=== PATIENT | female | born 1960 | race Caucasian/White ===

== ENCOUNTER 2017-09-30 14:25 | Emergency (ER) | payer OTHER ==
--- OUTSIDE RECORDS SUMMARY | 2017-09-30 14:28 | XMS REPORT | Clinical Summary ---
:1960 Author Organization [facility] Address [address] [place] [address] Care Team Providers Name Role Phone Kevon Wiggins MD Primary Care Provider Allergies Active Allergy Reactions Severity Noted Date Comments Meperidine GI Intolerance 01/30/2017 VOMITTING Iodine Rash Low 01/30/2017 Penicillin G Shortness Of Breath, Rash High 01/30/2017 Current Medications Prescription Sig. Disp. Refills Start Date End Date Status PARoxetine (PAXIL) Take 40 mg by 0 12/10/2016 Active 40 MG tablet mouth daily. valsartan (DIOVAN) Take 160 mg by 0 01/10/2017 Active 160 MG tablet mouth daily. metoprolol tartrate Take 1 tablet 0 12/10/2016 Active (LOPRESSOR) 100 mg by mouth tablet daily. rOPINIRole (REQUIP) Take 1 tablet 0 12/10/2016 Active 0.5 MG tablet by mouth daily. HYDROcodone-acetami Take 1 tablet 0 01/12/2017 Active nophen (NORCO) by mouth every 7.5-325 mg per 4 (four) hours tablet as needed. atorvastatin Take 1 tablet 0 12/10/2016 Active (LIPITOR) 10 MG by mouth tablet daily. zolpidem (AMBIEN) Take 1 tablet 0 01/12/2017 Active 10 mg tablet by mouth as needed. dicyclomine Take 10 mg by Active (BENTYL) 10 MG mouth 4 (four) capsule times a day before meals and nightly. esomeprazole Take 20 mg by Active (NexIUM) 20 MG mouth daily capsule before breakfast. methocarbamol Take 1 tablet 40 tablet 3 02/02/2017 Active (ROBAXIN-750) 750 every 6 hours MG tablet as needed for spasms methocarbamol Take 1 tablet 0 01/12/2017 Discontinued (ROBAXIN) 500 MG by mouth 3 7 tablet (three) times a day. traMADol (ULTRAM) Take 1 tablet 0 01/12/2017 Discontinued 50 mg tablet by mouth 7 daily. docusate sodium Take 1 capsule 60 capsule 0 02/02/2017 (COLACE) 100 MG (100 mg total) 7 capsule by mouth 2 (two) times a day for 30 days. levoFLOXacin Take 1 tablet 2 tablet 0 02/05/2017 (LEVAQUIN) 500 MG (500 mg total) 7 tablet by mouth daily for 2 days. traMADol (ULTRAM) Take 1 tablet 60 tablet 0 02/05/2017 50 mg tablet (50 mg total) 7 by mouth every 6 (six) hours as needed for moderate pain for up to 15 days. Active Problems Problem Noted Date Lumbar degenerative disc disease 02/02/2017 Encounters Date Type Specialty Care Team Description 07/28/2017 Hospital Encounter Radiology Raulito Hopkins, Degeneration of lumbar intervertebral disc 07/24/2017 Transcribe Orders Access Raulito Hopkins, Degeneration of lumbar intervertebral disc (Primary Dx) 02/19/2017 Hospital Encounter Radiology Raulito Hopkins, DDD (degenerative disc disease), cervical; Lumbar stenosis 02/19/2017 Transcribe Orders Access Raulito Hopkins, DDD (degenerative disc disease), cervical (Primary Dx); Lumbar stenosis 02/02/2017 - Hospital Encounter General Internal Raulito Hopkins, Lumbar degenerative disc disease; 02/05/2017 Medicine Lumbar stenosis Yannick Moore MD Li, Wang, MD 02/02/2017 Procedure Pass General Surgery 02/02/2017 Surgery General Surgery Raulito Hopkins, LUMBAR FOUR - FIVE, LUMBAR FIVE - SACRAL ONE ANTERIOR LUMBAR INTERBODY FUSION 01/30/2017 Pre-Admit Testing Pre-Admission Raulito Hopkins, Preop testing Appointment Testing (Primary Dx) 01/28/2017 Anesthesia Event General Surgery Mony Albarran FNP 01/28/2017 Telephone Pre-Admission Maura De Dios Testing after 09/29/2016 Family History Medical History Relation Name Comments No Known Problems Father Diabetes Mother Relation Name Status Comments Father Mother Alive Social History Tobacco Use Types Packs/Day Years Used Date Former Smoker Quit: 2005 Smokeless Tobacco: Never Used Alcohol Use Drinks/Week oz/Week Comments No Sex Assigned at Date Recorded Not on file Last Filed Vital Signs Vital Sign Reading Time Taken Blood Pressure 170/89 02/05/2017 7:53 PM CDT Pulse 95 02/05/2017 7:53 PM CDT Temperature 37.6 C (99.6 F) 02/05/2017 7:53 PM CDT Respiratory Rate 18 02/05/2017 7:53 PM CDT Oxygen Saturation 100% 02/05/2017 7:53 PM CDT Inhaled Oxygen Concentration - - Weight 94.8 kg (209 lb 1.6 oz) 02/05/2017 5:49 AM CDT Height 162.6 cm (5' 4") 02/02/2017 8:52 PM CDT Body Mass Index 35.89 02/05/2017 5:49 AM CDT Plan of Treatment Health Maintenance Due Date Last Done Comments PAP SMEAR 1982 COLONOSCOPY 2011 MAMMOGRAM 2011 INFLUENZA VACCINE 01/27/2018 Implants Implanted Type Area Charge Histotechnologist Device Expiration Model / Serial Identifier Date / Lot Kit Bone Albina Lmbr Tprd 8ml Xxl Infuse - [id number] Human Tissue N/A: MEDTRONIC SPINAL 07/30/2018 [id number] / Implanted: Qty: 1 on 02/02/2017 by Raulito Hopkins MD Implants N/A AND BIOLOGICS / Chip Can Allograft Leader [facility] 15cc 0.1-4mm - [id number] Human Tissue Anterio MUSCULOSKELETAL 08/02/2019 [id number] / Implanted: Qty: 1 on 02/02/2017 by Raulito Hopkins MD Implants r: TRANSPLANT / Spine, FOUNDATION [id number] Multi-L evel Spacer [id number] Prmtr Xlg 8deg 14mm - [id number] [id number] IMPLANT Anterio MEDTRONIC 08/01/2022 [id number] / Implanted: Qty: 1 on 02/02/2017 by Raulito Hopkins MD DEVICES r: SOFAMOR DANEK / Spine, [id number] Multi-L evel Spacer [id number] Prmtr Lg 12deg 12mm - [id number] [id number] IMPLANT Anterio MEDTRONIC 02/19/2024 [id number] / Implanted: Qty: 1 on 02/02/2017 by Raulito Hopkins MD DEVICES r: SOFAMOR DANEK / Spine, 47CR Multi-L evel Sovereign Fa Screw [id number] 5.5 X 25mm - [id number] [id number] IMPLANT Anterio MEDTRONIC [id number] / Implanted: Qty: 2 on 02/02/2017 by Raulito Hopkins MD DEVICES r: SOFAMOR DANEK / Spine, VENDOR LOT NA Multi-L evel Set Screw [id number] 5.5 Ti Ns Brk Off - [id number] IPM IMPLANT Posteri MEDTRONIC [id number] / Implanted: Qty: 6 on 02/02/2017 by Raulito Hopkins MD DEVICES or: SOFAMOR DANEK / Spine, VENDOR LOT NA Multi-L evel Screw [id number] 5.5 Mas 6.5x50 Cc - [id number] IPM IMPLANT Posteri MEDTRONIC [id number] / Implanted: Qty: 4 on 02/02/2017 by Raulito Hopkins MD DEVICES or: SOFAMOR DANEK / Spine, VENDOR LOT NA Multi-L evel Screw [id number] 5.5 Mas 6.5x40 Cc - [id number] IPM IMPLANT Posteri MEDTRONIC [id number] / Implanted: Qty: 2 on 02/02/2017 by Raulito Hopkins MD DEVICES or: SOFAMOR DANEK / Spine, VENDOR LOT NA Sacral Blake [id number] 5.5 Ccm Ns Curv 50mm - [id number] IPM IMPLANT Posteri MEDTRONIC [id number] / Implanted: Qty: 2 on 02/02/2017 by Raulito Hopkins MD DEVICES or: SOFAMOR DANEK / Spine, VENDOR LOT NA Multi-L evel Washer Bone Grft Ti 17mm - [id number] Orthopedic Anterio MEDTRONIC SPINAL [id number] / Implanted: Qty: 2 on 02/02/2017 by Raulito Hopkins MD Trauma r: AND BIOLOGICS / Implants Spine, VENDOR LOT NA Multi-L evel Kit Selnt Fibrin Humn Hmsts Surgy 5ml Evicel - [id number] Surgical Posteri ETHICON - 04/28/2018 [id number] / Implanted: Qty: 1 on 02/02/2017 by Raulito Hopkins MD Implants; or: / Expanders; Spine, [id number] Extenders; Multi-L Surgical evel Wires Kit Selnt Fibrin Humn Hmsts Surgy 5ml Evicel - [id number] Surgical Posteri ETHICON - 04/28/2018 [id number] / Implanted: Qty: 1 on 02/02/2017 by Raulito Hopkins MD Implants; or: / Expanders; Spine, [id number] Extenders; Multi-L Surgical evel Wires Procedures Procedure Name Priority Date/Time Associated Diagnosis Comments IN AN ELECTIVE Routine 02/02/2017 8:40 AM ENDOTRACHEAL AIRWAY CDT Procedure Note - Hector Keita Jr., WARP SPINNER - 02/02/2017 8:39 AM CDT Airway Date/Time: 02/02/2017 8:27 AM Performed by: HECTOR KEITA JR Authorized by: KETAN RODRÍGUEZ Location: OR Urgency: Elective Difficult Airway: No Anesthesiologist: KETAN RODRÍGUEZ Resident/WARP SPINNER: HECTOR KEITA JR Performed by: resident/WARP SPINNER Preoxygenated with 100% O2: Yes C-spine Precautions Maintained Throughout: Yes Mask Ventilation: Easy mask Final Airway Type: Endotracheal airway Final Endotracheal Airway: ETT Cuffed: Yes Technique Used: Direct laryngoscopy Devices/Methods Used in Placement: Intubating stylet Insertion Site: Oral Blade Type: Qureshi Laryngoscope Blade/Videolaryngoscope Blade Size: 2 ETT Size (mm): 7.0 Cuff at minimum occlusion pressure: Yes Measured from: Lips ETT to Lips (cm): 21 Placement Verified by: CO2 detection, direct visualization and equal breath sounds Laryngoscopic view: Grade I - full view of glottis Rapid Sequence Induction (RSI): No Modified RSI: No Number of Attempts at Approach: 1 Smooth IV induction; DL x1; ETT 7.0 @21cm; Atraumatic; Suctioned; +ETCO2 after 09/29/[address] Lumbar Spine Wo Contrast (07/28/2017 1:24 PM)Only the most recent of2 resultswithin the time period is included. Specimen Performing [facility] [address] [place] [address] Narrative EXAMINATION:CT LUMBAR SPINE WO CONTRAST CLINICAL HISTORY:M51.36 Other intervertebral disc degenerationlumbar region, M51.36 COMPARISON:February 03, 2017 TECHNIQUE: CT imaging was performed with iterative reconstruction technique and /or automated exposure control to reduce radiation dose. IMPRESSION: 5 nonrib-bearing lumbar type vertebrae. Stable L4-S1 fusion hardware and laminectomy changes. Interval partial bony bridging of the disc level. Interval resolution of foci of air. There is some residual fat stranding and edematous changes in the posterior paraspinal soft tissues at the level of the laminectomies. No definite fluid collections. Lumbar spine alignment is within normal limits. No fractures or aggressive bony lesions. No significant canal narrowing. Mild degenerative changes of bilateral sacroiliac joints. [facility]-[id number] Procedure Note Interface, Radiology Results Incoming - 07/28/2017 2:38 PM TOPPER PRESS OPERATOR AUTOMATIC EXAMINATION: CT LUMBAR SPINE WO CONTRAST CLINICAL HISTORY: M51.36 Other intervertebral disc degeneration lumbar region , M51.36 COMPARISON: February 03, 2017 TECHNIQUE: CT imaging was performed with iterative reconstruction technique and /or automated exposure control to reduce radiation dose. IMPRESSION: 5 nonrib-bearing lumbar type vertebrae. Stable L4-S1 fusion hardware and laminectomy changes. Interval partial bony bridging of the disc level. Interval resolution of foci of air. There is some residual fat stranding and edematous changes in the posterior paraspinal soft tissues at the level of the laminectomies. No definite fluid collections. Lumbar spine alignment is within normal limits. No fractures or aggressive bony lesions. No significant canal narrowing. Mild degenerative changes of bilateral sacroiliac joints. [facility]-[id number] XR Lumbar Spine Ap Lateral Flexion And Extension (02/19/2017 9:41 AM) Specimen Performing Laboratory [facility] [address] [place] [address] Narrative EXAMINATION:XR LUMBAR SPINE AP LATERALFLEXION AND EXTENSION CLINICAL HISTORY:M50.30 Other cervical disc degenerationunspecified cervical region, M48.06 Spinal stenosislumbar region, lumbar ddd lumbar stenosis COMPARISON:CT lumbar spine February 03, 2017. FINDINGS: 1.There are 5 nonrib-bearing lumbar vertebrae. There is mild curvature of the lumbar spine convex towards the right. 2.Postop changes are again noted with bilateral laminectomy defects at L5 and laminotomy changes at the inferior aspect of L4 and superior aspect of S1. There are bilateral pedicle screw and vertical blake internal fixation devices from L4 to S1 with screws present bilaterally at each level. There are grafts in the disc spaces at L4-5 and L5-S1 with anchoring washer and screws through the anterior superior aspect of the centrum of L5 and another through the anterior superior aspect of the centrum of S1. There is very slight retrolisthesis at L4-5.Otherwise the alignment is normal and there is no abnormal movement on the dynamic views. The interbody fusions are not mature in appearance at this time. 3.There is no other significant finding in the spine. There are surgical clips in the right upper quadrant. IMPRESSION: Postoperative anterior and posterior fusion changes L4-5 and L5-S1. These changes were in anacute phase on the prior study. Otherwise no significant interval change. [facility]-[id number] Procedure Note Hm Interface, Radiology Results Incoming - 02/19/2017 11:45 AM CDT EXAMINATION: XR LUMBAR SPINE AP LATERAL FLEXION AND EXTENSION CLINICAL HISTORY: M50.30 Other cervical disc degeneration unspecified cervical region, M48.06 Spinal stenosis lumbar region, lumbar ddd lumbar stenosis COMPARISON: CT lumbar spine February 03, 2017. FINDINGS: 1. There are 5 nonrib-bearing lumbar vertebrae. There is mild curvature of the lumbar spine convex towards the right. 2. Postop changes are again noted with bilateral laminectomy defects at L5 and laminotomy changes at the inferior aspect of L4 and superior aspect of S1. There are bilateral pedicle screw and vertical blake internal fixation devices from L4 to S1 with screws present bilaterally at each level. There are grafts in the disc spaces at L4-5 and L5-S1 with anchoring washer and screws through the anterior superior aspect of the centrum of L5 and another through the anterior superior aspect of the centrum of S1. There is very slight retrolisthesis at L4-5. Otherwise the alignment is normal and there is no abnormal movement on the dynamic views. The interbody fusions are not mature in appearance at this time. 3. There is no other significant finding in the spine. There are surgical clips in the right upper quadrant. IMPRESSION: Postoperative anterior and posterior fusion changes L4-5 and L5-S1. These changes were in an acute phase on the prior study. Otherwise no significant interval change. [facility]-[id number] Estimated GFR (02/05/2017 5:00 AM)Only the most recent of3 resultswithin the time period is included. Component Value Ref Range GFR Non Af Amer >90 mL/min/1.73 m2 GFR Af Amer >90 mL/min/1.73 m2 Comment: Chronic kidney disease: <60 mL/min/1.73m2 Kidney failure: <15 mL/min/1.73m2 The estimated GFR is calculated from the IDMS-traceable Modification of Diet in Renal Disease Equation. The accuracy of the calculation is poor when the creatinine is normal. Calculated values >90 mL/min/1.73m2 are not reported. This equation has not been validated in children (<18 years), women, the elderly (>70 years), or ethnic groups other than Caucasians and Americans. Specimen Performing Laboratory Plasma specimen [facility] DEPARTMENT OF PATHOLOGY AND GENOMIC MEDICINE [address] [place] [id number] CBC with platelet and differential (02/05/2017 5:00 AM)Only the most recent of3 resultswithin the time period is included. Component Value Ref Range WBC 7.2 4.5 - 11.0 k/uL RBC 3.02 (L) 4.20 - 5.50 m/uL HGB 9.0 (L) 12.0 - 16.0 g/dL HCT 28.4 (L) 37.0 - 47.0 % MCV 94.0 82.0 - 100.0 fL MCH 29.8 27.0 - 34.0 pg MCHC 31.7 31.0 - 37.0 g/dL RDW - SD 43.3 37.0 - 55.0 fL MPV 10.4 6.9 - 11.0 fL Platelet count 237 150 - 400 K/uL Nucleated RBC 0.00 /100 WBC Neutrophils 59.6 39.0 - 69.0 % Lymphocytes 29.6 25.0 - 45.0 % Monocytes 9.4 0.0 - 10.0 % Eosinophils 0.7 0.0 - 5.0 % Basophils 0.3 0.0 - 1.0 % Immature granulocytes 0.4 0.0 - 1.0 % Specimen Performing Laboratory Blood [facility] DEPARTMENT OF PATHOLOGY AND [facility] MEDICINE [address] [place] [address] Basic metabolic panel (02/05/2017 5:00 AM)Only the most recent of3 resultswithin the time period is included. Component Value Ref Range Sodium 141 135 - 148 mEq/L Potassium 3.9 3.5 - 5.0 mEq/L Chloride 104 98 - 112 mEq/L CO2 26 24 - 31 mEq/L Anion gap 11 7 - 15 mEq/L Comment: Starting from September , anion gap calculation no longer incorporates potassium. Please note the change. BUN 19 6 - 20 mg/dL Creatinine 0.6 0.5 - 0.9 mg/dL Glucose 100 (H) 65 - 99 mg/dL Calcium 8.7 8.3 - 10.2 mg/dL Specimen Performing Laboratory Plasma specimen [facility] DEPARTMENT OF PATHOLOGY AND GENOMIC MEDICINE [address] [place] [address] XR Chest 1 Vw Portable (02/02/2017 4:22 PM) Specimen Performing Laboratory [facility] [address] [place] [address] Narrative Examination:XR CHEST 1 VW PORTABLE Clinical history:"UVC Line Placement, post central line placement" Comparison:01/27/2017 Impression: There are no apparent infiltrates, pleural effusions, or pneumothoraces. Faint left basilar atelectasis is noted.A right jugular nontunneled central venous catheter is in place, the tip of which is located within the cavoatrial junction.The cardiomediastinal silhouette is not enlarged and the imaged bones are without apparent acute abnormalities. [facility]-[id number] Procedure Note Interface, Radiology Results Incoming - 02/02/2017 4:26 PM CDT Examination: XR CHEST 1 VW PORTABLE Clinical history: "UVC Line Placement, post central line placement" Comparison: 01/27/2017 Impression: There are no apparent infiltrates, pleural effusions, or pneumothoraces. Faint left basilar atelectasis is noted. A right jugular nontunneled central venous catheter is in place, the tip of which is located within the cavoatrial junction. The cardiomediastinal silhouette is not enlarged and the imaged bones are without apparent acute abnormalities. [id number] [place] > I Hour (02/02/2017 3:00 PM) Specimen Performing Laboratory [facility] [address] [place] [address] Narrative OR [place] 1 HOUR CLINICAL HISTORY: IMPRESSION: Fluoroscopy was provided. No radiologist present.Please see procedure report for discussion of procedure, findings and fluoroscopic time. [id number] Procedure Note Interface, Radiology Results Incoming - 02/02/2017 4:51 PM CDT OR [place] 1 HOUR CLINICAL HISTORY: IMPRESSION: Fluoroscopy was provided. No radiologist present. Please see procedure report for discussion of procedure, findings and fluoroscopic time. [id number] Urinalysis screen and microscopy, with reflex to culture (02/02/2017 8:33 AM) Component Value Ref Range Specimen site Catheterized Color, UA Yellow Appearance, UA Clear Specific gravity, UA 1.019 1.001 - 1.030 pH, UA 5.0 5.0 - 9.0 Protein, UA Negative Negative Glucose, UA Negative Negative Ketones, UA Negative Negative Bilirubin, UA Negative Negative Blood, UA Small (A) Negative Nitrite, UA Negative Negative Urobilinogen, UA <2.0 <2.0 E.U./dL Leukocyte esterase, UA Small (A) Negative Epithelial cells, UA 1 /HPF Round epithelial cells, UA 1 0 - 5 /HPF WBC, UA 48 (H) 0 - 4 /HPF RBC, UA 4 (H) 0 - 2 /HPF Bacteria, UA None seen None seen WBC clumps, UA Few (A) Yeast, UA Few (A) Yeast with pseudohyphae, UA None seen Amorphous crystals Few Specimen Performing Laboratory Urine - Urine, catheter [facility] DEPARTMENT OF PATHOLOGY AND GENOMIC MEDICINE [id number] [place] [address] Gram stain (02/02/2017 8:33 AM) Component Value Ref Range Gram stain result Rare WBC's No organisms seen Comment: Specimen Information Specimen Source: Urine Specimen Site: See UA Specimen Performing Laboratory Urine [facility] DEPARTMENT OF PATHOLOGY AND GENOMIC MEDICINE [address] [place] [phone] Urine culture (02/02/2017 8:33 AM) Component Value Ref Range Urine culture isolate Escherichia coli 10-5 cfu/ml (A) Comment: Specimen Information Specimen Source: Urine Specimen Site: See UA Specimen Performing Laboratory Urine [facility] DEPARTMENT OF PATHOLOGY AND GENOMIC MEDICINE [address] [place] [address] Organism Antibiotic Method Susceptibility Escherichia coli Ampicillin COURTNEY <=2 mcg/mL: Susceptible Escherichia coli Amoxicillin/Clavulanate COURTNEY 4/2 mcg/mL: Susceptible Escherichia coli Amikacin COURTNEY <=4 mcg/mL: Susceptible Escherichia coli Aztreonam COURTNEY <=1 mcg/mL: Susceptible Escherichia coli Ceftazidime COURT[place] <=0.5 mcg/mL: Susceptible Escherichia coli Ciprofloxacin COURTNEY <=0.5 mcg/mL: Susceptible Escherichia coli Ceftriaxone COURTNEY <=0.5 mcg/mL: Susceptible Escherichia coli Cefuroxime Sodium COURTNEY <=4 mcg/mL: Susceptible Escherichia coli Cefazolin COURTNEY 2 mcg/mL: Susceptible Escherichia coli Cefipime COURTNEY <=0.5 mcg/mL: Susceptible Escherichia coli Nitrofurantoin COURTNEY <=16 mcg/mL: Susceptible Escherichia coli Cefoxitin COURTNEY <=4 mcg/mL: Susceptible Escherichia coli Gentamicin COURTNEY <=1 mcg/mL: Susceptible Escherichia coli Imipenem [place] <=0.25 mcg/mL: Susceptible Escherichia coli Levofloxacin COURTNEY <=1 mcg/mL: Susceptible Escherichia coli Tobramycin COURTNEY 1 mcg/mL: Susceptible Escherichia coli Ampicillin/Sulbactam COURTNEY 4/2 mcg/mL: Susceptible Escherichia coli Trimethoprim/Sulfamethoxazole COURTNEY <=0.5/9.5 mcg/mL: Susceptible Escherichia coli Tetracycline COURTNEY <=1 mcg/mL: Susceptible Escherichia coli Piperacillin/Tazobactam COURTNEY <=2/4 mcg/mL: Susceptible Escherichia coli Ertapenem COURTNEY <=0.125 mcg/mL: Susceptible POC glucose (02/02/2017 6:37 AM) Component Value Ref Range POC glucose 102 (H) 65 - 99 mg/dL Comment: No Action Needed Meter ID: [id number] Vice President Sales And Marketing: Bill Harper Specimen Performing Laboratory [facility] DEPARTMENT OF PATHOLOGY AND GENOMIC MEDICINE [address] [place] [phone] Type and screen (01/30/2017 3:06 PM) Component Value Ref Range ABO grouping A Rh type POS Antibody screen (gel) NEG Specimen Performing Laboratory Blood [facility] DEPARTMENT OF PATHOLOGY AND GENOMIC MEDICINE [address] [place] [address] after 09/29/2016 Insurance Payer Benefit Plan / Group Subscriber ID Type Phone Address MEDICARE MEDICARE PART A AND B xxxxxxxxxx Medicare [place], [place] [phone] [address]
[2017-09-30 15:24] LABS: Potassium 3.6 mEq/L (3.6-5.0)
[2017-09-30 15:30] LABS: Absolute Lymphocytes (CBC) 1.5 K/uL (0.7-4.9); Absolute Monocytes 0.3 K/uL (0.1-1.3); Absolute Neutrophil 3.2 K/uL (1.8-8.0); Albumin 4.6 g/dL (3.2-5.5); Basophils % 0.8 % (0-1.3); Bilirubin Direct 0.1 mg/dL (0-0.2); Bilirubin Total 0.9 mg/dL (0.3-1.2); Eosinophils % 2.6 % (0-4.4); Hematocrit 38.7 % (36.0-45.0); Lymphocytes % 29.9 % (15.3-44.8); MCH 29.2 pg (27.0-35.0); MCV 85.3 fL (80-100); Protein, Total 7.1 g/dL (6.0-8.3); RBC Red Blood Cell Count 4.54 M/uL (3.86-4.86)
[2017-09-30] MEDS ORDERED: ONDANSETRON 4 MG/2 ML VIAL ONE (15:40)
[2017-09-30] MEDS ORDERED: MORPHINE 4 MG/ML SYR ONE (15:40)
[2017-09-30] MEDS ORDERED: NA CHLORIDE 0.9% 1,000 ML ONE (15:40)
[2017-09-30 15:54] LABS: Urine Blood TRACE (NEG); Urine Glucose NEGATIVE (NEG); Urine Protein NEGATIVE (NEG); Urine pH 6.5 (5.0-7.0)
[2017-09-30 16:07] LABS: Urine Bacteria NONE SEEN /HPF (<20); Urine Culture Reflex Order NOT NEEDED; Urine RBC <5 /HPF (NONE SEEN)
--- NOTE | 2017-09-30 17:17 | RAD REPORT ---
EXAM DESCRIPTION: CTAbdomen Pelvis W Contrast - 09/30/2017 5:10 pm CLINICAL HISTORY: Abdominal pain. COMPARISON: 07/09/2016, 11/23/2015, 12/06/2012 TECHNIQUE: Biphasic CT imaging of the abdomen and pelvis was performed with 100 ml non-ionic IV cont rast. All CT scans are performed using dose optimization technique as appropriate and may include automated exposure control or mA/KV adjustment according to patient size. FINDINGS: The lung bases are clear.A small hiatal hernia is noted. Diffuse fatty liver is present. Cholecystectomy clips are noted. The spleen, pancreas, adrenal glands and kidneys are within normal limits. No bowel obstruction, free air, free fluid or abscess. The appendix is surgically absent. Lipoma is noted along the left oblique musculature in the left flank inferiorly. Moderate stool is present in t he sigmoid colon. Scattered colonic diverticulosis is seen without diverticulitis. No evidence of sig nificant lymphadenopathy. Postsurgical changes involve lumbar spine with hardware in place. IMPRESSION: No acute intra-abdominal or pelvic finding. Fatty liver. Moderate colonic stool.
--- NOTE | 2017-09-30 17:22 | ER ---
Nurse's Notes [facility] Name: Oneida Lea Age: 57 yrs Sex: Female : 1960 Arrival Date: 09/30/2017 Time: 14:28 Bed 25 Private MD: Diagnosis: Noninfective gastroenteritis and colitis, unspecified Presentation: 09/30 14:37 Presenting complaint: Patient states: "I have diverticulitis". Transition of care: lk1 patient was not received from another setting of care. Onset of symptoms was September 24, 2017. Care prior to arrival: None. 14:37 Method Of Arrival: Ambulatory lk1 14:37 Acuity: CINTHYA 3 lk1 Triage Assessment: 14:39 General: Appears in no apparent distress. Behavior is calm, cooperative, appropriate lk1 for age. Pain: Complains of pain in right lower quadrant and left lower quadrant Pain radiates to low back area Pain currently is 7 out of 10 on a pain scale. GI: Reports cramping, diarrhea, nausea. Historical: - Allergies: 14:39 Demerol; lk1 14:39 PENICILLINS; lk1 14:39 topical iodine; lk1 - Home Meds: 17:05 losartan 100 mg oral tab once daily [Active]; zolpidem 10 mg Oral tab 1 tab once daily tl3 [Active]; hydrocodone-acetaminophen 5-325 mg oral tab 1 tab every 6 hours for Pain [Active]; methocarbamol 750 mg Oral tab 1 tab twice a day [Active]; metronidazole 500 mg Oral tab 1 tab 3 times per day [Active]; Zofran (as hydrochloride) 4 mg oral tab every 8 hours [Active]; Cipro 500 mg oral tab 1 tab 2 times per day [Active]; - PMHx: 14:39 Anxiety; Chronic pain; Depression; Diverticulitis; High Cholesterol; Hypertension; lk1 - PSHx: 14:39 Hysterectomy; Cholecystectomy; Appendectomy; back surgery; spinal fusion; lk1 14:39 Tonsillectomy; lk1 - Immunization history:: Adult Immunizations up to date. - Social history:: Smoking status: Patient/guardian denies using tobacco. Screenin:05 Abuse screen: Denies threats or abuse. Nutritional screening: No deficits noted. tl3 Tuberculosis screening: No symptoms or risk factors identified. Fall Risk None identified. Assessment: 14:51 General: Appears uncomfortable, well groomed, well developed, well nourished, Behavior tl3 is calm, cooperative, appropriate for age. 15:05 Pain: Complains of pain in left upper quadrant and right upper quadrant and back and tl3 low back area and abdomen and left lower quadrant and right lower quadrant Pain currently is 8 out of 10 on a pain scale. 15:05 Neuro: Level of Consciousness is awake, alert, obeys commands, Oriented to person, tl3 place, time, situation, Appropriate for age. Cardiovascular: Heart tones S1 S2 present Capillary refill < 3 seconds in bilateral fingers. Respiratory: Airway is patent Trachea midline Respiratory effort is even, unlabored, Respiratory pattern is regular, symmetrical, Breath sounds are clear bilaterally. GI: Abdomen is round Bowel sounds present X 4 quads. : No signs and/or symptoms were reported regarding the genitourinary system. EENT: No signs and/or symptoms were reported regarding the EENT system. Derm: No signs and/or symptoms reported regarding the dermatologic system. Musculoskeletal: No signs and/or symptoms reported regarding the musculoskeletal system. 16:28 Reassessment: Patient and/or family updated on plan of care and expected duration. Pain tl3 level reassessed. Patient is alert, oriented x 3, equal unlabored respirations, skin warm/dry/pink. pt ambulated to RR, states that Morphine eased pain. 16:32 Reassessment: pt vomiting in restroom. tl3 17:14 Reassessment: Patient and/or family updated on plan of care and expected duration. Pain tl3 level reassessed. Patient is alert, oriented x 3, equal unlabored respirations, skin warm/dry/pink. Patient states symptoms have improved. Vital Signs: 14:40 BP 148 / 98; Pulse 82; Resp 16; Temp 98.1(O); Pulse Ox 97% on R/A; Weight 86.18 kg (R); lk1 Height 5 ft. 4 in. (162.56 cm) (R); Pain 7/10; 16:28 Pain 5/10; tl3 16:28 BP 140 / 95; Pulse 80; Resp 18; Pulse Ox 98% ; tl3 17:37 BP 162 / 89; Pulse 70; Resp 17; Pulse Ox 100% on R/A; dh3 14:40 Body Mass Index 32.61 (86.18 kg, 162.56 cm) lk1 ED Course: 14:28 Patient arrived in ED. rg4 14:38 Triage completed. lk1 14:43 Latasha Cruz FNP-C is [facility]. kb 14:43 Preston Brito MD is Attending Physician. kb 14:43 Arm band placed on right wrist. lk1 14:50 Giovana Ruffin, RN is Primary Nurse. tl3 15:05 Resting quietly. tl3 15:05 Patient has correct armband on for positive identification. Placed in gown. Bed in low tl3 position. Call light in reach. Side rails up X 1. Warm blanket given. 15:05 No provider procedures requiring assistance completed. tl3 15:07 Initial lab(s) drawn, by me, sent to lab. Inserted saline lock: 22 gauge in right dh3 forearm, using aseptic technique. Blood collected. 15:44 Urine Dipstick--Ancillary (enter results) Sent. tl3 16:26 Missed attempt(s): 22 gauge in left antecubital area. IV discontinued, area became red tl3 and infusion stopped flowing. 16:26 Missed attempt(s): 22 gauge in left forearm. tl3 16:26 Missed attempt(s): 24 gauge in right wrist. tl3 16:48 Inserted saline lock: 24 gauge in right antecubital area, using aseptic technique. dh3 16:[address] via wheelchair. tl3 17:10 CT Abd/Pelvis - W/Contrast In Process Unspecified. EDMS 17:13 Patient moved back from CT. tl3 17:59 IV discontinued, intact, bleeding controlled, No redness/swelling at site. Pressure tl3 dressing applied. Administered Medications: 15:35 Drug: NS 0.9% 1000 ml Route: IV; Rate: 1000 ml; Site: left antecubital; Delivery: tl3 Primary tubing; 16:00 Follow up: IV Pause: 09/30/2017 16:00; IV Pause Reason: Limited IV access/Medication tl3 interaction; IV infiltrated 16:35 Follow up: IV Status: Completed infusion; IV Intake: 1000ml tl3 15:35 Drug: Zofran 4 mg Route: IVP; Infused Over: 3 mins; Site: left antecubital; tl3 16:30 Follow up: Response: No adverse reaction; Nausea is decreased tl3 15:35 Drug: morphine 4 mg Route: IVP; Infused Over: 3 mins; Site: left antecubital; tl3 16:30 Follow up: Response: No adverse reaction; Pain is decreased tl3 Intake: 16:35 IV: 1000ml; Total: 1000ml. tl3 Outcome: 17:21 Discharge ordered by MD. villa 17:59 Discharged to home ambulatory. tl3 17:59 Condition: stable 17:59 Discharge instructions given to patient, Instructed on discharge instructions, follow up and referral plans. medication usage, Demonstrated understanding of instructions, follow-up care, medications, Prescriptions given X 2. 18:00 Patient left the ED. tl3 Signatures: Dispatcher [employer] EDMS Latasha Cruz, SU[employer]OR [employer]-C [employer]PER[employer]-Rani Ramirez, RN RN gerard1 Swathi Slade4 Hermelinda Villatoro 3 Giovana Ruffin, RN RN tl3
--- NOTE | 2017-09-30 17:22 | EDPHYS ---
Physician Documentation [facility] Name: Oneida Lea Age: 57 yrs Sex: Female : 1960 Arrival Date: 09/30/2017 Time: 14:28 Bed 25 Private MD: ED Physician Preston Brito HPI: 09/30 14:56 This 57 yrs old Female presents to ER via Ambulatory with complaints of kb Nausea, Diarrhea, Abdominal Pain. 14:56 The patient presents with abdominal pain in the lower abdomen. Onset: The kb symptoms/episode began/occurred 1 week(s) ago. The symptoms do not radiate. Associated signs and symptoms: Pertinent positives: nausea, vomiting, and diarrhea, Pertinent negatives: anorexia, blood in stools, chest pain, constipation, dysuria, fever, headache, hematuria, palpitations, shortness of breath, vaginal discharge, vomiting blood. The symptoms are described as achy. Modifying factors: The symptoms are alleviated by nothing, the symptoms are aggravated by pressure. Severity of pain: At its worst the pain was moderate in the emergency department the pain is unchanged. The patient has not experienced similar symptoms in the past. The patient has not recently seen a physician. Pt states she has been having n/v/d and abd pain for a week. Went to dr funes on Thursday and diagnosed with diverticulitis. Was told to call him if she wasn't starting to get better by today. Reports she called him today, symptoms still the same so she came in. Started cipro and flagyl on Thursday. Historical: - Allergies: 14:39 Demerol; lk1 14:39 PENICILLINS; lk1 14:39 topical iodine; lk1 - Home Meds: 17:05 losartan 100 mg oral tab once daily [Active]; zolpidem 10 mg Oral tab 1 tab once daily tl3 [Active]; hydrocodone-acetaminophen 5-325 mg oral tab 1 tab every 6 hours for Pain [Active]; methocarbamol 750 mg Oral tab 1 tab twice a day [Active]; metronidazole 500 mg Oral tab 1 tab 3 times per day [Active]; Zofran (as hydrochloride) 4 mg oral tab every 8 hours [Active]; Cipro 500 mg oral tab 1 tab 2 times per day [Active]; - PMHx: 14:39 Anxiety; Chronic pain; Depression; Diverticulitis; High Cholesterol; Hypertension; lk1 - PSHx: 14:39 Hysterectomy; Cholecystectomy; Appendectomy; back surgery; spinal fusion; lk1 14:39 Tonsillectomy; lk1 - Immunization history:: Adult Immunizations up to date. - Social history:: Smoking status: Patient/guardian denies using tobacco. ROS: 14:55 Constitutional: Negative for fever, chills, and weight loss, Cardiovascular: Negative kb for chest pain, palpitations, and edema, Respiratory: Negative for shortness of breath, cough, wheezing, and pleuritic chest pain, Back: Negative for injury and pain, : Negative for injury, bleeding, discharge, and swelling, MS/Extremity: Negative for injury and deformity, Skin: Negative for injury, rash, and discoloration, Neuro: Negative for headache, weakness, numbness, tingling, and seizure. 14:55 Abdomen/GI: Positive for abdominal pain, nausea, vomiting, and diarrhea, Negative for constipation, abdominal cramps, abdominal distension, anorexia. Exam: 14:55 Constitutional: This is a well developed, well nourished patient who is awake, alert, kb and in no acute distress. Head/Face: Normocephalic, atraumatic. ENT: Nares patent. No nasal discharge, no septal abnormalities noted. Tympanic membranes are normal and external auditory canals are clear. Oropharynx with no redness, swelling, or masses, exudates, or evidence of obstruction, uvula midline. Mucous membranes moist. Neck: Trachea midline, no thyromegaly or masses palpated, and no cervical lymphadenopathy. Supple, full range of motion without nuchal rigidity, or vertebral point tenderness. No Meningismus. Chest/axilla: Normal chest wall appearance and motion. Nontender with no deformity. No lesions are appreciated. Cardiovascular: Regular rate and rhythm with a normal S1 and S2. No gallops, murmurs, or rubs. Normal PMI, no JVD. No pulse deficits. Respiratory: Lungs have equal breath sounds bilaterally, clear to auscultation and percussion. No rales, rhonchi or wheezes noted. No increased work of breathing, no retractions or nasal flaring. Skin: Warm, dry with normal turgor. Normal color with no rashes, no lesions, and no evidence of cellulitis. MS/ Extremity: Pulses equal, no cyanosis. Neurovascular intact. Full, normal range of motion. Neuro: Awake and alert, GCS 15, oriented to person, place, time, and situation. Cranial nerves II-XII grossly intact. Motor strength 5/5 in all extremities. Sensory grossly intact. Cerebellar exam normal. Normal gait. 14:55 Abdomen/GI: Inspection: abdomen appears normal, Bowel sounds: normal, in all quadrants, Palpation: soft, in all quadrants, mild abdominal tenderness, in the left upper quadrant and right lower quadrant, moderate abdominal tenderness, in the right upper quadrant and left lower quadrant. Vital Signs: 14:40 BP 148 / 98; Pulse 82; Resp 16; Temp 98.1(O); Pulse Ox 97% on R/A; Weight 86.18 kg (R); lk1 Height 5 ft. 4 in. (162.56 cm) (R); Pain 7/10; 16:28 Pain 5/10; tl3 16:28 BP 140 / 95; Pulse 80; Resp 18; Pulse Ox 98% ; tl3 17:37 BP 162 / 89; Pulse 70; Resp 17; Pulse Ox 100% on R/A; dh3 14:40 Body Mass Index 32.61 (86.18 kg, 162.56 cm) lk1 MDM: 14:44 Patient medically screened. kb 14:55 Data reviewed: vital signs, nurses notes. Data interpreted: Pulse oximetry: on room air kb is 97 %. Interpretation: normal. 17:21 Counseling: I had a detailed discussion with the patient and/or guardian regarding: the kb historical points, exam findings, and any diagnostic results supporting the discharge/admit diagnosis, lab results, radiology results, the need for outpatient follow up, a family practitioner, to return to the emergency department if symptoms worsen or persist or if there are any questions or concerns that arise at home. 09/30 14:52 Order name: Amylase, Serum; Complete Time: 15:31 kb 09/30 14:52 Order name: Basic Metabolic Panel; Complete Time: 15:31 kb 09/30 14:52 Order name: CBC with Diff; Complete Time: 15:50 kb 09/30 14:52 Order name: Hepatic Function; Complete Time: 15:31 kb 09/30 14:52 Order name: Lipase; Complete Time: 15:31 kb 09/30 14:52 Order name: Urine Microscopic Only; Complete Time: 16:10 kb 09/30 14:52 Order name: IV Saline Lock; Complete Time: 15:07 kb 09/30 14:52 Order name: Labs collected and sent; Complete Time: 15:08 kb 09/30 14:52 Order name: Urine Dipstick-Ancillary (obtain specimen); Complete Time: 15:45 kb 09/30 14:52 Order name: CT Abd/Pelvis - W/Contrast; Complete Time: 17:18 kb 09/30 15:32 Order name: Urine Dipstick--Ancillary (enter results); Complete Time: 15:56 bd Administered Medications: 15:35 Drug: NS 0.9% 1000 ml Route: IV; Rate: 1000 ml; Site: left antecubital; Delivery: tl3 Primary tubing; 16:00 Follow up: IV Pause: 09/30/2017 16:00; IV Pause Reason: Limited IV access/Medication tl3 interaction; IV infiltrated 16:35 Follow up: IV Status: Completed infusion; IV Intake: 1000ml tl3 15:35 Drug: Zofran 4 mg Route: IVP; Infused Over: 3 mins; Site: left antecubital; tl3 16:30 Follow up: Response: No adverse reaction; Nausea is decreased tl3 15:35 Drug: morphine 4 mg Route: IVP; Infused Over: 3 mins; Site: left antecubital; tl3 16:30 Follow up: Response: No adverse reaction; Pain is decreased tl3 Disposition: 10/01 07:35 Co-signature as Attending Physician, Preston Brito MD I agree with the assessment and zay plan of care. Disposition: 09/30/17 17:21 Discharged to Home. Impression: Noninfective gastroenteritis and colitis, unspecified. - Condition is Stable. - Discharge Instructions: Food Choices to Help Relieve Diarrhea, Adult, Viral Gastroenteritis. - Prescriptions for Bentyl 20 mg Oral Tablet - take 1 tablet by ORAL route every 6 hours As needed; 20 tablet. Zofran 4 mg Oral Tablet - take 1 tablet by ORAL route every 6 hours As needed; 20 tablet. - Medication Reconciliation Form, Thank You Letter, Antibiotic Education, Prescription Opioid Use form. - Follow up: Emergency Department; When: As needed; Reason: Worsening of condition. Follow up: Private Physician; When: 2 - 3 days; Reason: Recheck today's complaints, Continuance of care, Re-evaluation by your physician. Signatures: Dispatcher [employer] Latasha Dasilva, HARVEYC [place]-Preston Aaron MD MD cha Kluge, Leah, RN RN lk1 Giovana Ruffin RN RN tl3
[2017-09-30 18:16] VITALS: TEMP 98.1
[2017-09-30 18:24] VITALS: BP 162/89; O2SAT 100
== END 2017-09-30 18:00 | disposition home or self-care (01) ==
LOC: ER 14:25
DX: K52.9 Noninfective gastroenteritis and colitis, unspecified (principal); I10 Essential (primary) hypertension; E78.00 Pure hypercholesterolemia, unspecified; F32.9 Major depressive disorder, single episode, unspecified; F41.9 Anxiety disorder, unspecified; Z88.0 Allergy status to penicillin; Z88.5 Allergy status to narcotic agent; Z91.048 Other nonmedicinal substance allergy status
CPT/HCPCS: 36415; 74177; 80048; 80076; 82150; 83690; 85025; J2405; J7030; Q9967; 81003; 81015; 96374; 96375; 99284

== ENCOUNTER 2017-10-07 14:51 | Inpatient (IN) | payer OTHER ==
--- OUTSIDE RECORDS SUMMARY | 2017-10-07 14:54 | XMS REPORT | Clinical Summary ---
:1960 Author Organization [facility] Address [address] [place] [address] Care Team Providers Name Role Phone Kevon [...] Telephone Pre-Admission Maura De Dios Testing after 10/06/2016 Family History Medical History Relation Name Comments [...] INFLUENZA VACCINE 01/27/2018 Implants Implanted Type Area Numerical Tool Programmer Device Expiration Model / Serial Identifier Date / Lot Kit Bone Albina Lmbr Tprd 8ml Xxl Infuse - [id number] Human Tissue N/A: MEDTRONIC SPINAL 07/30/2018 [id number] / Implanted: Qty: 1 on 02/02/2017 by Raulito Hopkins MD Implants N/A AND BIOLOGICS / Chip Can Allograft Leader [facility] 15cc 0.1-4mm - [id number] Human Tissue Anterio MUSCULOSKELETAL 08/02/2019 [id number] / Implanted: Qty: 1 on 02/02/2017 by Raulito Hopkins MD Implants r: TRANSPLANT / Spine, FOUNDATION [id number] Multi-L evel Spacer [id number] Prmtr Xlg 8deg 14mm - [id number] IPM IMPLANT Anterio MEDTRONIC 08/01/2022 [id number] / Implanted: Qty: 1 on 02/02/2017 by Raulito Hopkins MD DEVICES r: SOFAMOR DANEK / Spine, [id number] Multi-L evel Spacer [id number] Prmtr Lg 12deg 12mm - [id number] IPM IMPLANT Anterio MEDTRONIC 02/19/2024 [id number] / Implanted: Qty: 1 on 02/02/2017 by Raulito Hopkins MD DEVICES r: SOFAMOR DANEK / Spine, 47CR Multi-L evel Sovereign Fa Screw [id number] 5.5 X 25mm - [id number] IPM IMPLANT Anterio [employer]IC [id number] / Implanted: Qty: 2 on 02/02/2017 by Raulito Hopkins MD DEVICES r: SOFAMOR DANEK / Spine, VENDOR LOT NA Multi-L evel Set Screw [id number] 5.5 Ti Ns Brk Off - [id number] IPM IMPLANT Posteri MEDTRONIC [id number] / Implanted: Qty: 6 on 02/02/2017 by Raulito Hopkins MD DEVICES or: SOFAMOR DANEK / Spine, VENDOR LOT NA Multi-L evel Screw [id number] 5.5 Mas 6.5x50 Cc - [id number] IPM IMPLANT Posteri [employer]IC [id number] / Implanted: Qty: 4 on 02/02/2017 by Raulito Hopkins MD DEVICES or: SOFAMOR DANEK / Spine, VENDOR LOT NA Multi-L evel Screw [id number] 5.5 Mas 6.5x40 Cc - [id number] IPM IMPLANT Posteri [employer] [id number] / Implanted: Qty: 2 on 02/02/2017 by Raulito Hopkins MD DEVICES or: SOFAMOR DANEK / Spine, VENDOR LOT NA Sacral Blake [id number] 5.5 Ccm Ns Curv 50mm - [id number] IPM IMPLANT Posteri [employer] [id number] / Implanted: Qty: 2 on 02/02/2017 by Raulito Hopkins MD DEVICES or: SOFAMOR DANEK / Spine, VENDOR LOT NA Multi-L evel Washer Bone Grft Ti 17mm - [id number] Orthopedic Anterio [employer] SPINAL [id number] / Implanted: Qty: 2 on 02/02/2017 by Raulito Hopkins MD Trauma r: AND BIOLOGICS / Implants Spine, VENDOR LOT NA Multi-L evel Kit Selnt Fibrin Humn Hmsts Surgy 5ml Evicel - [id number] Surgical Posteri ETHICON - 04/28/2018 [id number] / Implanted: Qty: 1 on 02/02/2017 by Raulito Hopkins MD Implants; or: / Expanders; Spine, [id number] Extenders; Multi-L Surgical evel Wires Kit Selnt Fibrin Humn Hmsts Surgy 5ml Evicel - [id number] Surgical Posteri [facility]- 04/28/2018 [id number] / Implanted: Qty: 1 on 02/02/2017 by Raulito Hopkins MD Implants; or: / Expanders; Spine, [id number] Extenders; Multi-L Surgical evel Wires Procedures Procedure Name Priority Date/Time Associated Diagnosis Comments MI AN ELECTIVE Routine 02/02/2017 8:40 AM ENDOTRACHEAL AIRWAY CDT Procedure Note - Hector Keita Jr., CUSTOMER SUPPLY COORDINATOR - 02/02/2017 8:39 AM CDT Airway Date/Time: 02/02/2017 8:27 AM Performed by: HECTOR KEITA JR Authorized by: KETAN RODRÍGUEZ Location: OR Urgency: Elective Difficult Airway: No Anesthesiologist: KETAN RODRÍGUEZ Resident/CUSTOMER SUPPLY COORDINATOR: HECTOR KEITA JR Performed by: resident/CUSTOMER SUPPLY COORDINATOR Preoxygenated with 100% O2: Yes C-spine Precautions [...] ETT 7.0 @21cm; Atraumatic; Suctioned; +ETCO2 after 10/06/[address] Lumbar Spine Wo Contrast (07/28/2017 1:24 PM)Only the most recent of2 resultswithin the time period is included. Specimen Performing Laboratory [facility] [address] [place] [address] Narrative EXAMINATION:CT LUMBAR SPINE WO CONTRAST CLINICAL [...] Mild degenerative changes of bilateral sacroiliac joints. [facility]-[id number] Procedure Note Interface, Radiology Results Incoming - 07/28/2017 2:38 PM DOCTOR OSTEOPATHIC EXAMINATION: CT LUMBAR SPINE WO CONTRAST CLINICAL [...] Mild degenerative changes of bilateral sacroiliac joints. [facility]-[id number] XR Lumbar Spine Ap Lateral Flexion And Extension (02/19/2017 9:41 AM) Specimen Performing Laboratory [facility] [address] [place] [address] Narrative EXAMINATION:XR LUMBAR SPINE AP LATERALFLEXION AND [...] prior study. Otherwise no significant interval change. [facility]-[id number] Procedure Note Hm Interface, Radiology Results Incoming [...] prior study. Otherwise no significant interval change. [facility]-[id number] Estimated GFR (02/05/2017 5:00 AM)Only the most [...] and Americans. Specimen Performing Laboratory Plasma specimen [facility] DEPARTMENT OF PATHOLOGY AND GENOMIC MEDICINE [address] [place] [address] CBC with platelet and differential (02/05/2017 5:00 [...] - 1.0 % Specimen Performing Laboratory Blood [facility] DEPARTMENT OF PATHOLOGY AND [facility] MEDICINE [address] [place] [id number] Basic metabolic panel (02/05/2017 5:00 AM)Only the [...] 10.2 mg/dL Specimen Performing Laboratory Plasma specimen [facility] DEPARTMENT OF PATHOLOGY AND GENOMIC MEDICINE [address] [place] [address] XR Chest 1 Vw Portable (02/02/2017 4:22 PM) Specimen Performing Laboratory [facility] [address] [place] [address] Narrative Examination:XR CHEST 1 VW PORTABLE Clinical [...] imaged bones are without apparent acute abnormalities. [facility]-[id number] Procedure Note Interface, Radiology Results Incoming - [...] imaged bones are without apparent acute abnormalities. [facility][id number] [place] > I Hour (02/02/2017 3:00 PM) Specimen Performing Laboratory [facility] [address] [place] [address] Narrative OR [place] 1 HOUR CLINICAL HISTORY: IMPRESSION: Fluoroscopy was provided. No radiologist present.Please see procedure report for discussion of procedure, findings and fluoroscopic time. [facility]-[id number] Procedure Note Interface, Radiology Results Incoming - 02/02/2017 4:51 PM CDT OR [place] 1 HOUR CLINICAL HISTORY: IMPRESSION: Fluoroscopy was provided. No radiologist present. Please see procedure report for discussion of procedure, findings and fluoroscopic time. [facility]-[id number] Urinalysis screen and microscopy, with reflex to [...] Specimen Performing Laboratory Urine - Urine, catheter [facility] DEPARTMENT OF PATHOLOGY AND GENOMIC MEDICINE [address] [place] [address] Gram stain (02/02/2017 8:33 AM) Component Value Ref Range Gram stain result Rare WBC's No organisms seen Comment: Specimen Information Specimen Source: Urine Specimen Site: See UA Specimen Performing Laboratory Urine [facility] DEPARTMENT OF PATHOLOGY AND GENOMIC MEDICINE [address] [place] [address] Urine culture (02/02/2017 8:33 AM) Component Value Ref Range Urine culture isolate Escherichia coli 10-5 cfu/ml (A) Comment: Specimen Information Specimen Source: Urine Specimen Site: See UA Specimen Performing Laboratory Urine [facility] DEPARTMENT OF PATHOLOGY AND GENOMIC MEDICINE [address] [place] [address] Organism Antibiotic Method Susceptibility Escherichia coli Ampicillin [...] mg/dL Comment: No Action Needed Meter ID: [id number] Distribution Operations Manager: Bill Harper Specimen Performing Laboratory [facility] DEPARTMENT OF PATHOLOGY AND GENOMIC MEDICINE [address] [place] [address] Type and screen (01/30/2017 3:06 PM) Component Value Ref Range ABO grouping A Rh type POS Antibody screen (gel) NEG Specimen Performing Laboratory Blood [facility] DEPARTMENT OF PATHOLOGY AND GENOMIC MEDICINE [address] [place] [address] after 10/06/2016 Insurance Payer Benefit Plan / Group Subscriber ID Type Phone Address MEDICARE MEDICARE PART A AND B xxxxxxxxxx Medicare [place], [place] [phone] [address]
[2017-10-07] MEDS ORDERED: NA CHLORIDE 0.9% 1,000 ML ONE (15:27)
[2017-10-07 16:06] LABS: Absolute Lymphocytes (CBC) 1.5 K/uL (0.7-4.9); Absolute Monocytes 0.2 K/uL (0.1-1.3); Absolute Neutrophil 2.4 K/uL (1.8-8.0); Basophils % 0.7 % (0-1.3); Eosinophils % 2.2 % (0-4.4); Hematocrit 40.2 % (36.0-45.0); Lymphocytes % 35.8 % (15.3-44.8); MCH 29.1 pg (27.0-35.0); MCV 85.7 fL (80-100); MPV 7.5 fL (7.6-11.3); Monocytes % 4.9 % (3.3-12.3); RBC Red Blood Cell Count 4.69 M/uL (3.86-4.86)
[2017-10-07 16:17] LABS: Potassium 3.3 mEq/L (3.6-5.0)
[2017-10-07 16:19] LABS: Albumin 4.9 g/dL (3.2-5.5); Bilirubin Total 0.9 mg/dL (0.3-1.2)
[2017-10-07 16:31] LABS: Urine Blood TRACE (NEG); Urine Glucose NEGATIVE (NEG); Urine Protein NEGATIVE (NEG); Urine Specific Gravity 1.015 (1.005-1.030); Urine pH 5.5 (5.0-7.0)
[2017-10-07 16:36] LABS: Bilirubin Direct 0.1 mg/dL (0-0.2); Protein, Total 7.9 g/dL (6.0-8.3)
[2017-10-07 16:38] LABS: Urine Bacteria NONE SEEN /HPF (<20); Urine Culture Reflex Order NOT NEEDED; Urine RBC <5 /HPF (NONE SEEN)
[2017-10-07] MEDS ORDERED: PROMETHAZINE 25 MG/ML VIAL ONE (16:55)
[2017-10-07] MEDS ORDERED: MORPHINE 4 MG/ML SYR ONE (16:56)
[2017-10-07] MEDS ORDERED: CIPROFLOXACIN 400mg IV 400 MG/200 ML BAG IV ONE (16:56)
--- NOTE | 2017-10-07 17:51 | ER ---
Nurse's Notes [facility] Name: Oneida Lea Age: 57 yrs Sex: Female : 1960 Arrival Date: 10/07/2017 Time: 14:52 Bed 26 Private MD: Kevon Gonsalez R Diagnosis: Essential (primary) hypertension;Lower abdominal pain, unspecified;Vomiting, unspecified Presentation: 10/07 15:01 Presenting complaint: Patient states: " I have a hx of diverticulosis. I have been ph having a flare up for about 3 weeks,. I came here on the 4th and they said that I only had gastroentiritis but I'm still not felling better," Pt reports L sided abdominal pain, N/V/D x 3 weeks, denies fever. Transition of care: patient was not received from another setting of care. Onset of symptoms was October 07, 2017. Care prior to arrival: None. 15:01 Method Of Arrival: Ambulatory ph 15:01 Acuity: CINTHYA 3 ph Historical: - Allergies: 15:05 Demerol; ph 15:05 PENICILLINS; ph 15:05 topical iodine; ph - Home Meds: 15:05 Cipro 500 mg Oral tab 1 tab 2 times per day [Active]; hydrocodone-acetaminophen 5-325 ph mg Oral tab 1 tab every 6 hours for Pain [Active]; losartan 100 mg Oral tab once daily [Active]; methocarbamol 750 mg Oral tab 1 tab twice a day [Active]; metronidazole 500 mg Oral tab 1 tab 3 times per day [Active]; Zofran (as hydrochloride) 4 mg Oral tab every 8 hours [Active]; zolpidem 10 mg Oral tab 1 tab once daily [Active]; - PMHx: 15:05 Anxiety; Chronic pain; Depression; Diverticulitis; High Cholesterol; Hypertension; ph - PSHx: 15:05 Hysterectomy; Cholecystectomy; Appendectomy; back surgery; spinal fusion; Tonsillectomy;ph - Immunization history:: Adult Immunizations up to date. - Social history:: Smoking status: Patient/guardian denies using tobacco. Screenin:07 Abuse screen: Denies threats or abuse. Denies injuries from another. Nutritional lk1 screening: No deficits noted. Tuberculosis screening: No symptoms or risk factors identified. Fall Risk None identified. Assessment: 15:45 General: Appears uncomfortable, Behavior is calm, cooperative, appropriate for age. lk1 Pain: Complains of pain in left lower quadrant Pain currently is 4 out of 10 on a pain scale. Neuro: Level of Consciousness is awake, alert, obeys commands, Oriented to person, place, time, situation. Cardiovascular: Heart tones S1 S2 present Capillary refill is brisk Patient's skin is warm and dry. Respiratory: Airway is patent Respiratory effort is even, unlabored, Respiratory pattern is regular, symmetrical, Breath sounds are clear bilaterally. GI: Abdomen is non-distended, obese, Bowel sounds present X 4 quads. Abdomen is tender to palpation in suprapubic area and left lower quadrant. GI: Reports diarrhea, intolerance of food, nausea, vomiting. : No signs and/or symptoms were reported regarding the genitourinary system. EENT: No signs and/or symptoms were reported regarding the EENT system. Derm: No signs and/or symptoms reported regarding the dermatologic system. Musculoskeletal: No signs and/or symptoms reported regarding the musculoskeletal system. Vital Signs: 15:04 BP 179 / 108; Pulse 116; Resp 24; Temp 98.3; Pulse Ox 97% on R/A; Weight 86.18 kg; ph Height 5 ft. 4 in. (162.56 cm); Pain 4/10; 16:15 BP 167 / 109; Pulse 95; Resp 22; Pulse Ox 99% on R/A; mh5 17:00 BP 163 / 109; Pulse 94; Resp 18; Temp 99(O); lk1 18:00 BP 157 / 107; Pulse 91; Resp 18; Pulse Ox 99% on R/A; lk1 15:04 Body Mass Index 32.61 (86.18 kg, 162.56 cm) ph ED Course: 14:52 Patient arrived in ED. as 14:52 Kevon Gonsalez MD is Private Physician. as 15:03 Triage completed. ph 15:05 Arm band placed on. ph 15:06 [facility] N[facility]C [facility]. snw 15:06 Tico Pereyra MD is Attending Physician. snw 15:25 Rani Soler, MAGGI is Primary Nurse. lk1 15:57 Amylase, Serum Sent. 5 15:57 Basic Metabolic Panel Sent. 5 15:57 CBC with Diff Sent. mh5 15:57 Creatinine for Radiology Sent. [facility] 15:57 Hepatic Function Sent. [facility] 15:57 Lipase Sent. [facility] 16:06 Urine collected: clean catch specimen, clear. [facility] 16:06 Urine Microscopic Only Sent. [facility] 16:07 Patient has correct armband on for positive identification. Bed in low position. Call lk1 light in reach. 16:14 Warm blanket given. Pulse ox on. NIBP on. [facility] 17:50 Kevon Gonsalez MD is Hospitalizing Provider. snw 18:40 No provider procedures requiring assistance completed. Patient admitted, IV remains in lk1 place. Administered Medications: 15:50 Drug: NS 0.9% 1000 ml Route: IV; Rate: 125 ml/hr; Site: right antecubital; lk1 18:30 Follow up: Response: No adverse reaction; IV Status: IV converted to saline lock; IV lk1 Intake: 300ml 16:50 Drug: morphine 4 mg Route: IVP; Site: right antecubital; lk1 17:20 Follow up: Response: No adverse reaction; Pain is decreased [facility] 16:50 Drug: Phenergan 6.25 mg Route: IVP; Site: right antecubital; lk1 17:20 Follow up: Response: No adverse reaction; Nausea is decreased [facility] 16:53 Drug: Ciprofloxacin 400 mg Volume: 200 ml; Route: IVPB; Infused Over: 60 mins; Site: lk1 right antecubital; Intake: 18:30 IV: 300ml; Total: 300ml. [facility] Outcome: 17:51 Decision to Hospitalize by Provider. snw 18:36 Patient left the ED. [facility] 18:40 Admitted to Med/surg accompanied by tech, via wheelchair, room 206, with chart, Report lk called to Karoline 18:40 Condition: good 18:40 Discharge instructions given to patient, family, Instructed on the need for admit, Demonstrated understanding of instructions. Signatures: Soila Neri, RETORT FIREMAN-C RETORT FIREMAN-CsnDiana Stanley Patricia, RN RN Rani Soler RN RN lk1 Yamile Bruce [facility]
--- NOTE | 2017-10-07 17:51 | EDPHYS ---
Physician Documentation [facility] Name: Oneida Lea Age: 57 yrs Sex: Female : 1960 Arrival Date: 10/07/2017 Time: 14:52 Bed 26 Private MD: Kevon Gonsalez R ED Physician Tico Pereyra HPI: 10/07 16:04 This 57 yrs old Female presents to ER via Ambulatory with complaints of snw Abdominal Pain, Nausea/Vomiting/Diarrhea. 16:04 The patient presents with abdominal pain in the left lower quadrant. Onset: The snw symptoms/episode began/occurred gradually, 1 week(s) ago. The symptoms do not radiate. Associated signs and symptoms: Pertinent positives: nausea, vomiting, and diarrhea, anorexia. The symptoms are described as constant, crampy. Severity of pain: At its worst the pain was severe. The patient has experienced a previous episode. The patient has been recently seen by a physician: The patient has been recently seen at the [facility] Emergency Department, for similar complaints was given a prescription for antibiotics, was given a prescription for pain medications, Ct of abd + for diverticulosis - for diverticulitis . Historical: - Allergies: 15:05 Demerol; ph 15:05 PENICILLINS; ph 15:05 topical iodine; ph - Home Meds: 15:05 Cipro 500 mg Oral tab 1 tab 2 times per day [Active]; hydrocodone-acetaminophen 5-325 ph mg Oral tab 1 tab every 6 hours for Pain [Active]; losartan 100 mg Oral tab once daily [Active]; methocarbamol 750 mg Oral tab 1 tab twice a day [Active]; metronidazole 500 mg Oral tab 1 tab 3 times per day [Active]; Zofran (as hydrochloride) 4 mg Oral tab every 8 hours [Active]; zolpidem 10 mg Oral tab 1 tab once daily [Active]; - PMHx: 15:05 Anxiety; Chronic pain; Depression; Diverticulitis; High Cholesterol; Hypertension; ph - PSHx: 15:05 Hysterectomy; Cholecystectomy; Appendectomy; back surgery; spinal fusion; Tonsillectomy;ph - Immunization history:: Adult Immunizations up to date. - Social history:: Smoking status: Patient/guardian denies using tobacco. ROS: 16:04 Constitutional: Negative for fever, chills, and weight loss, Eyes: Negative for injury, snw pain, redness, and discharge, ENT: Negative for injury, pain, and discharge, Neck: Negative for injury, pain, and swelling, Cardiovascular: Negative for chest pain, palpitations, and edema, Respiratory: Negative for shortness of breath, cough, wheezing, and pleuritic chest pain, Back: Negative for injury and pain, : Negative for injury, bleeding, discharge, and swelling, MS/Extremity: Negative for injury and deformity, Skin: Negative for injury, rash, and discoloration, Neuro: Negative for headache, weakness, numbness, tingling, and seizure. 16:04 Abdomen/GI: Positive for abdominal pain, nausea, vomiting, and diarrhea, abdominal cramps. Exam: 16:02 Head/Face: Normocephalic, atraumatic. Eyes: Pupils equal round and reactive to light, snw extra-ocular motions intact. Lids and lashes normal. Conjunctiva and sclera are non-icteric and not injected. Cornea within normal limits. Periorbital areas with no swelling, redness, or edema. ENT: Nares patent. No nasal discharge, no septal abnormalities noted. Tympanic membranes are normal and external auditory canals are clear. Oropharynx with no redness, swelling, or masses, exudates, or evidence of obstruction, uvula midline. Mucous membranes moist. Neck: Trachea midline, no thyromegaly or masses palpated, and no cervical lymphadenopathy. Supple, full range of motion without nuchal rigidity, or vertebral point tenderness. No Meningismus. Chest/axilla: Normal chest wall appearance and motion. Nontender with no deformity. No lesions are appreciated. 16:02 Respiratory: Lungs have equal breath sounds bilaterally, clear to auscultation and percussion. No rales, rhonchi or wheezes noted. No increased work of breathing, no retractions or nasal flaring. Abdomen/GI: Soft, tender, with normal bowel sounds. No distension or tympany. No guarding or rebound. + evidence of tenderness throughout left lower quad Back: No spinal tenderness. No costovertebral tenderness. Full range of motion. 16:02 MS/ Extremity: Pulses equal, no cyanosis. Neurovascular intact. Full, normal range of motion. Neuro: Awake and alert, GCS 15, oriented to person, place, time, and situation. Cranial nerves II-XII grossly intact. Motor strength 5/5 in all extremities. Sensory grossly intact. Cerebellar exam normal. Normal gait. Psych: Awake, alert, with orientation to person, place and time. Behavior, mood, and affect are within normal limits. 16:02 Constitutional: The patient appears alert, awake, pale, uncomfortable. 16:02 Cardiovascular: Rate: tachycardic, Rhythm: regular, Pulses: no pulse deficits are appreciated, Heart sounds: normal, Edema: is not appreciated. 16:02 Skin: Appearance: Color: pale, Temperature: normal temperature, Moisture: dry. Vital Signs: 15:04 BP 179 / 108; Pulse 116; Resp 24; Temp 98.3; Pulse Ox 97% on R/A; Weight 86.18 kg; ph Height 5 ft. 4 in. (162.56 cm); Pain 4/10; 16:15 BP 167 / 109; Pulse 95; Resp 22; Pulse Ox 99% on R/A; mh5 17:00 BP 163 / 109; Pulse 94; Resp 18; Temp 99(O); lk1 18:00 BP 157 / 107; Pulse 91; Resp 18; Pulse Ox 99% on R/A; lk1 15:04 Body Mass Index 32.61 (86.18 kg, 162.56 cm) ph MDM: 15:06 Patient medically screened. snw 16:11 Data reviewed: vital signs, nurses notes. Data interpreted: Pulse oximetry: on room air snw is 97 %. Interpretation: normal. Counseling: I had a detailed discussion with the patient and/or guardian regarding: the historical points, exam findings, and any diagnostic results supporting the discharge/admit diagnosis, the presence of at least one elevated blood pressure reading (>120/80) during this emergency department visit, lab results, radiology results, the need for further work-up and treatment in the hospital. 17:51 Physician consultation: Kevon Gonsalez MD was called at 17:51, was contacted at 17:51, snw regarding admission, to the medical/surgical unit. Obs, would like medications started, Hydralazine 10mg IV q4h prn SBP > 150. 10/07 15:08 Order name: Amylase, Serum; Complete Time: 16:41 snw 10/07 15:08 Order name: Basic Metabolic Panel; Complete Time: 16:41 snw 10/07 15:08 Order name: CBC with Diff; Complete Time: 16:15 10/07 15:08 Order name: Creatinine for Radiology; Complete Time: 16:22 10/07 15:08 Order name: Hepatic Function; Complete Time: 16:41 w 10/07 15:08 Order name: Lipase; Complete Time: 16:41 10/07 15:08 Order name: Urine Microscopic Only; Complete Time: 16:41 [facility] 10/07 15:08 Order name: Blood Culture Adult (2) w 10/07 16:10 Order name: Urine Dipstick--Ancillary (enter results); Complete Time: 16:32 ag 10/07 16:10 Order name: Urine --Ancillary (enter results); Complete Time: 16:32 ag 10/07 17:56 Order name: Basic Metabolic Panel EDMS 10/07 17:56 Order name: Basic Metabolic Panel EDMS 10/07 17:56 Order name: CBC with Automated Diff EDMS 10/07 17:56 Order name: CBC with Automated Diff EDMS 10/07 15:08 Order name: IV Saline Lock; Complete Time: 15:56 w 10/07 15:08 Order name: Labs collected and sent; Complete Time: 15:56 10/07 15:08 Order name: Urine Dipstick-Ancillary (obtain specimen); Complete Time: 16:01 10/07 15:08 Order name: NPO; Complete Time: 15:41 [facility] 10/07 17:56 Order name: NPO EDMS Administered Medications: 15:50 Drug: NS 0.9% 1000 ml Route: IV; Rate: 125 ml/hr; Site: right antecubital; lk1 18:30 Follow up: Response: No adverse reaction; IV Status: IV converted to saline lock; IV lk1 Intake: 300ml 16:50 Drug: morphine 4 mg Route: IVP; Site: right antecubital; lk1 17:20 Follow up: Response: No adverse reaction; Pain is decreased lk1 16:50 Drug: Phenergan 6.25 mg Route: IVP; Site: right antecubital; lk1 17:20 Follow up: Response: No adverse reaction; Nausea is decreased lk1 16:53 Drug: Ciprofloxacin 400 mg Volume: 200 ml; Route: IVPB; Infused Over: 60 mins; Site: lk right antecubital; Disposition: 10/07/17 17:51 Hospitalization ordered by Kevon Gonsalez for Observation. Preliminary diagnosis are Essential (primary) hypertension, Lower abdominal pain, unspecified, Vomiting, unspecified. - Bed requested for Telemetry/MedSurg (observation). - Status is Observation. lk1 - Condition is Stable. - Problem is an acute exacerbation. - Symptoms have worsened. UTI on Admission? No Addendum: 10/09/2017 07:37 Co-signature as Attending Physician, Tico Pereyra MD I agree with the assessment and w a plan of care. Signatures: Dispatcher [employer] Karo Eckert RN RN Soila Nava, INTAKE COORDINATOR-C INTAKE COORDINATOR-Csnw Marilin Carter, RN MAGGI Rani Soler RN RN [facility] Tico Pereyra MD MD or
[2017-10-07] MEDS: CIPROFLOXACIN 400mg IV 400 MG/200 ML BAG IV SCH (19:44)
[2017-10-07] MEDS: NA CHLORIDE 0.9% 1,000 ML IV SCH (20:27)
[2017-10-07] MEDS: ZOLPIDEM TARTRATE 10 MG TABLET PO SCH (21:55)
[2017-10-07] MEDS: ONDANSETRON 4 MG/2 ML VIAL IV PRN (22:43)
[2017-10-07] MEDS: MORPHINE 4 MG/ML SYR IV PRN (22:43)
[2017-10-08 00:23] VITALS: BMI 33.1
[2017-10-08] MEDS: NA CHLORIDE 0.9% 1,000 ML IV SCH ×4 (01:39→20:40)
[2017-10-08] MEDS: METRONIDAZOLE 500mg IVPB 500 MG/100 ML BAG IV SCH ×3 (01:39→17:25)
[2017-10-08] MEDS: ONDANSETRON 4 MG/2 ML VIAL IV PRN ×4 (04:41→23:41)
[2017-10-08] MEDS: MORPHINE 4 MG/ML SYR IV PRN ×4 (04:41→23:41)
[2017-10-08 05:40] LABS: Absolute Lymphocytes (CBC) 1.9 K/uL (0.7-4.9); Absolute Monocytes 0.3 K/uL (0.1-1.3); Absolute Neutrophil 2.5 K/uL (1.8-8.0); Basophils % 0.7 % (0-1.3); Eosinophils % 2.9 % (0-4.4); Hematocrit 35.4 % (36.0-45.0); Lymphocytes % 38.5 % (15.3-44.8); MCH 29.7 pg (27.0-35.0); MCV 84.9 fL (80-100); MPV 8.1 fL (7.6-11.3); Monocytes % 6.5 % (3.3-12.3); Potassium 3.2 mEq/L (3.6-5.0); RBC Red Blood Cell Count 4.17 M/uL (3.86-4.86)
[2017-10-08] MEDS: PANTOPRAZOLE 40MG TABLET PO SCH ×2 (06:49→21:43)
[2017-10-08] MEDS ORDERED: POTASSIUM 25 MEQ EFFERV TAB PO ONE (08:52)
[2017-10-08] MEDS: CIPROFLOXACIN 400mg IV 400 MG/200 ML BAG IV SCH ×2 (09:06→21:42)
[2017-10-08] MEDS: PARoxetine HCl 10 MG TAB PO SCH (09:06)
[2017-10-08] MEDS: CYCLOBENZAPRINE 10 MG TAB PO PRN ×2 (09:07→18:57)
[2017-10-08] MEDS: hydroCHLOROthiazide 25 MG TAB PO SCH (09:07)
[2017-10-08] MEDS: LOSARTAN POTASSIUM 50 MG TABLET PO SCH (09:07)
[2017-10-08] MEDS: VALSARTAN 160 MG TAB PO SCH (09:07)
[2017-10-08] MEDS: ZOLPIDEM TARTRATE 10 MG TABLET PO SCH (21:49)
[2017-10-08] MEDS: ACETAMINOPHEN 325 MG TABLET PO PRN (21:54)
[2017-10-09] MEDS: METRONIDAZOLE 500mg IVPB 500 MG/100 ML BAG IV SCH ×3 (01:02→17:32)
--- NOTE | 2017-10-09 02:28 | HP ---
Date of Admission: 10/07/2017 Reason For Admission: Abdominal pain, nausea, diarrhea. History Of Present Illness: A 57-year-old female was in the emergency room last week for lower abdom inal pain. She had CAT scan done. She had diverticulosis without any diverticulitis. The patient w as given oral antibiotics and sent home. She returned because of continued diarrhea and abdominal pa in. The patient's white count was normal. The patient is admitted. Past Medical History: Positive for history of diverticular disease of the colon. Other problems inc lude history of hypertension, anxiety, depression, hyperlipidemia. Past Surgical History: Positive for back surgery, appendectomy, gallbladder surgery, hysterectomy, t onsillectomy. Review of Systems: No history of chest pain, fever, chills, rigors. Physical Examination: General: Revealed a 57-year-old female, not in acute distress. Vital Signs: Normal. HEENT: Negative. Neck: Supple. JVD negative. Chest: Clear. Heart: Regular. Abdomen: Mild tenderness, left lower quadrant and left umbilical area. No palpable mass. Extremities: No edema. Laboratory Data: White count normal. Chem profile; potassium 3.3, AST 45, ALT 92, lipase normal. Assessment: 1.Lower abdominal pain. 2.On oral Cipro and Flagyl for acute diverticulitis based on clinical grounds. 3.Chronic anxiety and depression. 4.Hypertension. 5.Hyperlipidemia. 6.Multiple surgeries. Plan: It is not clear from the patient's presentation whether she has a manifestation of her anxiety or whether she has some illness that is not showing up on our CAT scan and blood work. She sees Dr. Valerio, who did upper and lower endoscopies on her. He will be reconsulted to see if . IGOR/MODL Voice ID: [id number]
[2017-10-09] MEDS: NA CHLORIDE 0.9% 1,000 ML IV SCH ×4 (03:48→23:20)
[2017-10-09] MEDS: MORPHINE 4 MG/ML SYR IV PRN ×3 (06:47→19:23)
[2017-10-09] MEDS: PANTOPRAZOLE 40MG TABLET PO SCH ×2 (06:48→21:17)
[2017-10-09] MEDS: ONDANSETRON 4 MG/2 ML VIAL IV PRN ×3 (06:48→19:23)
[2017-10-09] MEDS: CIPROFLOXACIN 400mg IV 400 MG/200 ML BAG IV SCH ×2 (10:13→21:17)
[2017-10-09] MEDS: PARoxetine HCl 10 MG TAB PO SCH (10:14)
[2017-10-09] MEDS: VALSARTAN 160 MG TAB PO SCH (10:14)
[2017-10-09] MEDS: LOSARTAN POTASSIUM 50 MG TABLET PO SCH (10:14)
[2017-10-09] MEDS: hydroCHLOROthiazide 25 MG TAB PO SCH (10:14)
[2017-10-09] MEDS: CYCLOBENZAPRINE 10 MG TAB PO PRN ×2 (10:15→21:16)
[2017-10-09] MEDS: ACETAMINOPHEN 325 MG TABLET PO PRN (17:13)
[2017-10-09] MEDS: ZOLPIDEM TARTRATE 10 MG TABLET PO SCH (21:17)
[2017-10-10] MEDS: METRONIDAZOLE 500mg IVPB 500 MG/100 ML BAG IV SCH ×2 (00:46→08:19)
[2017-10-10] MEDS: NA CHLORIDE 0.9% 1,000 ML IV SCH (05:20)
[2017-10-10] MEDS: PARoxetine HCl 10 MG TAB PO SCH (08:15)
[2017-10-10] MEDS: LOSARTAN POTASSIUM 50 MG TABLET PO SCH (08:16)
[2017-10-10] MEDS: VALSARTAN 160 MG TAB PO SCH (08:16)
[2017-10-10] MEDS: PANTOPRAZOLE 40MG TABLET PO SCH ×2 (08:16→21:02)
[2017-10-10] MEDS: hydroCHLOROthiazide 25 MG TAB PO SCH (08:16)
[2017-10-10] MEDS: MORPHINE 4 MG/ML SYR IV PRN ×2 (08:17→14:08)
[2017-10-10] MEDS: ONDANSETRON 4 MG/2 ML VIAL IV PRN ×3 (08:17→21:01)
[2017-10-10] MEDS: CIPROFLOXACIN 400mg IV 400 MG/200 ML BAG IV SCH (08:18)
--- NOTE | 2017-10-10 12:03 | PN ---
The patient yesterday had no fever and her diarrhea got better. She did not have any vomiting even t flex she had nausea. There are no specific recommendations from GI service. The patient is improvi ng. It is possible that the patient may have had infectious colitis. The patient in view of her res ponse was continued on the same antibiotics. IGOR/FANI Voice ID: [id number] Report ID: [id number]
[2017-10-10] MEDS: CIPROFLOXACIN HCL 500 MG TAB PO SCH ×2 (12:10→21:03)
[2017-10-10] MEDS: metroNIDAZOLE 500 MG TABLET PO SCH ×2 (12:10→21:02)
--- NOTE | 2017-10-10 12:20 | PN ---
Date of Progress Note: 10/10/2017 The patient is afebrile. She is ambulating in the room. She still has loose stools, however, she is tolerating the diet that was given to her. Today her IVs will be discontinued. She will be started on oral antibiotic and see whether she would tolerate. Her vital signs are stable without any fever . IGOR/FANI Voice ID: [id number] Report ID: [id number]
[2017-10-10] MEDS: ACETAMINOPHEN 325 MG TABLET PO PRN (12:47)
[2017-10-10] MEDS ORDERED: MORPHINE 2 MG/ML SYR IV PRN (19:43)
[2017-10-10] MEDS ORDERED: MORPHINE 4 MG/ML SYR ONE (20:56)
[2017-10-10] MEDS: ZOLPIDEM TARTRATE 10 MG TABLET PO SCH (21:02)
[2017-10-10 21:50] VITALS: O2SAT 99
[2017-10-10] MEDS: CYCLOBENZAPRINE 10 MG TAB PO PRN (22:17)
[2017-10-11] MEDS ORDERED: MORPHINE 4 MG/ML SYR IV PRN (07:21)
[2017-10-11] MEDS: PANTOPRAZOLE 40MG TABLET PO SCH (08:04)
[2017-10-11] MEDS: PARoxetine HCl 10 MG TAB PO SCH (08:04)
[2017-10-11] MEDS: CIPROFLOXACIN HCL 500 MG TAB PO SCH (08:04)
[2017-10-11] MEDS: VALSARTAN 160 MG TAB PO SCH (08:05)
[2017-10-11] MEDS: hydroCHLOROthiazide 25 MG TAB PO SCH (08:05)
[2017-10-11] MEDS: metroNIDAZOLE 500 MG TABLET PO SCH (08:05)
[2017-10-11 08:22] VITALS: TEMP 97.3
[2017-10-11 09:40] VITALS: BP 160/88
--- NOTE | 2017-10-14 08:49 | CON ---
Date of Consultation: 10/08/2017 Reason For Consultation: Abdominal pain, nausea, vomiting diarrhea. History Of Present Illness: Ms. Lea is a 57-year-old female, who got admitted to the hospital for 2 weeks suffering from abdominal pain, nausea and vomiting and diarrhea. According to her, upper abd ominal pain, nausea, vomiting started first. Abdominal pain eventually became diffuse throughout upp er and lower abdomen, became 10/10. As a result, she came to the hospital. The vomiting consists of ingested material and biliary material. The diarrhea is loose, watery, and is exacerbated by eating . She denies any history of travel, antibiotic use or change of any diet or eating any exotic food. Denies any hematemesis, melena, or hematochezia. After coming to the hospital she is feeling better . No further fever, chills although initially she felt chills. She does not know about fever althou gh. Past Medical History: Hypertension, otherwise in general healthy. Past Surgical History: Not related to above. Family History: Denies any gastrointestinal malignancy in the family. Social History: No alcohol or tobacco on a regular basis. Psychiatric History: None. Allergy: Reviewed in the chart. Medications: Reviewed in the chart. Review of Systems: Acute onset of illness (withdrawn). No anorexia. No fever, chills. Other than related to the illne ss itself GI: As elaborated above. Hematologic: Denies any history of jaundice, hepatitis, any other liver issues in the past. Pulmonary: No shortness of breath, cough, or expectoration. Cardiac: No palpitation or heart murmur. No orthopnea or dyspnea. Genitourinary: No active complaint. Neuropsychiatric: None. Neuroendocrine: None. Musculoskeletal: No problem. No joint swelling, no deformity. Dermatologic: No pruritus, no other skin lesion. Physical Examination: General: Young female, appears to be reasonably comfortable at this time. Hemodynamic respiratory p rofile within normal range. HEENT: Atraumatic, normocephalic. Oropharynx is clear. Neck: Supple. No lymphadenopathy. Trachea central in position. Chest: Clear to auscultation and percussion. Cardiovascular: Normal S1, S2. No S3, no S4. Abdomen: Soft, but diffuse, mild tenderness. Bowel sounds are excellent. No hepatomegaly. No sple nomegaly. No rebound tenderness. No mass palpable. No hepatomegaly. No splenomegaly. No ascites. No succussion splash. Extremities: Upper and lower extremities are normal, symmetrical. Muscle mass is not wasted. Dermatologic examination: Normal. Neurologic: Alert and oriented x3. Intact memory, mentation, and judgment. Can move all parts of e xtremities without any other problem. Diagnostic Data: Radiologic data reviewed, analyzed. Discussed with the patient. Impression/plan/recommendation: Ms. Lea is a 57-year-old female weak with nausea, vomiting, abdomi nal pain, which is diffuse; however, this is improving. Given above we will give her a trial of food . I will continue antibiotics as an outpatient for 2 weeks. Most likely, this could be infectious i n etiology; however, other conditions cannot be ruled out. She is a 57-year-old female. Once she to lerates diet further treatment could be done on an outpatient basis. However, I have discussed with her regarding GI endoscopies both upper and lower GI if needed. Discussion of complications included, but not limited to the possibility of bleeding, perforation, te ar, infection, sepsis, need for surgery, need for blood transfusion, anesthesia related problem. She has good understanding. e is agreeable. CURLY/FANI Voice ID: [id number] Report ID: [id number]
--- NOTE | 2017-10-26 11:43 | DS ---
Date of Discharge: 10/11/2017 Final Diagnoses: 1.Colitis. 2.Hypertension. 3.Hyperlipidemia. 4.Status post multiple surgeries. 5.Chronic anxiety and depression. Hospital Course: This patient was admitted through the emergency room because of lower abdominal adrian n. The patient had normal white count. However, because of her pain, she was admitted. The patient was already on oral Cipro and Flagyl. The patient after admission to the hospital was started on IV antibiotics. She received pain medication. The patient was seen by Dr. Kelsey, who felt that the pat ient may have had infectious colitis causing her pain as well as other symptoms. She was advised to continue oral antibiotic and then see them in the office and undergo endoscopy to see whether she has either infectious or noninfectious colitis or other pathology. At this point, the patient was disch arged with oral antibiotic and advised to follow up with Dr. Kelsey in the office. Laboratory: Please refer to the chart. IGOR/FANI Voice ID: [id number] Report ID: [id number]
== END 2017-10-11 12:10 | disposition home or self-care (01) | DRG 392 ==
LOC: ER 14:51 → ERHOLD 17:53 → 2ND 18:25 → OBSVTOIN 10-09 08:24
PROVIDERS: ADMIT Internal Medicine; ATTEND Internal Medicine
DX: A09 Infectious gastroenteritis and colitis, unspecified (principal); I10 Essential (primary) hypertension; F41.8 Other specified anxiety disorders; E78.5 Hyperlipidemia, unspecified; K57.90 Diverticulosis of intestine, part unspecified, without perforation or abscess without bleeding; Z88.0 Allergy status to penicillin
CPT/HCPCS: 36415; 80048; 80076; 81003; 81015; 81025; 82150; 83690; 85025; 87040; 87493; 96361; 96374; 96375; 99285; G0378; J0744; J2405; J2550; J7030

== ENCOUNTER 2018-11-12 10:54 | Emergency (ER) | payer OTHER ==
--- OUTSIDE RECORDS SUMMARY | 2018-11-12 10:57 | XMS REPORT | Clinical Summary ---
:1960 Author Organization [facility] Address [address] [place] [address] Care Team Providers Name Role Phone Kevon Wiggins MD Primary Care Provider Allergies Active Allergy Reactions Severity Noted Date Comments Meperidine GI Intolerance 01/30/2017 VOMITTING Iodine Rash Low 01/30/2017 Penicillin G Shortness Of Breath, Rash High 01/30/2017 Medications Medication Sig Dispensed Refills Start Date End Date Status PARoxetine (PAXIL) 40 MG Take 40 mg by 0 12/10/2016 Active tablet mouth daily. valsartan (DIOVAN) 160 Take 160 mg by 0 01/10/2017 Active MG tablet mouth daily. metoprolol tartrate Take 1 tablet by 0 12/10/2016 Active (LOPRESSOR) 100 mg mouth daily. tablet rOPINIRole (REQUIP) 0.5 Take 1 tablet by 0 12/10/2016 Active MG tablet mouth daily. HYDROcodone-acetaminophe Take 1 tablet by 0 01/12/2017 Active n (NORCO) 7.5-325 mg per mouth every 4 tablet (four) hours as needed. atorvastatin (LIPITOR) Take 1 tablet by 0 12/10/2016 Active 10 MG tablet mouth daily. zolpidem (AMBIEN) 10 mg Take 1 tablet by 0 01/12/2017 Active tablet mouth as needed. dicyclomine (BENTYL) 10 Take 10 mg by 0 Active MG capsule mouth 4 (four) times a day before meals and nightly. esomeprazole (NexIUM) 20 Take 20 mg by 0 Active MG capsule mouth daily before breakfast. methocarbamol Take 1 tablet 40 tablet 3 02/02/2017 Active (ROBAXIN-750) 750 MG every 6 hours as tablet needed for spasms Active Problems Problem Noted Date Lumbar degenerative disc disease 02/02/2017 Family History Medical History Relation Name Comments No Known Problems Father Diabetes Mother Relation Name Status Comments Father Mother Alive Social History Tobacco Use Types Packs/Day Years Used Date Former Smoker Quit: 2005 Smokeless Tobacco: Never Used Alcohol Use Drinks/Week oz/Week Comments No Sex Assigned at Date Recorded Not on file Job Start Date Occupation Industry Not on file Not on file Not on file Travel History Travel Start Travel End No recent travel history available. Last Filed Vital Signs Not on file Plan of Treatment Health Maintenance Due Date Last Done Comments CERVICAL CANCER SCREENING 1982 BREAST CANCER SCREENING 2011 COLON CANCER SCREENING 2011 SHINGLES VACCINES (#1) 2011 INFLUENZA VACCINE 01/27/2019 Implants Implanted Type Area Web Development Director Device Shelf Model / Serial Identifier Expiration / Lot Date Kit Bone Grft Lmbr Tprd 8ml Xxl Infuse - [id number] Human Tissue N/A: MEDTRONIC SPINAL 07/30/2018 [id number] / Implanted: Qty: 1 on 02/02/2017 by Raulito Hopkins MD Implants N/A AND BIOLOGICS / Chip Canc Allograft Leader [facility] 15cc 0.1-4mm - [id number] Human Tissue Anterio MUSCULOSKELETAL 08/02/2019 [id number] / Implanted: Qty: 1 on 02/02/2017 by Raulito Hopkins MD Implants r: TRANSPLANT / Spine, FOUNDATION [id number] Multi-L evel Spacer [id number] Prmtr Xlg 8deg 14mm - [id number] [id number] IMPLANT Anterio MEDTRONIC 08/01/2022 [id number] / Implanted: Qty: 1 on 02/02/2017 by Raulito Hopkins MD DEVICES r: SOFAMOR DANEK / Spine, [id number] Multi-L evel Spacer [id number] Prmtr Lg 12deg 12mm - [id number] [id number] IMPLANT Anterio MEDTRONIC 02/19/2024 [id number] / Implanted: Qty: 1 on 02/02/2017 by Raulito Hopkins MD DEVICES r: SOFAMOR DANEK / Spine, 47CR Multi-L evel Sovereign Fa Screw [id number] 5.5 X 25mm - [id number] IPM IMPLANT Anterio MEDTRONIC [id number] / Implanted: Qty: 2 on 02/02/2017 by Raulito Hopkins MD DEVICES r: SOFAMOR DANEK / Spine, VENDOR LOT NA Multi-L evel Set Screw [id number] 5.5 Ti Ns Brk Off - [id number] IPM IMPLANT Posteri MEDTRONIC [id number] / Implanted: Qty: 6 on 02/02/2017 by Raulito Hopkins MD DEVICES or: SOFAMOR DANEK / Spine, VENDOR LOT NA Multi-L evel Screw [id number] 5.5 Mas 6.5x50 Cc - [id number] IPM IMPLANT Posteri MEDTRONIC [id number] / Implanted: Qty: 4 on 02/02/2017 by Raulito Hopkins MD DEVICES or: SOFAMOR DANEK / Spine, VENDOR LOT NA Multi-L evel Screw [id number] 5.5 Mas 6.5x40 Cc - [id number] IPM IMPLANT Posteri MEDTRONIC [id number] / Implanted: Qty: 2 on 02/02/2017 by Raulito Hopkins MD DEVICES or: SOFAMOR DANEK / Spine, VENDOR LOT NA Sacral Blake [id number] 5.5 Ccm Ns Curv 50mm - [id number] IPM IMPLANT Posteri MEDTRONIC [id number] / Implanted: Qty: 2 on 02/02/2017 by Raulito Hopkins MD DEVICES or: SOFAMOR DANEK / Spine, VENDOR LOT NA Multi-L evel Washer Bone Grft Ti 17mm - [id number] Orthopedic Anterio MEDTRONIC SPINAL [id number] / Implanted: Qty: 2 on 02/02/2017 by Raulito Hopkins MD Trauma r: AND BIOLOGICS / Implants Spine, VENDOR LOT NA Multi-L evel Kit Selnt Fibrin [facility]umn [facility] 5ml Evicel - [id number] Surgical Posteri [facility] 04/28/2018 [id number] / Implanted: Qty: 1 on 02/02/2017 by Raulito Hopkins MD Implants; or: / Expanders; Spine, [id number] Extenders; Multi-L Surgical evel Wires Kit Selnt Fibrin Humn [facility] 5ml Evicel - [id number] Surgical Posteri ETHICON [facility] 04/28/2018 3905 / Implanted: Qty: 1 on 02/02/2017 by Raulito Hopkins MD Implants; or: / Expanders; Spine, [id number] Extenders; Multi-L Surgical evel Wires Results Not on fileafter 11/11/2017 Insurance Payer Benefit Plan / Group Subscriber ID Type Phone Address MEDICARE MEDICARE PART A AND B xxxxxxxxxx Medicare [place], [place] Advance Directives Patient has advance care planning documents on file. For more information, please contact:Guilherme Crowley[address] [place] [address]
[2018-11-12 12:09] LABS: Absolute Lymphocytes (CBC) 0.8 K/uL (0.7-4.9); Absolute Monocytes 0.4 K/uL (0.1-1.3); Absolute Neutrophil 8.1 K/uL (1.8-8.0); Basophils % 0.4 % (0-1.3); Eosinophils % 1.3 % (0-4.4); Hematocrit 38.7 % (36.0-45.0); Lymphocytes % 8.3 % (15.3-44.8); MPV 7.7 fL (7.6-11.3); Monocytes % 4.6 % (3.3-12.3); RBC Red Blood Cell Count 4.48 M/uL (3.86-4.86)
--- NOTE | 2018-11-12 12:23 | RAD REPORT ---
EXAM DESCRIPTION: CT - Stone Protocol - 11/12/2018 12:15 pm CLINICAL HISTORY: Persistent left lower quadrant pain, history of diverticulitis COMPARISON: CT September 2017 TECHNIQUE: Axial 5 mm thick images were obtained without oral or IV contrast. The [id number] span s the entirety of the system including uppermost abdomen and lung bases. All CT scans are performed using dose optimization technique as appropriate and may include automated exposure control or mA/KV adjustment according to patient size. FINDINGS: No hydronephrosis is present and no obstructing ureteral calculi. No suspicious renal mass es. Isodense masses and pyelonephritis are not excluded on a stone protocol CT scan. Urinary bladder is contracted. Uterus is absent. Ovaries are normal for age. No significant adrenal finding. Imaged portions of the liver, spleen and pancreas show no suspicious findings on non-contrast imaging . Cholecystectomy clips are present. No biliary tree dilatation. No gastric dilatation or wall thickening. A few mildly prominent small bowel loops are present. Ileus or mild enteritis are not excluded. Left-sided colonic diverticulosis present without diverticulitis . No hernia, mass or bulky lymphadenopathy noted. No free air, free fluid or inflammatory stranding. No significant bony abnormality. IMPRESSION: Left-sided colonic diverticulosis without diverticulitis. A few prominent small bowel loops are present. A minimal ileus or enteritis is not excluded. No hydronephrosis, obstructing calculus or acute finding. Isodense masses and pyelonephritis are not excluded on stone protocol technique.
[2018-11-12 12:28] LABS: ALT/SGPT 38 U/L (12-78); AST/SGOT 20 U/L (15-37); Albumin 4.1 g/dL (3.4-5.0); Alkaline Phosphatase 82 U/L (45-117); BUN Blood Urea Nitrogen 19 mg/dL (7-18); Bicarbonate 28 mmol/L (21-32); Bilirubin Direct < 0.1 mg/dL (0-0.2); Bilirubin Total 0.4 mg/dL (0.2-1.0); Glucose Level 112 mg/dL (74-106); Lipase 103 U/L (73-393); Potassium 3.7 mmol/L (3.5-5.1); Protein, Total 7.2 g/dL (6.4-8.2); Sodium Level 140 mmol/L (136-145)
[2018-11-12 12:30] LABS: Urine Bacteria <20 /HPF (<20); Urine Culture Reflex Order NOT NEEDED; Urine Mucus 1+ /HPF (NONE SEEN); Urine RBC <5 /HPF (NONE SEEN)
--- NOTE | 2018-11-12 12:49 | EDPHYS ---
Physician Documentation [facility] Name: Oneida Lea Age: 58 yrs Sex: Female : 1960 Arrival Date: 11/12/2018 Time: 10:55 Bed 19 Private MD: ED Physician Matt Harris HPI: 11/12 12:43 This 58 yrs old Female presents to ER via Ambulatory with complaints of gs Diverticulosis. 12:43 The patient presents with abdominal pain in the left lower quadrant. Onset: The gs symptoms/episode began/occurred 1 week(s) ago. The symptoms do not radiate. Associated signs and symptoms: Pertinent negatives: fever, vomiting. The symptoms are described as crampy. Modifying factors: The symptoms are alleviated by nothing, the symptoms are aggravated by nothing. Severity of pain: At its worst the pain was moderate in the emergency department the pain is unchanged. The patient has experienced similar episodes in the past, multiple times. The patient has been recently seen by a physician: a district wire chief, with similar presenting complaints. Historical: - Allergies: 11:05 Demerol; ss 11:05 PENICILLINS; ss 11:05 topical iodine; ss - PMHx: 11:05 Anxiety; Chronic pain; Depression; Diverticulitis; High Cholesterol; Hypertension; ss - PSHx: 11:05 Hysterectomy; Cholecystectomy; Appendectomy; back surgery; spinal fusion; Tonsillectomy;ss - Immunization history:: Adult Immunizations up to date. - Social history:: Smoking status: Patient/guardian denies using tobacco. - Ebola Screening: : Patient denies exposure to infectious person Patient denies travel to an Ebola-affected area in the 21 days before illness onset. ROS: 12:43 All other systems are negative. gs Exam: 12:43 Head/Face: Normocephalic, atraumatic. Eyes: Pupils equal round and reactive to light, gs extra-ocular motions intact. Lids and lashes normal. Conjunctiva and sclera are non-icteric and not injected. Cornea within normal limits. Periorbital areas with no swelling, redness, or edema. ENT: Nares patent. No nasal discharge, no septal abnormalities noted. Tympanic membranes are normal and external auditory canals are clear. Oropharynx with no redness, swelling, or masses, exudates, or evidence of obstruction, uvula midline. Mucous membranes moist. Neck: Trachea midline, no thyromegaly or masses palpated, and no cervical lymphadenopathy. Supple, full range of motion without nuchal rigidity, or vertebral point tenderness. No Meningismus. Chest/axilla: Normal chest wall appearance and motion. Nontender with no deformity. No lesions are appreciated. Cardiovascular: Regular rate and rhythm with a normal S1 and S2. No gallops, murmurs, or rubs. Normal PMI, no JVD. No pulse deficits. Respiratory: Lungs have equal breath sounds bilaterally, clear to auscultation and percussion. No rales, rhonchi or wheezes noted. No increased work of breathing, no retractions or nasal flaring. Back: No spinal tenderness. No costovertebral tenderness. Full range of motion. Skin: Warm, dry with normal turgor. Normal color with no rashes, no lesions, and no evidence of cellulitis. MS/ Extremity: Pulses equal, no cyanosis. Neurovascular intact. Full, normal range of motion. Neuro: Awake and alert, GCS 15, oriented to person, place, time, and situation. Cranial nerves II-XII grossly intact. Motor strength 5/5 in all extremities. Sensory grossly intact. Cerebellar exam normal. Normal gait. 12:43 Constitutional: The patient appears alert, awake. 12:43 Abdomen/GI: Palpation: mild abdominal tenderness, moderate abdominal tenderness, rebound tenderness, is not appreciated. Vital Signs: 11:05 BP 137 / 87; Pulse 95; Resp 16; Temp 98.1(TE); Pulse Ox 97% on R/A; Weight 90.72 kg; ss Height 5 ft. 4 in. (162.56 cm); Pain 6/10; 12:50 BP 129 / 75; Pulse 78; Resp 16 S; Pulse Ox 97% on R/A; aa5 11:05 Body Mass Index 34.33 (90.72 kg, 162.56 cm) ss MDM: 11:49 Patient medically screened. gs 12:43 Differential diagnosis: bowel obstruction, diverticulitis, gastritis, non-specific abd gs pain. Data reviewed: vital signs, nurses notes, lab test result(s), radiologic studies. Counseling: I had a detailed discussion with the patient and/or guardian regarding: the historical points, exam findings, and any diagnostic results supporting the discharge/admit diagnosis, lab results, radiology results, the need for outpatient follow up, a district wire chief. Response to treatment: the patient's symptoms have markedly improved after treatment, and as a result, I will discharge patient. 11/12 11:43 Order name: Basic Metabolic Panel; Complete Time: 12:42 11/12 11:43 Order name: CBC with Diff; Complete Time: 12:42 11/12 11:43 Order name: Hepatic Function; Complete Time: 12:42 11/12 11:43 Order name: Lipase; Complete Time: 12:42 11/12 11:43 Order name: Urine Microscopic Only; Complete Time: 12:42 11/12 12:18 Order name: Urine Dipstick--Ancillary (enter results) eb 11/12 11:43 Order name: IV Saline Lock; Complete Time: 12:15 11/12 11:43 Order name: Labs collected and sent; Complete Time: 12:15 11/12 11:43 Order name: Urine Dipstick-Ancillary (obtain specimen); Complete Time: 12:15 11/12 11:43 Order name: CT Stone Protocol; Complete Time: 12:42 gs Administered Medications: No medications were administered Disposition: 11/12/18 12:48 Discharged to Home. Impression: Lower abdominal pain, unspecified, Diverticular disease of intestine. - Condition is Stable. - Discharge Instructions: Abdominal Pain, Adult, Diverticulosis. - Medication Reconciliation Form, Thank You Letter, Antibiotic Education, Prescription Opioid Use form. - Follow up: Private Physician; When: 2 - 3 days; Reason: Re-evaluation by your physician. Signatures: Dis[facility] Hazel Agrawal RN RN aa5 Mary Jane Broussard RN RN ss Matt Harris MD MD Corrections: (The following items were deleted from the chart) 13:15 12:48 11/12/2018 12:48 Discharged to Home. Impression: Lower abdominal pain, aa5 unspecified; Diverticular disease of intestine. Condition is Stable. Forms are Medication Reconciliation Form, Thank You Letter, Antibiotic Education, Prescription Opioid Use. Follow up: Private Physician; When: 2 - 3 days; Reason: Re-evaluation by your physician.
--- NOTE | 2018-11-12 12:49 | ER ---
Nurse's Notes [facility] Name: Oneida Lea Age: 58 yrs Sex: Female : 1960 Arrival Date: 11/12/2018 Time: 10:55 Bed 19 Private MD: Diagnosis: Lower abdominal pain, unspecified;Diverticular disease of intestine Presentation: 11/12 11:03 Presenting complaint: Patient states: N/V/D and LLQ tenderness x 1 week. Pt believes ss this is a diverticulitis flare up as she has had them before. Transition of care: patient was not received from another setting of care. Onset of symptoms was November 05, 2018. Risk Assessment: Do you want to hurt yourself or someone else? Patient reports no desire to harm self or others. Initial Sepsis Screen: Does the patient meet any 2 criteria? HR > 90 bpm. Does the patient have a suspected source of infection? No. Patient's initial sepsis screen is negative. Care prior to arrival: None. 11:03 Method Of Arrival: Ambulatory ss 11:03 Acuity: CINTHYA 3 ss Historical: - Allergies: 11:05 Demerol; ss 11:05 PENICILLINS; ss 11:05 topical iodine; ss - PMHx: 11:05 Anxiety; Chronic pain; Depression; Diverticulitis; High Cholesterol; Hypertension; ss - PSHx: 11:05 Hysterectomy; Cholecystectomy; Appendectomy; back surgery; spinal fusion; Tonsillectomy;ss - Immunization history:: Adult Immunizations up to date. - Social history:: Smoking status: Patient/guardian denies using tobacco. - Ebola Screening: : Patient denies exposure to infectious person Patient denies travel to an Ebola-affected area in the 21 days before illness onset. Screenin:00 Abuse screen: Denies threats or abuse. Nutritional screening: No deficits noted. aa5 Tuberculosis screening: No symptoms or risk factors identified. Fall Risk None identified. Assessment: 12:00 General: Appears comfortable, Behavior is calm, cooperative. Pain: Complains of pain in aa5 left lower quadrant Pain does not radiate. Pain currently is 6 out of 10 on a pain scale. Quality of pain is described as sharp, Pain began 1 week ago Is intermittent, Aggravated by increased activity, repositioning. Neuro: Level of Consciousness is awake, alert, obeys commands, Oriented to person, place, time, situation. Cardiovascular: Heart tones S1 S2 present Rhythm is regular. Respiratory: Airway is patent Respiratory effort is even, unlabored, Respiratory pattern is regular, symmetrical. GI: Abdomen is round Bowel sounds present X 4 quads. Abd is soft X 4 quads Abdomen is tender to palpation in left lower quadrant Reports diarrhea, nausea, vomiting. : Denies burning with urination, inability to void, urinary frequency, urgency. EENT: No signs and/or symptoms were reported regarding the EENT system. Derm: Skin is pink, warm \T\ dry. Musculoskeletal: Range of motion: intact in all extremities. 13:12 Reassessment: Patient is alert, oriented x 3, equal unlabored respirations, skin aa5 warm/dry/pink. Vital Signs: 11:05 BP 137 / 87; Pulse 95; Resp 16; Temp 98.1(TE); Pulse Ox 97% on R/A; Weight 90.72 kg; ss Height 5 ft. 4 in. (162.56 cm); Pain 6/10; 12:50 BP 129 / 75; Pulse 78; Resp 16 S; Pulse Ox 97% on R/A; aa5 11:05 Body Mass Index 34.33 (90.72 kg, 162.56 cm) ss ED Course: 10:55 Patient arrived in ED. as 11:04 Triage completed. ss 11:05 Arm band placed on left wrist. ss 11:35 Matt Harris MD is Attending Physician. gs 11:43 Hazel Agrawal, RN is Primary Nurse. aa5 12:00 Patient has correct armband on for positive identification. Placed in gown. Bed in low aa5 position. Call light in reach. Side rails up X2. 12:00 Initial lab(s) drawn, by id, sent to lab. Inserted saline lock: 20 gauge in right aa5 forearm, using aseptic technique. Blood collected. 12:07 Urine collected: clean catch specimen, clear. aa5 12:15 CT Stone Protocol In Process Unspecified. EDMS 13:00 No provider procedures requiring assistance completed. aa5 13:12 IV discontinued, intact, bleeding controlled, No redness/swelling at site. Pressure aa5 dressing applied. Administered Medications: No medications were administered Outcome: 12:48 Discharge ordered by . gs 13:12 Discharged to home ambulatory, with family. aa5 13:12 Condition: stable 13:12 Discharge instructions given to patient, Instructed on discharge instructions, follow up and referral plans. Demonstrated understanding of instructions, follow-up care, Pt was instructed by Dr. Harris to continue taking antibiotics prescribed by PCP 13:15 Patient left the ED. aa5 Signatures: Dispatcher [employer] Diana Lee Audri, RN RN aa5 Mary Jane Broussard RN RN ss Starr, Gregory, MD MD
[2018-11-12 13:22] LABS: Urine Blood 1+ (NEG); Urine Glucose NEGATIVE (NEG); Urine Protein NEGATIVE (NEG); Urine pH 5.5 (5.0-7.0)
[2018-11-12 14:32] VITALS: TEMP 98.1; O2SAT 97
[2018-11-12 14:34] VITALS: BP 129/75
== END 2018-11-12 13:15 | disposition home or self-care (01) ==
LOC: ER 10:54
DX: K57.90 Diverticulosis of intestine, part unspecified, without perforation or abscess without bleeding (principal); I10 Essential (primary) hypertension; Z88.0 Allergy status to penicillin; Z88.5 Allergy status to narcotic agent; Z91.048 Other nonmedicinal substance allergy status
CPT/HCPCS: 36415; 74176; 76377; 80048; 80076; 81003; 81015; 83690; 85025; 99283

== ENCOUNTER 2018-11-25 14:27 | Emergency (ER) | payer OTHER ==
[2018-11-25] MEDS ORDERED: ACETAMINOPHEN 500 MG TAB ONE ×2 (15:43→15:54)
--- OUTSIDE RECORDS SUMMARY | 2018-11-25 16:01 | XMS REPORT | Clinical Summary ---
:1960 Author Organization [facility] Address [address] [place] [address] Care Team Providers Name Role Phone Kevon [...] Health Maintenance Due Date Last Done Comments BREAST CANCER SCREENING 2011 COLON CANCER SCREENING 2011 SHINGLES VACCINES (#1) 2011 INFLUENZA VACCINE 01/27/2019 Implants Implanted Type Area Repairer Switchgear Device Shelf Model / Serial Identifier Expiration / Lot Date Kit Bone Grft Lmbr Tprd 8ml Xxl Infuse - [id number] Human Tissue N/A: MEDTRONIC SPINAL 07/30/2018 [id number] / Implanted: Qty: 1 on 02/02/2017 by Raulito Hopkins MD Implants N/A AND BIOLOGICS / Chip Canc Allograft Leader Crs 15cc 0.1-4mm - [id number] Human Tissue Anterio MUSCULOSKELETAL 08/02/2019 [id number] / Implanted: Qty: 1 on 02/02/2017 by Raulito Hopkins MD Implants r: TRANSPLANT / Spine, FOUNDATION [id number] Multi-L evel Spacer [id number] Prmtr Xlg 8deg 14mm - [id number] IMPLANT Anterio MEDTRONIC 08/01/2022 [id number] / Implanted: Qty: 1 on 02/02/2017 by Raulito Hopkins MD DEVICES r: SOFAMOR DANEK / Spine, [id number] Multi-L evel Spacer [id number] Prmtr Lg 12deg 12mm - [id number] [id number] IMPLANT Anterio MEDTRONIC 02/19/2024 [id number] / Implanted: Qty: 1 on 02/02/2017 by Raulito Hopkins MD DEVICES r: SOFAMOR DANEK / Spine, 47CR Multi-L evel Sovereign Fa Screw [id number] 5.5 X 25mm - [id number] [id number] IMPLANT Anterio MEDTRON[employer] [id number] / Implanted: Qty: 2 on 02/02/2017 by Raulito Hopkins MD DEVICES r: SOFAMOR DANEK / Spine, VENDOR LOT NA Multi-L evel Set Screw [id number] 5.5 Ti Ns Brk Off - [id number] [id number] IMPLANT Posteri MEDTRON[employer] [id number] / Implanted: Qty: 6 on 02/02/2017 by Raulito Hopkins MD DEVICES or: SOFAMOR DANEK / Spine, VENDOR LOT NA Multi-L evel Screw [id number] 5.5 Mas 6.5x50 Cc - [id number] IMPLANT Posteri MEDTR[employer] [id number] / Implanted: Qty: 4 on 02/02/2017 by Raulito Hopkins MD DEVICES or: SOFAMOR DANEK / Spine, VENDOR LOT NA Multi-L evel Screw [id number] 5.5 Mas 6.5x40 Cc - [id number] IMPLANT Posteri [employer]TR[employer] [id number] / Implanted: Qty: 2 on 02/02/2017 by Raulito Hopkins MD DEVICES or: SOFAMOR DANEK / Spine, VENDOR LOT NA Sacral Blake [id number] 5.5 Ccm Ns Curv 50mm - [id number] IPM IMPLANT Posteri MEDTR[employer] [id number] / Implanted: Qty: 2 on 02/02/2017 by Raulito Hopkins MD DEVICES or: SOFAMOR DANEK / Spine, VENDOR LOT NA Multi-L evel Washer Bone Grft Ti 17mm - [id number] Orthopedic Anterio MEDTRONIC SPINAL [id number] / Implanted: Qty: 2 on 02/02/2017 by Raulito Hopkins MD Trauma r: AND BIOLOGICS / Implants Spine, VENDOR LOT NA Multi-L evel Kit Selnt Fibrin Humn [facility] 5ml Evicel - [id number] Surgical Posteri [facility] 04/28/2018 3905 / Implanted: Qty: 1 on 02/02/2017 by Raulito Hopkins MD Implants; or: / Expanders; Spine, [id number] Extenders; Multi-L Surgical evel Wires Kit Selnt Fibrin Humn [facility] 5ml Evicel - [id number] Surgical Posteri ETHICON - 04/28/2018 3905 / Implanted: Qty: 1 on 02/02/2017 by Raulito Hopkins MD Implants; or: / Expanders; Spine, [id number] Extenders; Multi-L Surgical evel Wires Results Not on fileafter 11/24/2017 Insurance Payer Benefit Plan / Subscriber ID Effective Dates Phone Address Type Group MEDICARE MEDICARE PART A xxxxxxxxxx 2005-Present [place], [place] Medicare AND B Advance Directives Patient has advance care planning documents on file. For more information, please contact:Guilherme Crowley[address] [place] [address]
--- NOTE | 2018-11-25 17:16 | RAD REPORT ---
EXAM DESCRIPTION: CT - CTHCSPWOC - 11/25/2018 4:10 pm CLINICAL HISTORY: Trauma, head and neck injury. fall and hit head, headache COMPARISON: CT HEAD CSPINE MPR WO CONTRAST dated 06/14/2015 TECHNIQUE: Axial 5 mm thick images of the head were obtained. Axial 2 mm thick images of the cervical spine were obtained with sagittal and coronal reconstruction images generated and reviewed. All CT scans are performed using dose optimization technique as appropriate and may include automated exposure control or mA/KV adjustment according to patient size. FINDINGS: CT HEAD WITHOUT CONTRAST: No acute hemorrhage, hydrocephalus or extra-axial collection is identified.No areas of brain edema or midline shift. The paranasal sinuses and mastoids are clear.The calvarium is intact. CT CERVICAL SPINE WITHOUT CONTRAST: No fracture or subluxation.Facet hypertrophy is present at the upper cervical levels.No prevertebral soft tissues swelling is identified. Carotid atherosclerosis. IMPRESSION: No acute intracranial or cervical spine findings. Upper cervical spondylosis.
--- NOTE | 2018-11-25 17:20 | RAD REPORT ---
EXAM DESCRIPTION: RAD - Pelvis - 11/25/2018 3:34 pm CLINICAL HISTORY: fall at home Fall, trauma, right hip pain COMPARISON: None FINDINGS: AP pelvis and right hip, multiple projections are submitted. No acute fracture or dislocation seen. No radiographic evidence of AVN.
--- NOTE | 2018-11-25 17:27 | ER ---
Nurse's Notes [facility] Name: Oneida Lea Age: 58 yrs Sex: Female : 1960 Arrival Date: 11/25/2018 Time: 14:31 Bed 5 Private MD: Diagnosis: Fall on same level from slipping, tripping and stumbling;Pain in right shoulder-from fall;Pain in right hip-from fall Presentation: 11/25 14:32 Presenting complaint: EMS states: pt fell from standing position, hitting forehead on a sg solid wood dresser, and hitting right shoulder on the ground, complains of having right knee pain as well, pt has a hx of chronic back pain. Transition of care: patient was not received from another setting of care. Mechanism of Injury: The problem was sustained at home, resulted from a fall, from a standing position. Risk Assessment: Do you want to hurt yourself or someone else? Patient reports no desire to harm self or others. Initial Sepsis Screen: Does the patient meet any 2 criteria? No. Patient's initial sepsis screen is negative. Does the patient have a suspected source of infection? No. Patient's initial sepsis screen is negative. Care prior to arrival: None. 14:32 Method Of Arrival: Ambulatory 14:32 Acuity: CINTHYA 4 sg 14:35 Risk considerations:. Onset of symptoms was November 25, 2018. tw2 Triage Assessment: 14:35 General: Appears in no apparent distress. Behavior is calm, cooperative, appropriate tw2 for age. Pain: Denies pain. Neuro: Level of Consciousness is awake, alert, obeys commands, Oriented to person, place, time, situation, Reports. Cardiovascular: Patient's skin is warm and dry. Respiratory: Airway is patent Respiratory effort is even, unlabored, Respiratory pattern is regular, symmetrical, Breath sounds are clear bilaterally. GI: No signs and/or symptoms were reported involving the gastrointestinal system. : No signs and/or symptoms were reported regarding the genitourinary system. Derm: No signs and/or symptoms reported regarding the dermatologic system. Musculoskeletal: Reports pain in right shoulder and right arm. Historical: - Allergies: 14:36 Demerol; sg 14:36 PENICILLINS; sg 14:36 topical iodine; sg 18:02 meperidine HCl; tw2 - Home Meds: 18:02 hydrocodone-acetaminophen 5-325 mg Oral tab 1 tab every 6 hours for Pain [Active]; tw2 losartan 100 mg Oral tab once daily [Active]; methocarbamol 750 mg Oral tab 1 tab twice a day [Active]; metronidazole 500 mg Oral tab 1 tab 3 times per day [Active]; Zofran (as hydrochloride) 4 mg Oral tab every 8 hours [Active]; zolpidem 10 mg Oral tab 1 tab once daily [Active]; - PMHx: 14:36 Anxiety; Chronic pain; Depression; Diverticulitis; High Cholesterol; Hypertension; sg - PSHx: 14:36 Hysterectomy; Cholecystectomy; Appendectomy; back surgery; spinal fusion; Tonsillectomy;sg - Immunization history:: Adult Immunizations up to date. - Social history:: Smoking status: . - Ebola Screening: : Patient negative for fever greater than or equal to 101.5 degrees Fahrenheit, and additional compatible Ebola Virus Disease symptoms Patient denies exposure to infectious person Patient denies travel to an Ebola-affected area in the 21 days before illness onset No symptoms or risks identified at this time. Screenin:25 Abuse screen: Denies threats or abuse. Nutritional screening: No deficits noted. tw2 Tuberculosis screening: No symptoms or risk factors identified. Fall Risk None identified. Assessment: 15:50 Reassessment: Patient appears in no apparent distress at this time. No changes from tw2 previously documented assessment. Patient and/or family updated on plan of care and expected duration. Pain level reassessed. Patient is alert, oriented x 3, equal unlabored respirations, skin warm/dry/pink. 17:38 Reassessment: Patient appears in no apparent distress at this time. No changes from tw2 previously documented assessment. Patient and/or family updated on plan of care and expected duration. Pain level reassessed. Vital Signs: 14:36 BP 176 / 96; Pulse 69; Resp 17; Temp 97.6; Pulse Ox 98% on R/A; Pain 10/10; sg 15:50 BP 144 / 75; Pulse 63; Resp 18; Pulse Ox 99% on R/A; tw2 17:38 BP 138 / 81; Pulse 70; Resp 17; Pulse Ox 98% on R/A; tw2 [place] Coma Score: 14:32 Eye Response: spontaneous(4). Verbal Response: oriented(5). Motor Response: obeys sg commands(6). Total: 15. ED Course: 14:31 Patient arrived in ED. sg 14:32 Preston Harrison PA is PHCP. cp 14:32 Francisco Enriquez MD is Attending Physician. cp 14:32 Arm band placed on. sg 14:32 Bed in low position. Call light in reach. Side rails up X2. environmental monitoring specialist on. Pulse tw2 ox on. NIBP on. 14:35 Triage completed. sg 15:25 Meredith Solis, RN is Primary Nurse. tw2 15:35 XRAY Shoulder RIGHT 2 view In Process Unspecified. EDMS 15:35 XRAY Pelvis In Process Unspecified. EDMS 15:35 XRAY Hip RIGHT 2 view In Process Unspecified. EDMS 16:11 CT Head C Spine In Process Unspecified. EDMS 16:11 CT completed. Patient tolerated procedure well. Patient moved to CT via wheelchair. nj Patient moved back from CT. 17:38 No provider procedures requiring assistance completed. Patient did not have IV access tw2 during this emergency room visit. Administered Medications: 15:38 Drug: Tylenol 1000 mg Route: PO; dm5 16:33 Follow up: Response: No adverse reaction tw2 Outcome: 17:26 Discharge ordered by MD. cp 17:38 Discharged to home via wheelchair, with family. tw2 17:38 Condition: stable 17:38 Discharge instructions given to patient, Instructed on discharge instructions, follow up and referral plans. Demonstrated understanding of instructions, follow-up care. 17:39 Patient left the ED. tw2 Signatures: Dispatcher [employer] Lela Joel RN MAGGI dm5 Erik Samuels RN RN Preston Harrison PA PA Meredith Solis, MAGGI RN tw2 Loi Ponce
--- NOTE | 2018-11-25 17:27 | EDPHYS ---
Physician Documentation [facility] Name: Oneida Lea Age: 58 yrs Sex: Female : 1960 Arrival Date: 11/25/2018 Time: 14:31 Bed 5 Private MD: ED Physician Francisco Enriquez HPI: 11/25 15:15 This 58 yrs old Female presents to ER via Ambulatory with complaints of cp Shoulder Pain, Head Injury-Adult. 15:15 Details of fall: The patient fell from an upright position, while standing. cp 15:15 Onset: The symptoms/episode began/occurred this morning. cp 15:15 Patient reports she was standing w/o walker when she lost her balance and fell striking cp head against dresser and right shoulder and right hip against floor. Patient denies LOC but reports she came close. Historical: - Allergies: 14:36 Demerol; sg 14:36 PENICILLINS; sg 14:36 topical iodine; sg 18:02 meperidine HCl; tw2 - Home Meds: 18:02 hydrocodone-acetaminophen 5-325 mg Oral tab 1 tab every 6 hours for Pain [Active]; tw2 losartan 100 mg Oral tab once daily [Active]; methocarbamol 750 mg Oral tab 1 tab twice a day [Active]; metronidazole 500 mg Oral tab 1 tab 3 times per day [Active]; Zofran (as hydrochloride) 4 mg Oral tab every 8 hours [Active]; zolpidem 10 mg Oral tab 1 tab once daily [Active]; - PMHx: 14:36 Anxiety; Chronic pain; Depression; Diverticulitis; High Cholesterol; Hypertension; sg - PSHx: 14:36 Hysterectomy; Cholecystectomy; Appendectomy; back surgery; spinal fusion; Tonsillectomy;sg - Immunization history:: Adult Immunizations up to date. - Social history:: Smoking status: . - Ebola Screening: : Patient negative for fever greater than or equal to 101.5 degrees Fahrenheit, and additional compatible Ebola Virus Disease symptoms Patient denies exposure to infectious person Patient denies travel to an Ebola-affected area in the 21 days before illness onset No symptoms or risks identified at this time. ROS: 15:25 Constitutional: Negative for body aches, chills, fever, poor PO intake. cp 15:25 Eyes: Negative for injury, pain, redness, and discharge. cp 15:25 ENT: Negative for drainage from ear(s), ear pain, sore throat, difficulty swallowing, difficulty handling secretions. 15:25 Cardiovascular: Negative for chest pain, palpitations. 15:25 Respiratory: Negative for cough, shortness of breath, wheezing. 15:25 Abdomen/GI: Negative for abdominal pain, nausea, vomiting, and diarrhea. 15:25 Back: Negative for pain at rest, pain with movement, radiated pain. 15:25 : Negative for urinary symptoms. 15:25 MS/extremity: Positive for pain, of the right shoulder and right hip and right knee, Negative for deformity. 15:25 Neuro: Positive for headache, Negative for altered mental status, loss of consciousness, weakness. 15:25 All other systems are negative. Exam: 15:35 Constitutional: The patient appears in no acute distress, alert, awake, cp non-diaphoretic, non-toxic, well developed, well nourished. 15:35 Head/Face: Normocephalic, atraumatic. cp 15:35 Eyes: Periorbital structures: appear normal, Pupils: equal, round, and reactive to light and accomodation, Extraocular movements: intact throughout, Conjunctiva: normal, no exudate, no injection, Sclera: no appreciated abnormality, Lids and lashes: appear normal, bilaterally. 15:35 ENT: External ear(s): are unremarkable, Ear canal(s): are normal, clear, TM's: bulging, is not appreciated, bilaterally, dullness, bilaterally, erythema, is not appreciated, bilaterally, Nose: is normal, Mouth: Lips: moist, Oral mucosa: pink and intact, moist, Posterior pharynx: is normal, airway is patent, no erythema, no exudate. 15:35 Neck: C-spine: vertebral tenderness, is not appreciated, crepitus, is not appreciated, ROM/movement: pain, that is mild, limited range of motion, is not appreciated, nuchal rigidity, is not appreciated. 15:35 Chest/axilla: Inspection: normal, Palpation: is normal, no crepitus, no tenderness. 15:35 Cardiovascular: Rate: normal, Rhythm: regular, Edema: is not appreciated, JVD: is not appreciated. 15:35 Respiratory: the patient does not display signs of respiratory distress, Respirations: normal, no use of accessory muscles, no retractions, no splinting, no tachypnea, labored breathing, is not present, Breath sounds: are clear throughout, no decreased breath sounds, no stridor, no wheezing. 15:35 Abdomen/GI: Inspection: abdomen appears normal, Bowel sounds: active, all quadrants, Palpation: abdomen is soft and non-tender, in all quadrants. 15:35 Back: pain, is absent, ROM is normal, vertebral tenderness, is not appreciated. 15:35 Musculoskeletal/extremity: Extremities: grossly normal except: noted in the right shoulder: pain, tenderness, There is no evidence of decreased ROM, deformity, noted in the right hip: pain, no evidence of decreased ROM, deformity, noted in the right knee: no evidence of decreased ROM, deformity, tenderness. 15:35 Neuro: Orientation: to person, place \T\ time. Mentation: is normal, Cerebellar function: is grossly normal, Motor: moves all fours, Sensation: is normal. Vital Signs: 14:36 BP 176 / 96; Pulse 69; Resp 17; Temp 97.6; Pulse Ox 98% on R/A; Pain 10/10; sg 15:50 BP 144 / 75; Pulse 63; Resp 18; Pulse Ox 99% on R/A; tw2 17:38 BP 138 / 81; Pulse 70; Resp 17; Pulse Ox 98% on R/A; tw2 [place] Coma Score: 14:32 Eye Response: spontaneous(4). Verbal Response: oriented(5). Motor Response: obeys sg commands(6). Total: 15. MDM: 14:32 Patient medically screened. cp 15:30 Differential diagnosis: closed head injury, contusion, fracture, laceration, multiple cp trauma. 17:25 Data reviewed: vital signs, nurses notes, radiologic studies, CT scan, plain films. cp 17:25 Counseling: I had a detailed discussion with the patient and/or guardian regarding: the cp historical points, exam findings, and any diagnostic results supporting the discharge/admit diagnosis, radiology results. Response to treatment: the patient's symptoms have mildly improved after treatment, VSS. Xrays negative for fracture and head CT negative for acute injury, and as a result, I will discharge patient. 11/25 15:12 Order name: XRAY Shoulder RIGHT 2 view cp 11/25 15:12 Order name: XRAY Pelvis cp 11/25 15:12 Order name: XRAY Hip RIGHT 2 view cp 11/25 15:12 Order name: Ice pack; Complete Time: 15:25 cp 11/25 15:50 Order name: CT Head C Spine cp 11/25 15:50 Order name: Sling; Complete Time: 17:38 tw2 Administered Medications: 15:38 Drug: Tylenol 1000 mg Route: PO; dm5 16:33 Follow up: Response: No adverse reaction tw2 Disposition: 11/25/18 17:26 Discharged to Home. Impression: Fall on same level from slipping, tripping and stumbling, Pain in right shoulder - from fall, Pain in right hip - from fall. - Condition is Stable. - Discharge Instructions: Shoulder Pain, Shoulder Range of Motion Exercises, Hip Pain. - Medication Reconciliation Form, Thank You Letter, Antibiotic Education, Prescription Opioid Use form. - Follow up: Private Physician; When: 2 - 3 days; Reason: Recheck today's complaints. - Problem is new. - Symptoms have improved. Addendum: 11/29/2018 06:53 Co-signature as Attending Physician, Francisco Enriquez MD I agree with the assessment and k dr plan of care. Signatures: Dispatcher [employer] EDLela Mcdonald RN RN dm5 Erik Samuels RN RN Francisco Enriquez MD MD [facility] Preston Harrison PA PA cp Meredith Solis, RN RN tw2 Corrections: (The following items were deleted from the chart) 11/25 17:39 17:26 11/25/2018 17:26 Discharged to Home. Impression: Fall on same level from tw2 slipping, tripping and stumbling; Pain in right shoulder - from fall; Pain in right hip - from fall. Condition is Stable. Forms are Medication Reconciliation Form, Thank You Letter, Antibiotic Education, Prescription Opioid Use. Follow up: Private Physician; When: 2 - 3 days; Reason: Recheck today's complaints. Problem is new. Symptoms have improved. cp
[2018-11-25 17:45] VITALS: TEMP 97.6
[2018-11-25 17:47] VITALS: BP 138/81; O2SAT 98
--- NOTE | 2018-11-25 17:54 | RAD REPORT ---
EXAM DESCRIPTION: RAD - Shoulder Right 2 View - 11/25/2018 3:34 pm CLINICAL HISTORY: fall at home;Pain Fall, trauma, shoulder pain COMPARISON: No comparisons FINDINGS: No acute fracture or dislocation is seen. No aggressive marrow lesion.
--- NOTE | 2018-11-26 10:00 | RAD REPORT ---
EXAM DESCRIPTION: RAD - Hip Right 2 View - 11/25/2018 3:35 pm CLINICAL HISTORY: Fall at home Fall, trauma, right hip pain COMPARISON: None FINDINGS: AP pelvis and right hip, multiple projections are submitted. No acute fracture or dislocation seen. No radiographic evidence of AVN.
== END 2018-11-25 17:39 | disposition home or self-care (01) ==
LOC: ER 14:27
DX: M25.511 Pain in right shoulder (principal); M25.551 Pain in right hip; W01.190A Fall on same level from slipping, tripping and stumbling with subsequent striking against furniture, initial encounter; Y93.9 Activity, unspecified; Y92.9 Unspecified place or not applicable; I10 Essential (primary) hypertension; E78.00 Pure hypercholesterolemia, unspecified; F41.8 Other specified anxiety disorders; G89.29 Other chronic pain; Z88.0 Allergy status to penicillin; Z88.6 Allergy status to analgesic agent; Z91.09 Other allergy status, other than to drugs and biological substances
CPT/HCPCS: 70450; 72125; 72170; 99284

== ENCOUNTER 2018-12-13 20:27 | Observation (INO) | payer OTHER ==
--- OUTSIDE RECORDS SUMMARY | 2018-12-13 20:30 | XMS REPORT | Clinical Summary ---
:1960 Author Organization [facility] Address [address] [place] [address] Care Team Providers Name Role Phone Kevon [...] Last Done Comments BREAST CANCER SCREENING 2011 COLONOSCOPY SCREENING 2011 SHINGLES VACCINES (#1) 2011 INFLUENZA VACCINE 01/27/2019 Implants Implanted Type Area Recordist Chief Device Shelf Model / Serial Identifier Expiration / Lot Date Kit Bone Grft Lmbr Tprd 8ml Xxl Infuse - [id number] Human Tissue N/A: [employer] SPINAL 07/30/2018 [id number] / Implanted: Qty: 1 on 02/02/2017 by Raulito Hopkins MD Implants N/A AND BIOLOGICS / Chip Canc Allograft Leader [facility] 15cc 0.1-4mm - [id number] Human Tissue Anterio MUSCULOSKELETAL 08/02/2019 [id number] / Implanted: Qty: 1 on 02/02/2017 by Raulito Hopkins MD Implants r: TRANSPLANT / Spine, FOUNDATION [id number] Multi-L evel Spacer [id number] Prmtr Xlg 8deg 14mm - [id number] IPM IMPLANT Anterio [employer] 08/01/2022 [id number] / Implanted: Qty: 1 on 02/02/2017 by Raulito Hopkins MD DEVICES r: SOFAMOR DANEK / Spine, [id number] Multi-L evel Spacer [id number] Prmtr Lg 12deg 12mm - [id number] IPM IMPLANT Anterio [employer] 02/19/2024 [id number] / Implanted: Qty: 1 on 02/02/2017 by Raulito Hopkins MD DEVICES r: SOFAMOR DANEK / Spine, 47CR Multi-L evel Sovereign Fa Screw [id number] 5.5 X 25mm - [id number] IPM IMPLANT Anterio [employer] [id number] / Implanted: Qty: 2 on 02/02/2017 by Raulito Hopkins MD DEVICES r: SOFAMOR DANEK / Spine, VENDOR LOT NA Multi-L evel Set Screw [id number] 5.5 Ti Ns Brk Off - [id number] IPM IMPLANT Posteri [employer] [id number] / Implanted: Qty: 6 on 02/02/2017 by Raulito Hopkins MD DEVICES or: SOFAMOR DANEK / Spine, VENDOR LOT NA Multi-L evel Screw [id number] 5.5 Mas 6.5x50 Cc - [id number] IPM IMPLANT Posteri [employer] [id number] / Implanted: Qty: 4 on 02/02/2017 by Raulito Hopkins MD DEVICES or: SOFAMOR DANEK / Spine, VENDOR LOT NA Multi-L evel Screw [id number] 5.5 Mas 6.5x40 Cc - [id number] IPM IMPLANT Posteri [employer] [id number] / Implanted: Qty: 2 on 02/02/2017 by Raulito Hopkins MD DEVICES or: SOFAMOR DANEK / Spine, VENDOR LOT NA Sacral Blake [id number] 5.5 Ccm Ns Curv 50mm - [id number] IPM IMPLANT Posteri [employer] [id number] / Implanted: Qty: 2 on 02/02/2017 by Raulito Hopkins MD DEVICES or: SOFAMOR DANEK / Spine, VENDOR LOT NA Multi-L evel Washer Bone Grft Ti 17mm - [id number] Orthopedic Anterio [employer] SPINAL [id number] / Implanted: Qty: 2 on 02/02/2017 by Raulito Hopkins MD Trauma r: AND BIOLOGICS / Implants Spine, VENDOR LOT NA Multi-L evel Kit Selnt Fibrin Humn [facility] 5ml Evicel - [id number] Surgical Posteri [facility] 04/28/2018 [id number] / Implanted: Qty: 1 on 02/02/2017 by Raulito Hopkins MD Implants; or: / Expanders; Spine, [id number] Extenders; Multi-L Surgical evel Wires Kit Selnt Fibrin Humn [facility] 5ml Evicel - [id number] [facility] 04/28/2018 [id number] / Implanted: Qty: 1 on 02/02/2017 by Raulito Hopkins MD Implants; or: / Expanders; Spine, [id number] Extenders; Multi-L Surgical evel Wires Results Not on fileafter 12/12/2017 Insurance Payer Benefit Plan / Subscriber ID Effective Dates Phone Address Type Group MEDICARE MEDICARE PART A xxxxxxxxxx 2005-Present [place] B Advance Directives Patient has advance care planning documents on file. For more information, please contact:Guilherme Crowley[address] [place] [address]
[2018-12-13] MEDS ORDERED: FENTANYL CITR 100 MCG/2 ML ONE (21:33)
[2018-12-13 21:47] LABS: Potassium 3.7 mmol/L (3.5-5.1)
[2018-12-13 22:03] LABS: Basophils % 0.5 % (0-1.3); Eosinophils % 0.9 % (0-4.4); Hematocrit 38.4 % (36.0-45.0); Lymphocytes % 11.8 % (15.3-44.8); Monocytes % 5.1 % (3.3-12.3); RBC Red Blood Cell Count 4.36 M/uL (3.86-4.86)
[2018-12-13] MEDS ORDERED: NA CHLORIDE 0.9% 1,000 ML ONE (22:51)
[2018-12-13 23:55] LABS: Urine Blood TRACE (NEG); Urine Glucose NEGATIVE (NEG); Urine Protein NEGATIVE (NEG); Urine Specific Gravity >1.030 (1.005-1.030)
[2018-12-14] MEDS ORDERED: FENTANYL CITR 100 MCG/2 ML ONE (00:18)
[2018-12-14] MEDS ORDERED: CEFOXITIN/SWI 1gm 1 GM/10 ML SYR ONE (00:47)
--- NOTE | 2018-12-14 01:26 | EDPHYS ---
Physician Documentation [facility] Name: Oneida Lea Age: 58 yrs Sex: Female : 1960 Arrival Date: 12/13/2018 Time: 20:30 Bed 18 Private MD: ED Physician Matt Harris HPI: 12/14 01:03 This 58 yrs old Female presents to ER via EMS with complaints of Abdominal gs Pain. 01:03 The patient presents with abdominal pain in the lower abdomen. Onset: The gs symptoms/episode began/occurred acutely, yesterday, has colonoscopy yesterday. 01:10 The symptoms do not radiate. Associated signs and symptoms: Pertinent positives: gs nausea. The symptoms are described as crampy, sharp. Modifying factors: the symptoms are aggravated by movement. Severity of pain: At its worst the pain was moderate in the emergency department the pain is unchanged. The patient has not experienced similar symptoms in the past. The patient has been recently seen by a physician: earlier today. Historical: - Allergies: 12/13 20:34 meperidine HCl; ak1 20:34 Demerol; ak1 20:34 PENICILLINS; ak1 20:34 topical iodine; ak1 - Home Meds: 20:34 hydrocodone-acetaminophen 5-325 mg Oral tab 1 tab every 6 hours for Pain [Active]; ak1 methocarbamol 750 mg Oral tab 1 tab twice a day [Active]; zolpidem 10 mg Oral tab 1 tab once daily [Active]; Zofran (as hydrochloride) 4 mg Oral tab every 8 hours [Active]; metronidazole 500 mg Oral tab 1 tab 3 times per day [Active]; losartan 100 mg Oral tab once daily [Active]; Metoprolol Tartrate Oral [Active]; Lyrica Oral [Active]; Tramadol Oral [Active]; - PMHx: 20:34 Anxiety; Chronic pain; Depression; Diverticulitis; Hypertension; High Cholesterol; ak1 - PSHx: 20:34 Hysterectomy; Cholecystectomy; Appendectomy; Tonsillectomy; spinal fusion; back surgery;ak1 - Immunization history:: Adult Immunizations unknown. - Social history:: Smoking status: Patient/guardian denies using tobacco. - Ebola Screening: : No symptoms or risks identified at this time. ROS: 12/14 01:10 All other systems are negative. gs Exam: 01:10 Head/Face: Normocephalic, atraumatic. Eyes: Pupils equal round and reactive to light, gs extra-ocular motions intact. Lids and lashes normal. Conjunctiva and sclera are non-icteric and not injected. Cornea within normal limits. Periorbital areas with no swelling, redness, or edema. ENT: Nares patent. No nasal discharge, no septal abnormalities noted. Tympanic membranes are normal and external auditory canals are clear. Oropharynx with no redness, swelling, or masses, exudates, or evidence of obstruction, uvula midline. Mucous membranes moist. Neck: Trachea midline, no thyromegaly or masses palpated, and no cervical lymphadenopathy. Supple, full range of motion without nuchal rigidity, or vertebral point tenderness. No Meningismus. Chest/axilla: Normal chest wall appearance and motion. Nontender with no deformity. No lesions are appreciated. Cardiovascular: Regular rate and rhythm with a normal S1 and S2. No gallops, murmurs, or rubs. Normal PMI, no JVD. No pulse deficits. Respiratory: Lungs have equal breath sounds bilaterally, clear to auscultation and percussion. No rales, rhonchi or wheezes noted. No increased work of breathing, no retractions or nasal flaring. Back: No spinal tenderness. No costovertebral tenderness. Full range of motion. Skin: Warm, dry with normal turgor. Normal color with no rashes, no lesions, and no evidence of cellulitis. MS/ Extremity: Pulses equal, no cyanosis. Neurovascular intact. Full, normal range of motion. Neuro: Awake and alert, GCS 15, oriented to person, place, time, and situation. Cranial nerves II-XII grossly intact. Motor strength 5/5 in all extremities. Sensory grossly intact. Cerebellar exam normal. Normal gait. 01:10 Constitutional: The patient appears alert, awake. 01:10 ECG was reviewed by the Attending Physician. 01:10 Abdomen/GI: Palpation: moderate abdominal tenderness, in the right upper quadrant and left lower quadrant. Vital Signs: 12/13 20:34 BP 131 / 56; Pulse 78; Resp 16; Temp 97.6; Pulse Ox 97% on R/A; Weight 90.72 kg (R); ak1 Height 5 ft. 4 in. (162.56 cm) (R); Pain 10/10; 21:15 BP 133 / 72; Pulse 80; Resp 16 S; Pulse Ox 97% on R/A; cc3 22:30 BP 134 / 70; Pulse 84; Resp 17 S; Pulse Ox 98% on R/A; cc3 23:15 BP 113 / 62; Pulse 93; Resp 16 S; Pulse Ox 98% on R/A; cc3 12/14 00:30 BP 132 / 73; Pulse 94; Resp 17 S; Pulse Ox 96% on R/A; cc3 01:45 BP 119 / 72; Pulse 96; Resp 17 S; Pulse Ox 96% on R/A; cc3 02:30 BP 113 / 68; Pulse 101; Resp 16 S; Pulse Ox 96% on R/A; cc3 03:15 BP 119 / 66; Pulse 96; Resp 17 S; Pulse Ox 97% on R/A; cc3 12/13 20:34 Body Mass Index 34.33 (90.72 kg, 162.56 cm) ak1 MDM: 12/13 21:10 Patient medically screened. 12/14 01:10 Differential diagnosis: diverticulitis, gastritis, non-specific abd pain, pancreatitis. Data reviewed: vital signs, nurses notes, lab test result(s), EKG, radiologic studies. Response to treatment: the patient's symptoms have mildly improved after treatment. Physician consultation: Donal Valerio MD regarding patient's condition, would like admission per Dr. Kevon Gonsalez MD. 12/13 21:11 Order name: CBC with Diff; Complete Time: 22:13 12/13 21:11 Order name: Basic Metabolic Panel; Complete Time: 22:13 12/13 21:11 Order name: CT Abd/Pelvis - Without Contrast 12/13 23:23 Order name: Urine Dipstick--Ancillary (enter results); Complete Time: 00:24 mw2 12/13 21:11 Order name: Urine Dipstick-Ancillary (obtain specimen); Complete Time: 22:57 12/13 21:11 Order name: IV Saline Lock; Complete Time: 21:14 12/13 23:45 Order name: EKG - Nurse/Tech; Complete Time: 00:05 12/14 00:40 Order name: CONS Physician Consult EDCA 12/14 00:40 Order name: NPO EDMS EC:10 Rate is 97 beats/min. Rhythm is regular. RI interval is normal. QRS interval is normal. gs T waves are Inverted in leads III, aVF. Clinical impression: NSR w/ Non-specific ST/T Changes. Interpreted by me. Administered Medications: 12/13 21:20 Drug: fentaNYL (PF) 50 mcg Route: IVP; Site: left antecubital; cc3 22:00 Follow up: Response: No adverse reaction; Pain is decreased cc3 22:40 Drug: NS 0.9% 1000 ml Route: IV; Rate: 1 bolus; Site: left antecubital; cc3 12/14 00:00 Follow up: Response: No adverse reaction; IV Status: Completed infusion; IV Intake: cc3 1000ml 00:05 Drug: fentaNYL (PF) 50 mcg Route: IVP; Site: left antecubital; cc3 00:52 Follow up: Response: No adverse reaction; Pain is decreased cc3 00:40 Drug: cefOXitin 1 grams Route: IVPB; Infused Over: 30 mins; Site: left antecubital; cc3 01:10 Follow up: Response: No adverse reaction; IV Status: Completed infusion; IV Intake: [id number] Disposition: 12/14/18 01:25 Hospitalization ordered by Kevon Gonsalez for Observation. Preliminary diagnosis is Other acute postprocedural pain. - Bed requested for Telemetry/MedSurg (observation). - Status is Observation. cc3 - Condition is Stable. - Problem is new. - Symptoms are unchanged. UTI on Admission? No Signatures: Dispatcher [employer] [facility] Ashley Castaneda RN RN akHuong Mnculty RN RN cg Matt Harris MD MD gs Cordel, Charlene cc3 Corrections: (The following items were deleted from the chart) 02:18 01:25 Hospitalization Ordered by Kevon Gonsalez MD for Observation. Preliminary diagnosis cg is Other acute postprocedural pain. Bed requested for Telemetry/MedSurg (observation). Status is Observation. Condition is Stable. Problem is new. Symptoms are unchanged. UTI on Admission? No. gs 03:36 02:18 12/14/2018 01:25 Hospitalization Ordered by Kevon Gonsalez MD for Observation. cc3 Preliminary diagnosis is Other acute postprocedural pain. Bed requested for Telemetry/MedSurg (observation). Status is Observation. Condition is Stable. Problem is new. Symptoms are unchanged. UTI on Admission? No. cg
--- NOTE | 2018-12-14 01:26 | ER ---
Nurse's Notes [facility] Name: Oneida Lea Age: 58 yrs Sex: Female : 1960 Arrival Date: 12/13/2018 Time: 20:30 Bed 18 Private MD: Diagnosis: Other acute postprocedural pain Presentation: 12/13 20:31 Presenting complaint: EMS states: pt had colonoscopy today at 0900, pt c/o right lower ak1 abd pain radiates to right flank. pt given 12.5mg Phenergan IV INVOICE CHECKER. Transition of care: patient was not received from another setting of care. Onset of symptoms was December 13, 2018. Risk Assessment: Do you want to hurt yourself or someone else? Patient reports no desire to harm self or others. Initial Sepsis Screen: Does the patient meet any 2 criteria? No. Patient's initial sepsis screen is negative. Does the patient have a suspected source of infection? No. Patient's initial sepsis screen is negative. Care prior to arrival: Medication(s) given: Phenergan, 12.5 mg, IV initiated. 20 GA, in the left antecubital area. 20:31 Method Of Arrival: EMS: [facility] ak1 20:31 Acuity: CINTHYA 3 ak1 Triage Assessment: 20:34 General: Appears in no apparent distress. ak1 20:35 General: Appears in no apparent distress. uncomfortable, Behavior is calm, cooperative, cc3 appropriate for age. Pain: Complains of pain in right lower abdomen, right flank Pain radiates to right flank. EENT: No signs and/or symptoms were reported regarding the EENT system. Neuro: Level of Consciousness is awake, alert, obeys commands, Oriented to person, place, time, situation, Appropriate for age. Cardiovascular: Denies chest pain, Patient's skin is warm and dry. Respiratory: Airway is patent Respiratory effort is even, unlabored, Respiratory pattern is regular, symmetrical. GI: Abdomen is round obese. : No signs and/or symptoms were reported regarding the genitourinary system. Derm: Skin is intact, is healthy with good turgor, Skin is pink, warm \T\ dry. normal. Musculoskeletal: Circulation, motion, and sensation intact. Range of motion: intact in all extremities. Historical: - Allergies: 20:34 meperidine HCl; ak1 20:34 Demerol; ak1 20:34 PENICILLINS; ak1 20:34 topical iodine; ak1 - Home Meds: 20:34 hydrocodone-acetaminophen 5-325 mg Oral tab 1 tab every 6 hours for Pain [Active]; ak1 methocarbamol 750 mg Oral tab 1 tab twice a day [Active]; zolpidem 10 mg Oral tab 1 tab once daily [Active]; Zofran (as hydrochloride) 4 mg Oral tab every 8 hours [Active]; metronidazole 500 mg Oral tab 1 tab 3 times per day [Active]; losartan 100 mg Oral tab once daily [Active]; Metoprolol Tartrate Oral [Active]; Lyrica Oral [Active]; Tramadol Oral [Active]; - PMHx: 20:34 Anxiety; Chronic pain; Depression; Diverticulitis; Hypertension; High Cholesterol; ak1 - PSHx: 20:34 Hysterectomy; Cholecystectomy; Appendectomy; Tonsillectomy; spinal fusion; back surgery;ak1 - Immunization history:: Adult Immunizations unknown. - Social history:: Smoking status: Patient/guardian denies using tobacco. - Ebola Screening: : No symptoms or risks identified at this time. Screenin:35 Abuse screen: Denies threats or abuse. Denies injuries from another. Nutritional cc3 screening: No deficits noted. Tuberculosis screening: No symptoms or risk factors identified. Fall Risk Ambulatory Aid- None/Bed Rest/Nurse Assist (0 pts). Gait- Normal/Bed Rest/Wheelchair (0 pts) Mental Status- Oriented to own ability (0 pts). Assessment: 20:35 General: see triage assessment. cc3 20:35 GI: Bowel sounds present X 4 quads. Abd is soft and non tender. cc3 21:27 Reassessment: Patient appears in no apparent distress at this time. Patient and/or cc3 family updated on plan of care and expected duration. Pain level reassessed. Patient is alert, oriented x 3, equal unlabored respirations, skin warm/dry/pink. Patient came back from CT scan department, awaiting result. 22:25 Reassessment: Patient appears in no apparent distress at this time. Patient and/or cc3 family updated on plan of care and expected duration. Pain level reassessed. Patient is alert, oriented x 3, equal unlabored respirations, skin warm/dry/pink. 23:19 Reassessment: Patient appears in no apparent distress at this time. Patient and/or cc3 family updated on plan of care and expected duration. Pain level reassessed. Patient is alert, oriented x 3, equal unlabored respirations, skin warm/dry/pink. 12/14 00:29 Reassessment: Patient appears in no apparent distress at this time. Patient and/or cc3 family updated on plan of care and expected duration. Pain level reassessed. Patient is alert, oriented x 3, equal unlabored respirations, skin warm/dry/pink. 01:18 Reassessment: Patient appears in no apparent distress at this time. Patient and/or cc3 family updated on plan of care and expected duration. Pain level reassessed. Patient is alert, oriented x 3, equal unlabored respirations, skin warm/dry/pink. 02:35 Reassessment: Patient appears in no apparent distress at this time. Patient and/or cc3 family updated on plan of care and expected duration. Pain level reassessed. Patient is alert, oriented x 3, equal unlabored respirations, skin warm/dry/pink. Patient for admission and room available at [facility], called for report and handed over to MAGGI Valenzuela for continuity of care and management. Asked Dr. Harris to put PRN pain meds in [facility] as requested by inpatient staff. 03:30 Reassessment: Patient appears in no apparent distress at this time. Patient and/or cc3 family updated on plan of care and expected duration. Pain level reassessed. Patient is alert, oriented x 3, equal unlabored respirations, skin warm/dry/pink. Patient left ER for admission vitally stable by wheelchair escorted by me. Patient denies pain at this time. Patient states feeling better. Patient states symptoms have improved. Vital Signs: 12/13 20:34 BP 131 / 56; Pulse 78; Resp 16; Temp 97.6; Pulse Ox 97% on R/A; Weight 90.72 kg (R); ak1 Height 5 ft. 4 in. (162.56 cm) (R); Pain 10/10; 21:15 BP 133 / 72; Pulse 80; Resp 16 S; Pulse Ox 97% on R/A; cc3 22:30 BP 134 / 70; Pulse 84; Resp 17 S; Pulse Ox 98% on R/A; cc3 23:15 BP 113 / 62; Pulse 93; Resp 16 S; Pulse Ox 98% on R/A; cc3 12/14 00:30 BP 132 / 73; Pulse 94; Resp 17 S; Pulse Ox 96% on R/A; cc3 01:45 BP 119 / 72; Pulse 96; Resp 17 S; Pulse Ox 96% on R/A; cc3 02:30 BP 113 / 68; Pulse 101; Resp 16 S; Pulse Ox 96% on R/A; cc3 03:15 BP 119 / 66; Pulse 96; Resp 17 S; Pulse Ox 97% on R/A; cc3 12/13 20:34 Body Mass Index 34.33 (90.72 kg, 162.56 cm) ak1 ED Course: 12/13 20:30 Patient arrived in ED. ak1 20:32 Triage completed. ak1 20:34 Arm band placed on Patient placed in an exam room, on a stretcher, on pulse oximetry, ak1 Patient notified of wait time. 20:34 Maintain EMS IV. Dressing intact. Site clean \T\ dry. Gauge \T\ site: gauge 20 left ACV. cc 3 20:35 Patricia Orona is Primary Nurse. cc3 20:35 Patient has correct armband on for positive identification. Placed in gown. Bed in low cc3 position. Call light in reach. Side rails up X 1. groundwater monitoring technician on. Pulse ox on. NIBP on. 20:49 Matt Harris MD is Attending Physician. gs 21:[address] vm2 21:47 CT Abd/Pelvis - Without Contrast In Process Unspecified. EDMS 12/14 01:24 Kevon Gonsalez MD is Hospitalizing Provider. gs 02:35 No provider procedures requiring assistance completed. Patient admitted, IV remains in cc3 place. Administered Medications: 12/13 21:20 Drug: fentaNYL (PF) 50 mcg Route: IVP; Site: left antecubital; cc3 22:00 Follow up: Response: No adverse reaction; Pain is decreased cc3 22:40 Drug: NS 0.9% 1000 ml Route: IV; Rate: 1 bolus; Site: left antecubital; cc3 12/14 00:00 Follow up: Response: No adverse reaction; IV Status: Completed infusion; IV Intake: cc3 1000ml 00:05 Drug: fentaNYL (PF) 50 mcg Route: IVP; Site: left antecubital; cc3 00:52 Follow up: Response: No adverse reaction; Pain is decreased cc3 00:40 Drug: cefOXitin 1 grams Route: IVPB; Infused Over: 30 mins; Site: left antecubital; cc3 01:10 Follow up: Response: No adverse reaction; IV Status: Completed infusion; IV Intake: [id number] Intake: 00:00 IV: 1000ml; Total: 1000ml. cc3 01:10 IV: 50ml; Total: 1050ml. cc3 Outcome: 01:25 Decision to Hospitalize by Provider. 02:35 Admitted to Tele accompanied by nurse, via wheelchair, room 428, with chart, Report cc3 called to MAGGI Valenzuela 02:35 Condition: stable 02:35 Instructed on the need for admit, Demonstrated understanding of instructions. 03:36 Patient left the ED. cc3 Signatures: Dispatcher [employer] EDAshley Thao RN RN ak1 McGuire, Victoria Matt Jacobs MD MD gs Cordel, Charlene cc3 Corrections: (The following items were deleted from the chart) 0617 22:07 21:27 Reassessment: Patient appears in no apparent distress at this time. Patient cc3 and/or family updated on plan of care and expected duration. Pain level reassessed. Patient is alert, oriented x 3, equal unlabored respirations, skin warm/dry/pink. cc3
[2018-12-14] MEDS: D5 0.45 NS 1,000 ML IV SCH ×3 (03:58→17:00)
[2018-12-14] MEDS ORDERED: ACETAMINOPHEN 500 MG TAB PO PRN (04:26)
[2018-12-14] MEDS: MORPHINE 2 MG/ML SYR IV PRN ×3 (05:41→17:11)
[2018-12-14] MEDS ORDERED: NA CHLORIDE 0.9% 100 ML IV ONE (05:51)
[2018-12-14] MEDS ORDERED: CEFOXITIN SODIUM 1 GM/VIAL IVPB SCH (06:00)
[2018-12-14] MEDS ORDERED: TRAMADOL HCL 50 MG TAB PO PRN (07:53)
[2018-12-14] MEDS ORDERED: DICYCLOMINE HCL 10 MG CAP PO PRN (07:53)
[2018-12-14] MEDS ORDERED: CYCLOBENZAPRINE 10 MG TAB PO PRN (07:53)
[2018-12-14] MEDS ORDERED: ONDANSETRON 4 MG (ODT) TAB PO PRN (07:53)
[2018-12-14 08:28] VITALS: BMI 36.1
[2018-12-14] MEDS ORDERED: VALSARTAN PO SCH (09:00)
[2018-12-14] MEDS: LOSARTAN POTASSIUM 50 MG TABLET PO SCH ×2 (09:00→10:26)
[2018-12-14] MEDS ORDERED: HYDROCHLOROTHIAZIDE PO SCH (09:00)
--- NOTE | 2018-12-14 09:42 | RAD REPORT ---
EXAM DESCRIPTION: CT - Abdomen Pelvis Wo Contrast - 12/14/2018 2:41 am CLINICAL HISTORY: 58 years Female, ABD PAIN COMPARISON: None. TECHNIQUE: 5 mm axial images of the abdomen and pelvis were obtained without intravenous contrast. 3 mm coronal and sagittal reformatted images were obtained.. This exam was performed according to our departmental dose-optimization program, which includes autom ated exposure control, adjustment of the mA and/or kV according to patient size and/or use of iterati ve reconstruction technique. INTRAVENOUS CONTRAST: None. FINDINGS: Lung bases: Normal. Liver: There is diffuse fatty liver infiltration.. Spleen: Normal. Pancreas: Normal. Gallbladder: Normal. Right adrenal gland: Normal. Left adrenal gland: Normal. Right kidney: Normal. Left kidney: Normal. Retroperitoneal structures: Normal. Bowel survey: There is focal mural thickening and pericolonic edema involving the hepatic flexure. These findings extend over a distance of 5 cm. Differential would include colitis versus inflammatory mass. There is moderately severe diverticulosis of the descending colon.. Urinary bladder: Normal. Uterus and adnexa: The uterus is absent. The ovaries are unremarkable.. Peritoneal cavity: Normal. Mesentery structures: Normal. Abdominal wall: No hernia. Bony structures: No suspicious lesions. There is evidence of spinal fusion extending from L4 through S1. IMPRESSION: 1. Colitis versus inflammatory mass lesion involving the hepatic flexure. 2. Diffuse fatty liver infiltration. Electronically signed by: Hank Evans MD 12/13/2018 9:59 PM CDT Due to temporary technical issues with the PACS/Fluency reporting system, reports are being signed by the in house radiologist as a courtesy to ensure prompt reporting. The interpreting radiologist is f ully responsible for the content of the report.
[2018-12-14] MEDS: PREGABALIN 50 MG CAP PO SCH ×2 (10:26→21:45)
[2018-12-14] MEDS: PARoxetine HCl 10 MG TAB PO SCH (10:26)
[2018-12-14] MEDS: METOPROLOL TAR 50 MG TAB PO SCH ×2 (10:27→21:45)
[2018-12-14] MEDS: CEFOXITIN/SWI 1gm 1 GM/10 ML SYR IV SCH ×2 (11:35→17:11)
--- NOTE | 2018-12-14 16:29 | EKG ---
Test Date: 2018-12-13 Test Time: 23:59:57 Physical Chemistry Teacher: MARISSA MEASUREMENT RESULTS: Intervals: Rate: 97 NM: 142 QRSD: 86 QT: 370 QTc: 469 [place]: P: 55 NM: 142 QRS: 32 T: -6 INTERPRETIVE STATEMENTS: Normal sinus rhythm Prolonged QT Abnormal ECG Compared to ECG 11/30/2015 10:05:45 Prolonged QT interval now present Sinus bradycardia no longer present Left-axis deviation no longer present Electronically Signed On 12-14-18 16:27:26 CDT by Mando Boston
--- NOTE | 2018-12-14 20:40 | CON ---
Reason For Consultation: Suspected colitis. History Of Presenting Illness: The patient is a 58-year-old woman who has had several admissions to the hospital with abdominal complaints. She has had diverticulitis in the past, has had a recent end oscopy, also had a colonoscopy yesterday. The patient states that she had abdominal pain, which is s imilar to the diverticulitis. Her pain tends to be lower abdomen and also in the right upper quadran t. She came to the ER, was admitted due to abnormal CT findings. The CT had revealed thickening of the mucosa of the hepatic flexure consistent with colitis. No other pathology seen. The patient den ies any hematemesis, melena, or hematochezia. No fever. The patient has been on antibiotics since t he hospitalization, states that she feels much better. She is still n.p.o. Past Medical History: Anxiety, chronic pain, depression, history of diverticulitis. Past Surgical History: Hysterectomy, cholecystectomy, appendectomy, tonsillectomy, spinal fusion, ba ck surgery. Family History: Noncontributory. Social History: No toxic habits. Review of Systems: GI: As in HPI, otherwise negative. Remainder of 10-point review of systems is negative. Allergies: MENTIONED IN THE CHART, PENICILLIN, DEMEROL, AND MEPERIDINE NOTABLE ALLERGIES. Laboratory Data: Reviewed. No leukocytosis. Imaging Data: Reviewed, as mentioned above. Impression: A 58-year-old woman with abdominal chronic symptoms, did have a history of diverticuliti s. Has had recent colonoscopy and CT findings revealing questionable colitis at the hepatic flexure, it may or may not be related to the recent procedure. 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 Plan: Continue current management for now. I will start her on clear liquid diet. Continue antibio tic. If her condition continues to improve as it has, she can be discharged tomorrow and follow up i n the GI Clinic as an outpatient basis. We will follow up with her with the biopsies that were taken at the time of the colonoscopy. US/MODL Voice ID: [id number] Report ID: [id number]
[2018-12-14 21:03] VITALS: O2SAT 97
[2018-12-14] MEDS: ZOLPIDEM TARTRATE 10 MG TABLET PO SCH (21:46)
[2018-12-15] MEDS: D5 0.45 NS 1,000 ML IV SCH ×4 (00:15→21:30)
[2018-12-15] MEDS: CEFOXITIN/SWI 1gm 1 GM/10 ML SYR IV SCH ×4 (00:15→17:20)
--- NOTE | 2018-12-15 01:17 | HP ---
Date of Admission: 12/14/2018 Chief Complaint: Abdominal pain. History Of Present Illness: A 58-year-old female, who had colonoscopy and polypectomy, on the day of admission to emergency room started having pain in the right abdominal area. The patient had a CAT scan and other workup in the emergency room. There was no evidence of perforation. However, because of the inflammatory changes in the hepatic flexure, the patient is admitted for observation. Past Medical History: The patient is known to have a history of diverticulitis in the past. Other p ast medical history includes history of hypertension, hyperlipidemia, depression, chronic pain issues , and anxiety disorder. Past Surgical History: Positive for back surgery, appendix surgery, tonsillectomy, gallbladder surge ry, and hysterectomy. Allergies: MULTIPLE INCLUDE DEMEROL, PENICILLIN, IODINE. Family History: Noncontributory. Review of Systems: No chest pain or shortness of breath. Home Medicines: Please refer to the chart. Physical Examination: General: Revealed a 58-year-old female, not in acute distress. Vital Signs: Normal. HEENT: Negative. Neck: Supple. JVD negative. Chest: Clear. Heart: Regular. Abdomen: Mild tenderness in the right umbilical area. Bowel sounds present. No palpable mass. Extremities: No edema. Laboratory Data: Laboratory done in the emergency room. White count normal. Chem profile with BUN 21, random blood sugar of 127. CAT scan of the abdomen with inflammatory changes, right colon. Assessment: 1.Abdominal pain. 2.Colonoscopy and polypectomy. 3.Hypertension. 4.Hyperlipidemia. 5.Chronic pain syndrome. 6.Anxiety and depression. Plan: The patient was started on Mefoxin and the patient already had geriatric consultation. The pa antonette does not have any evidence of acute abdomen. The patient will be observed to see whether her p ain would improve with conservative observation. IGOR/FANI Voice ID: [id number]
[2018-12-15] MEDS: MORPHINE 2 MG/ML SYR IV PRN ×5 (03:50→21:20)
[2018-12-15 04:28] LABS: Absolute Lymphocytes (CBC) 1.7 K/uL (0.7-4.9); Basophils % 0.3 % (0-1.3); Eosinophils % 1.9 % (0-4.4); Hematocrit 34.1 % (36.0-45.0); Lymphocytes % 25.8 % (15.3-44.8); MPV 7.7 fL (7.6-11.3); Monocytes % 5.3 % (3.3-12.3); RBC Red Blood Cell Count 3.91 M/uL (3.86-4.86)
[2018-12-15 04:39] LABS: Albumin 3.4 g/dL (3.4-5.0); Bilirubin Direct 0.1 mg/dL (0-0.2); Bilirubin Total 0.5 mg/dL (0.2-1.0); Potassium 3.2 mmol/L (3.5-5.1); Protein, Total 6.6 g/dL (6.4-8.2)
[2018-12-15] MEDS: PANTOPRAZOLE 40MG TABLET PO SCH (06:22)
[2018-12-15] MEDS: METOPROLOL TAR 50 MG TAB PO SCH ×2 (08:29→21:25)
[2018-12-15] MEDS: hydroCHLOROthiazide 12.5 MG CAP PO SCH (08:30)
[2018-12-15] MEDS: PARoxetine HCl 10 MG TAB PO SCH (08:30)
[2018-12-15] MEDS: PREGABALIN 50 MG CAP PO SCH ×2 (08:31→21:25)
[2018-12-15] MEDS: VALSARTAN 80 MG TAB PO SCH (08:31)
[2018-12-15] MEDS: ZOLPIDEM TARTRATE 10 MG TABLET PO SCH (21:25)
[2018-12-16] MEDS: CEFOXITIN/SWI 1gm 1 GM/10 ML SYR IV SCH ×2 (00:07→06:13)
--- NOTE | 2018-12-16 01:19 | PN ---
The patient's abdomen is less tender today. She is able to tolerate liquid diet. She will have adva nced diet today. I will see how she responds. The patient is afebrile. The patient is restarted on her regular medications. IGOR/FANI Voice ID: [id number] Report ID: [id number]
[2018-12-16] MEDS: MORPHINE 2 MG/ML SYR IV PRN ×2 (02:13→06:20)
[2018-12-16] MEDS: D5 0.45 NS 1,000 ML IV SCH ×2 (06:13→08:37)
[2018-12-16] MEDS: PANTOPRAZOLE 40MG TABLET PO SCH (06:13)
[2018-12-16] MEDS: PREGABALIN 50 MG CAP PO SCH (08:33)
[2018-12-16] MEDS: VALSARTAN 80 MG TAB PO SCH (08:33)
[2018-12-16] MEDS: PARoxetine HCl 10 MG TAB PO SCH (08:33)
[2018-12-16] MEDS: hydroCHLOROthiazide 12.5 MG CAP PO SCH (08:34)
[2018-12-16] MEDS: METOPROLOL TAR 50 MG TAB PO SCH (08:34)
[2018-12-16 08:35] VITALS: BP 172/89
[2018-12-16 08:59] VITALS: TEMP 97.3
== END 2018-12-16 10:58 | disposition home or self-care (01) ==
LOC: ER 20:27 → ERHOLD 12-14 00:31 → 4TH 12-14 02:45
PROVIDERS: ADMIT Internal Medicine; ATTEND Internal Medicine
DX: R10.11 Right upper quadrant pain (principal); R10.30 Lower abdominal pain, unspecified; Z86.010 Personal history of colon polyps; Z87.19 Personal history of other diseases of the digestive system; K76.0 Fatty (change of) liver, not elsewhere classified; E78.00 Pure hypercholesterolemia, unspecified; I10 Essential (primary) hypertension; G89.29 Other chronic pain; F41.9 Anxiety disorder, unspecified; F32.9 Major depressive disorder, single episode, unspecified; R94.31 Abnormal electrocardiogram [ECG] [EKG]; Z79.891 Long term (current) use of opiate analgesic; Z79.899 Other long term (current) drug therapy
CPT/HCPCS: 96365; 96361; 93005; 85025 ×2; 80048 ×2; 36415 ×2; 80076; 81003; 83690; 74176; 96375; 99285; J3010 ×2; J2270 ×10; J7030; G0378; J0694

== ENCOUNTER 2019-12-08 23:03 | Emergency (ER) | payer OTHER ==
--- OUTSIDE RECORDS SUMMARY | 2019-12-08 23:06 | XMS REPORT | Continuity of Care Document ---
:1960 Author Organization [facility] t Address [address] [place] [address] Care Team Providers Name Role Phone Feliciano SLATER Primary Care Physician Pcp, Does Not Have A Attending Clinician Pob1, Care Clinic Attending Clinician Unavailable Problems Condition Condition Condition Status Onset Resolution Last Treating Co mments Source Name Details Category Date Date Treatment Clinician Date Lumbar Lumbar Disease Active [place] degenerati degenerati 02-02 Me thodi ve disc ve disc 00:00: st disease disease 00 Allergies, Adverse Reactions, Alerts Allergy Allergy Status Severity Reaction(s) Onset Inactive Treating Comm ents Source Name Type Date Date Clinician Meperidi Propensi Active GI VOMITTING Aleksandra lexx ne ty to Intolerance 01-30 Metho di adverse 00:00: st reaction 00 s to drug Iodine Propensi Active Rash [place] ty to 01-30 Methodi adverse 00:00: st reaction 00 s to drug Penicill Propensi Active Shortness Of [place] in G ty to Breath, Rash 01-30 Meth dinah adverse 00:00: st reaction 00 s to drug Family History Family Member Diagnosis Comments Start Date Stop Date Source Natural father No Known Problems Aleksandra stomagali Baptism Natural mother Diabetes [facility] thodist Social History Social Habit Start Date Stop Date Quantity Comments Source History of Current smoker [facility]od[facility] tobacco use Sex Assigned At [facility] ethodist Alcohol intake 2017-02-04 2017-02-04 Current [place] [facility] 00:00:00 00:00:00 non-drinker of alcohol (finding) Smoking Status Start Date Stop Date Source Former smoker 2017-02-04 00:00:00 2017-02-04 00:00:00 [facility] Medications Ordered Filled Start Stop Current Ordering Indication Dosage Frequency Signature Comments Components Source Medication Medication Date Date Medication? Clinician (SIG) Name Name dicyclomine Yes 10mg Q.25D Take 10 mg [place] (BENTYL) 10 8-10 by mouth 4 Me thodi MG capsule 19:59: (four) st 50 times a day before meals and nightly. esomeprazol Yes 20mg QD Take 20 mg [place] e (NexIUM) 8-10 by mouth Metho di 20 MG 19:59: daily st capsule 50 before breakfast. methocarbam Yes Take 1 [place] 8-07 tablet Methodi (ROBAXIN-75 00:00: every 6 st 0) 750 MG 00 hours as tablet needed for spasms HYDROcodone Yes 1{tbl} Q4H Take 1 [place] -acetaminop 7-17 tablet by Met pily hen (NORCO) 00:00: mouth st 7.5-325 mg 00 every 4 per tablet (four) hours as needed. zolpidem Yes 1{tbl} Take 1 [place] (AMBIEN) 10 7-17 tablet by Met hodi mg tablet 00:00: mouth as st 00 needed. valsartan Yes 160mg QD Take 160 Aleksandra ston (DIOVAN) 7-15 mg by Methodi 160 MG 00:00: mouth st tablet 00 daily. PARoxetine Yes 40mg QD Take 40 mg [place] (PAXIL) 40 6-14 by mouth Metho di MG tablet 00:00: daily. st 00 metoprolol Yes 1{tbl} QD Take 1 Aleksandra ston tartrate 6-14 tablet by Method i (LOPRESSOR) 00:00: mouth st 100 mg 00 daily. tablet rOPINIRole Yes 1{tbl} QD Take 1 Aleksandra ston (REQUIP) 6-14 tablet by Method i 0.5 MG 00:00: mouth st tablet 00 daily. atorvastati Yes 1{tbl} QD Take 1 [place] (LIPITOR) 6-14 tablet by Met consueloi 10 MG 00:00: mouth st tablet 00 daily. Procedures This patient has no known procedures. Plan of Care Planned Activity Planned Date Details Comments Source Future Scheduled 2020-01-28 INFLUENZA VACCINE [place] [facility] 00:00:00 [code = INFLUENZA VACCINE] Future Scheduled 2011 BREAST CANCER [facility] thodist Test 00:00:00 SCREENING [code = BREAST CANCER SCREENING] Future Scheduled 2011 COLONOSCOPY SCREENING [place] [facility] Test 00:00:00 [code = COLONOSCOPY SCREENING] Future Scheduled 2011 SHINGLES VACCINES [place] [facility] Test 00:00:00 (#1) [code = SHINGLES VACCINES (#1)] Future Scheduled 1982 Screening for [facility] thodist Test 00:00:00 malignant neoplasm of cervix (procedure) [code = 742879309] Encounters Start End Encounter Admission Attending Care Care Encounter Source Date/Time Date/Time Type Type Clinicians Facility Department ID 2019-11-11 2019-11-11 Telephone Pcp, [facility] [id number] 00:00:00 00:00:00 Patient Health [id number] Does Not Surgical [id number] Have A Specialti [id number] es [address] [place] 2019-11-09 2019-11-09 Urgent Pob1, Acute [facility] [id number] 14:10:27 14:50:22 Care Care Clinic Health [id number] [place] [id number] Professio [phone] nal [address] One Results This patient has no known results.
--- OUTSIDE RECORDS SUMMARY | 2019-12-08 23:06 | XMS REPORT | Clinical Summary ---
:1960 Author Organization [facility] Address [address] [place] [address] Care Team Providers Name Role Phone Kevon [...] (REQUIP) 0.5 Take 1 tablet by 0 7 Active MG tablet mouth daily. HYDROcodone-acetaminophe Take 1 tablet by 0 01/13/20 17 Active n (NORCO) 7.5-325 mg per mouth every 4 tablet (four) hours as needed. atorvastatin (LIPITOR) Take 1 tablet by 0 12/10/2016 Active 10 MG tablet mouth daily. zolpidem (AMBIEN) 10 mg Take 1 tablet by 0 7 Active tablet mouth as needed. dicyclomine (BENTYL) 10 Take 10 mg by 0 Active MG capsule mouth 4 (four) times a day before meals and nightly. esomeprazole (NexIUM) 20 Take 20 mg by 0 Active MG capsule mouth daily before breakfast. methocarbamol Take 1 tablet 40 tablet 3 02/02/2017 A ctive (ROBAXIN-750) 750 MG every 6 hours as [...] CANCER SCREENING 1982 BREAST CANCER SCREENING 2011 COLONOSCOPY SCREENING 2011 SHINGLES VACCINES (#1) 2011 INFLUENZA VACCINE 01/28/2020 Implants Implanted Type Area Edge Gluer Device Shelf Model / Serial Identifier Expiration / Lot Date Kit Bone Grft Lmbr Tprd 8ml Xxl Infuse - [id number] Human Tissue N/A: MEDTRONIC SPINAL 07/30/2018 [id number] / Implanted: Qty: 1 on 02/02/2017 by Raulito Hopkins MD at [facility] Implants N/A AND BIOLOGICS / Chip Canc Allograft Leader [facility] 15cc 0.1-4mm - [id number] Human Tissue Anterio MUSCULOSKELETAL 08/02/2019 [id number] / Implanted: Qty: 1 on 02/02/2017 by Raulito Hopkins MD at [facility] Implants r: TRANSPLANT / Spine, FOUNDATION [id number] Multi-L evel Spacer [id number] Prmtr Xlg 8deg 14mm - [id number] IPM IMPLANT Anterio [employer]TR[employer]IC 08/01/2022 [id number] / Implanted: Qty: 1 on 02/02/2017 by Raulito Hopkins MD at [facility] DEVICES r: SOFAMOR DANEK / Spine, [id number] Multi-L evel Spacer [id number] Prmtr Lg 12deg 12mm - [id number] IPM IMPLANT Anterio [employer]IC 02/19/2024 [id number] / Implanted: Qty: 1 on 02/02/2017 by Raulito Hopkins MD at [facility] DEVICES r: SOFAMOR DANEK / Spine, 47CR Multi-L evel Sovereign Fa Screw [id number] 5.5 X 25mm - [id number] IPM IMPLANT Ante lynda [employer] [id number] / Implanted: Qty: 2 on 02/02/2017 by Raulito Hopkins MD at [facility] DEVICES r: SOFAMOR DANEK / Spine, VENDOR LOT NA Multi-L evel Set Screw [id number] 5.5 Ti Ns Brk Off - [id number] IPM IMPLANT Posteri [employer] [id number] / Implanted: Qty: 6 on 02/02/2017 by Raulito Hopkins MD at [facility] DEVICES or: SOFAMOR DANEK / Spine, VENDOR LOT NA Multi-L evel Screw [id number] 5.5 Mas 6.5x50 Cc - [id number] IPM IMPLANT Posteri [employer] [id number] / Implanted: Qty: 4 on 02/02/2017 by Raulito Hopkins MD at [facility] DEVICES or: SOFAMOR DANEK / Spine, VENDOR LOT NA Multi-L evel Screw [id number] 5.5 Mas 6.5x40 Cc - [id number] IPM IMPLANT Posteri [employer] [id number] / Implanted: Qty: 2 on 02/02/2017 by Raulito Hopkins MD at [facility] DEVICES or: SOFAMOR DANEK / Spine, VENDOR LOT NA Sacral Blake [id number] 5.5 Ccm Ns Curv 50mm - [id number] IPM IMPLANT Posteri [employer] [id number] / Implanted: Qty: 2 on 02/02/2017 by Raulito Hopkins MD at [facility] DEVICES or: SOFAMOR DANEK / Spine, VENDOR LOT NA Multi-L evel Washer Bone Grft Ti 17mm - [id number] Orthopedic Anterio [employer] SP INAL [id number] / Implanted: Qty: 2 on 02/02/2017 by Raulito Hopkins MD at [facility] Trauma r: AND BIOLOGICS / Implants Spine, VENDOR LOT NA Multi-L evel Kit Selnt Fibrin [facility] Surgy 5ml Evicel - [id number] Surgica l Posteri ETHICON - 04/28/2018 [id number] / Implanted: Qty: 1 on 02/02/2017 by Raulito Hopkins MD at [facility] Implants; or: / Expanders; Spine, [id number] Extenders; Multi-L Surgical evel Wires Kit Selnt Fibrin [facility] Surgy 5ml Evicel - [id number] Surgica l Posteri ETHICON - 04/28/2018 [id number] / Implanted: Qty: 1 on 02/02/2017 by Raulito Hopkins MD at [facility] Implants; or: / Expanders; Spine, [id number] Extenders; Multi-L Surgical evel Wires Results Not on fileafter 12/07/2018 Insurance Payer Benefit Plan / Subscriber ID Effective Dates Phone Addre ss Type Group MEDICARE MEDICARE PART A xxxxxxxxxx 2005-Present ROCIO ARCE Medicare AND B Advance Directives For more information, please contact: [phone] Type Date Recorded Patient Bundle Tier And Labeler Explanati on Advance Directives, 01/30/2017 2:25 PM Living Will and Medical Power of Applications Tester Advance Directives, 02/06/2017 3:11 PM Living Will and Medical Power of Applications Tester
--- OUTSIDE RECORDS SUMMARY | 2019-12-08 23:07 | XMS REPORT | Summary of Care ---
:1960 Author Organization [facility] Address [address] [place] [address] Care Team Providers Name Role Phone Pcp, Patient Does Not Have A Primary Care Provider +1-000-00 0-0000 Reason for Visit Reason Comments Fever Tmax: 100.0 Body Aches Cough Dry Headache Encounter Details Date Type Department Care Team Description 11/09/2019 Urgent Care [facility] Family Natali Nelson PA [address] [place] [address] [phone] Acute URI (Primary Dx); [place] [id number], Acute Care Clinic Persistent cough; [facility] [place] [address] Allergies Active Allergy Reactions Severity Noted Date Comments Meperidine Hcl Nausea and/or Vomiting 11/09/2019 Penicillins Anaphylaxis High 11/09/2019 documented as of this encounter (statuses as of 11/09/2019) Medications Medication Sig Dispensed Refills Start Date End Date Status valsartan (DIOVAN ORAL) Take by mouth. 0 Active cyclobenzaprine HCl Take by mouth. 0 Active (FLEXERIL ORAL) METOPROLOL TARTRATE ORAL Take by mouth. 0 Active atorvastatin calcium Take by mouth. 0 Active (ATORVASTATIN ORAL) pregabalin (LYRICA ORAL) Take by mouth. 0 Active HYDROCODONE-ACETAMINOPHEN Take by mouth. 0 Active ORAL tramadol HCl (TRAMADOL Take by mouth. 0 Active ORAL) paroxetine HCl (PAXIL Take by mouth. 0 Active ORAL) lamotrigine (LAMICTAL Take by mouth. 0 Active ORAL) azithromycin 250 mg Take 1 tablet 1 Package 0 11/09/2019 Active tabletIndications: Acute by mouth daily. URI, Persistent cough Take 500 mg day 1, then 250 mg days 2 to 5. documented as of this encounter (statuses as of 11/09/2019) Active Problems Problem Noted Date Acute URI 11/09/2019 Cough 11/09/2019 documented as of this encounter (statuses as of 11/09/2019) Social History Tobacco Use Types Packs/Day Years Used Date Former Smoker Smokeless Tobacco: Never Used Sex Assigned at Date Recorded Not on file Job Start Date Occupation Industry Not on file Not on file Not on file Travel History Travel Start Travel End No recent travel history available. documented as of this encounter Last Filed Vital Signs Vital Sign Reading Time Taken Comments Blood Pressure 166/91 11/09/2019 2:24 PM CDT Pulse 88 11/09/2019 2:17 PM CDT Temperature 37 C (98.6 F) 11/09/2019 2:17 PM CDT Respiratory Rate 18 11/09/2019 2:17 PM CDT Oxygen Saturation 98% 11/09/2019 2:17 PM CDT Inhaled Oxygen Concentration - - Weight 90.7 kg (200 lb) 11/09/2019 2:17 PM CDT Height 162.6 cm (5' 4") 11/09/2019 2:17 PM CDT Body Mass Index 34.33 11/09/2019 2:17 PM CDT documented in this encounter Progress Notes Aleksandra Huerta RN - 11/09/2019 2:00 PM CDT Oneida Lea is a 59 year old female presents the Urgent Care covid clinic with the CC Chief Complaint Patient presents with Fever Tmax: 100.0 Body Aches Cough Dry Shortness of Breath Headache The patient stated "I have been feeling like this for a month now". EYTMaggi Nelson PA - 11/09/2019 2:00 PM CDT Cc: Chief Complaint Patient presents with Fever Tmax: 100.0 Body Aches Cough Dry Headache Oneida Lea is a 59 year old female. Patient presents with URI symptoms that began ongoing x 2 weeks. Travel: no. COVID19 exposure? no. Sick Contacts? no PCP-Dr. Shook Completed visit with him yesterday and he advised to report here for covid testing. Patient reports a mild nonproductive cough that is well controlled with otc mucinex DM. Denies shortness of breath. Denies dyspnea. No cp, palpitations, dizziness, syncope. URI Presenting symptoms: congestion, cough (nonproductive), fatigue, fever (tmax: 100 last night), rhinorrhea and sore throat Presenting symptoms: no ear pain and no facial pain Severity: Mild Duration: 2 weeks Timing: Intermittent Progression: Unchanged Chronicity: New Worsened by: Nothing Ineffective treatments: mucinex DM. Associated symptoms: arthralgias Associated symptoms: no headaches, no myalgias, no neck pain, no sinus pain, no sneezing, no swoll[place] and no wheezing Risk factors: chronic cardiac disease (htn) Risk factors: not elderly, no chronic kidney disease, no chronic respiratory disease, no diabetes mellitus, no immunosuppression, no recent illness, no recent travel and no sick contacts Allergies Oneida is allergic to pcn [penicillins]. Medications Outpatient Medications Prior to Visit Medication Sig Dispense Refill atorvastatin calcium (ATORVASTATIN ORAL) Take by mouth. cyclobenzaprine HCl (FLEXERIL ORAL) Take by mouth. HYDROCODONE-ACETAMINOPHEN ORAL Take by mouth. lamotrigine (LAMICTAL ORAL) Take by mouth. METOPROLOL TARTRATE ORAL Take by mouth. paroxetine HCl (PAXIL ORAL) Take by mouth. pregabalin (LYRICA ORAL) Take by mouth. tramadol HCl (TRAMADOL ORAL) Take by mouth. valsartan (DIOVAN ORAL) Take by mouth. No facility-administered medications prior to visit. Histories Past Medical History: Diagnosis Date Bipolar 1 disorder Chronic pain GERD (gastroesophageal reflux disease) Hyperlipidemia Hypertension Neuropathy Past Surgical History: Procedure Laterality Date [place] SPINE/LUMBAR DISK SURGERY Social History Socioeconomic History Marital status: Spouse name: Not on file Number of children: Not on file Years of education: Not on file Highest education level: Not on file Occupational History Not on file Social Needs Financial resource strain: Not on file Food insecurity: Worry: Not on file Inability: Not on file Transportation needs: Medical: Not on file Non-medical: Not on file Tobacco Use Smoking status: Former Smoker Smokeless tobacco: Never Used Substance and Sexual Activity Alcohol use: Not on file Drug use: Never Sexual activity: Not on file Lifestyle Physical activity: Days per week: Not on file Minutes per session: Not on file Stress: Not on file Relationships Social connections: Talks on phone: Not on file Gets together: Not on file Attends episcopalian service: Not on file Active member of club or organization: Not on file Attends meetings of clubs or organizations: Not on file Relationship status: Not on file Intimate partner violence: Fear of current or ex partner: Not on file Emotionally abused: Not on file Physically abused: Not on file Forced sexual activity: Not on file Other Topics Concern Not on file Social History Narrative Lives at home with . Family History Problem Relation Age of Onset Hypertension Mother Diabetes Mother Hypertension Father Diabetes Father Review of Systems Constitutional: Positive for fatigue and fever (tmax: 100 last night). Negative for activity change,appetite change, chills and diaphoresis. HENT: Positive for congestion, rhinorrhea and sore throat. Negative for ear pain, mouth sores, postnasal drip, sinus pressure, sinus pain, sneezing, trouble swallowing and voice change. Eyes: Positive for discharge (watery) and itching. Negative for pain and redness. Respiratory: Positive for cough (nonproductive). Negative for apnea, choking, chest tightness, shortness of breath, wheezing and stridor. Cardiovascular: Negative for chest pain, palpitations and leg swelling. Gastrointestinal: Negative for abdominal pain, constipation, diarrhea, nausea and vomiting. Genitourinary: Negative for bladder incontinence, dysuria, urgency, frequency and hematuria. Musculoskeletal: Positive for arthralgias. Negative for back pain, gait problem, joint swelling, myalgias and neck pain. Skin: Negative for color change and rash. Neurological: Negative for dizziness, syncope, weakness, light-headedness, numbness and headaches. Vital Signs BP (!) 166/91 | Pulse 88 | Temp 37 C (98.6 F) (Oral) | Resp 18 | Ht 5' 4" (1.626 m) | Wt 200 lb (90.7 kg) | SpO2 98% | BMI 34.33 kg/m Vitals: 11/09/19 1417 11/09/19 1424 BP: (!) 156/72 (!) 166/91 BP Location: Right arm Pulse: 88 Resp: 18 Temp: 37 C (98.6 F) TempSrc: Oral SpO2: 98% Weight: 200 lb (90.7 kg) Height: 5' 4" (1.626 m) Physical Exam Constitutional: She is oriented to person, place, and time. She appears well- developed and well-nourished. No distress. HENT: Head: Normocephalic and atraumatic. Right Ear: External ear normal. Left Ear: External ear normal. Nose: Nose normal. Mouth/Throat: Oropharynx is clear and moist. Eyes: Conjunctivae are normal. Neck: Normal range of motion. Cardiovascular: Normal rate, regular rhythm and normal heart sounds. Pulmonary/Chest: Effort normal and breath sounds normal. No stridor. No respiratory distress. She has no wheezes. She has no rales. Abdominal: Soft. Bowel sounds are normal. She exhibits no distension. There is no tenderness. There is no rebound and no guarding. Musculoskeletal: Normal range of motion. She exhibits no edema. Neurological: She is alert and oriented to person, place, and time. Skin: Skin is warm and dry. No rash noted. She is not diaphoretic. Psychiatric: She has a normal mood and affect. Her behavior is normal. Nursing note and vitals reviewed. Assessment/Plan Acute URI (primary encounter diagnosis) Persistent Cough Sore throat Plan: CORONAVIRUS COVID-19 TESTING, CORONAVIRUS COVID-19 TESTING, azithromycin 250 mg tablet, XR CHEST 2 VW, POCT GRP A STREP (MOLECULAR) Results for ONEIDA LEA ( ) as of 11/09/2019 15:59 Ref. Range 11/09/2019 14:26 POCT GP A STREP Latest Ref Range: Negative - Negative negative Afebrile, well appearing, non-toxic, NAD. HR < 100, lungs CTAB, O2 sat 98%. No shortness of breath. No dyspnea. No respiratory distress. Strep test negative. COVID-19 test ordered. Persistent cough, recommend CXR to further evaluate, but patient refuses. Given duration of symptomsand comorbidities will start on zpack. Take full course as directed with food. Educated on the following at home care: -Increase water intake -Take over the counter vitamin C/multivitamin with vitamin C -Take Tylenol as needed, avoid nsaids -Take OTC Mucinex DM or Robitussin DM as needed -REST -Wash hands often -Cover mouth when coughing -Wear mask with in the same room/car as others -Gargle with warm salt water as needed -Drink warm liquids as needed. -Throat lozenges as needed -Quarantine until your COVID results are back -Stay in your own bedroom and use a separate bathroom -Keep at least 6 feet from you and others -Avoid sharing personal household items, dishes, glasses, cups, towels -Clean high traffic/touch areas daily. These include but not limited to: doorknobs, refrigerator/cabinet handles, phones, keyboards, tablets, light switches. -Monitor your symptoms. Take your temperature 2 times daily. -Follow-up with PCP as needed, if no improvement. -Monitor your symptoms. Go to the ED if worsening symptoms: chest pain, difficulty breathing, coughing up blood, weakness, dizziness, passing out, AMS. -CDC handout provided Pt ed/precautions given in detail regarding conditions/medicaitons. Er precautions given. Pt reportsunderstanding and agrees. rtc if s/s worsen or do not improve; Plan of care, desired health behaviors, goals, Ddx, & any prescribed or OTC medications discussed with patient. Education resources & self management tools provided and reviewed with AVS. Patient/guardian/family verbalized understanding & agrees to plan of care. Barriers to care: NONE Ability to manage care: Good This visit did not involve counseling and coordination that comprised more than 50% of the visit time. documented in this encounter Plan of Treatment Name Type Priority Associated Diagnoses Date/Ti me CORONAVIRUS COVID-19 LAB Routine Persistent cough 11/09/2019 2:14 PM TESTING Acute URI CDT Sore throat Name Type Priority Associated Diagnoses Order S chedule CORONAVIRUS COVID-19 LAB Routine Persistent cough Expected: 11/09/2019, TESTING Acute URI Expires: 11/08/2020 Sore throat XR CHEST 2 VW IMAGING Routine Persistent cough Expected: 11/09/2019, Acute URI Expires: 2020 Health Maintenance Due Date Last Done Comments HEPATITIS C (HCV) SCREEN 1960 DTaP,Tdap,and Td Vaccines (1 - 1972 Tdap) PAP SMEAR 1982 Breast Cancer Screening 2001 (MAMMOGRAM) COLONOSCOPY 2011 Zoster Recombinant Vaccine 2011 (SHINGRIX) (1 of 2) LUNG CANCER SCREEN: Recommended 2016 for age 55-80 with 30 + pack year history INFLUENZA VACCINE (Season Ended) 2020 PNEUMOCOCCAL 0-64 YEARS COMBINED Aged Out No longer eligible based on SERIES patient's age to complete this topic documented as of this encounter Procedures Procedure Name Priority Date/Time Associated Diagnosis Comme nts POCT GRP A STREP STAT 11/09/2019 2:26 PM Sore throat Resu lts for this (MOLECULAR) CDT procedure are i n the results section. documented in this encounter Results POCT GRP A STREP (MOLECULAR) (11/09/2019 2:26 PM CDT) Pathologist Sig nature POCT GP A STREP negative Negative - Negative Specimen Swab - THROAT documented in this encounter Visit Diagnoses Diagnosis Acute URI - Primary Acute upper respiratory infections of un specified site Persistent cough Cough Sore throat Acute pharyngitis documented in this encounter
--- OUTSIDE RECORDS SUMMARY | 2019-12-08 23:07 | XMS REPORT | Summary of Care ---
:1960 Author Organization [facility] Address [address] [place] [id number] Care Team Providers Name Role Phone Pcp, Patient Does Not Have A Primary Care Provider +1-000-08 0-0000 Reason for Visit Reason Comments Results Covid Encounter Details Date Type Department Care Team Description 11/11/2019 Telephone [facility] Pcp, Patient Does No t Results (Covid) Urgent Care Have A [address] [place] [address] [place] [address] Allergies Active Allergy Reactions Severity Noted Date Comments Meperidine Hcl Nausea and/or Vomiting 11/09/2019 Penicillins Anaphylaxis High 11/09/2019 documented as of this encounter (statuses as of 11/12/2019) Medications Medication Sig Dispensed Refills Start Date [...] as of this encounter (statuses as of 11/12/2019) Active Problems Problem Noted Date Acute URI 11/09/2019 Cough 11/09/2019 documented as of this encounter (statuses as of 11/12/2019) Social History Tobacco Use Types Packs/Day Years Used Date Former Smoker Smokeless Tobacco: Never Used Sex Assigned at Date Recorded Not on file Job Start Date Occupation Industry Not on file Not on file Not on file Travel History Travel Start Travel End No recent travel history available. documented as of this encounter Last Filed Vital Signs Not on filedocumented in this encounter Plan of Treatment Health Maintenance Due Date Last Done Comments HEPATITIS C (HCV) SCREEN 1960 DTaP,Tdap,and Td Vaccines (1 - 1972 Tdap) PAP SMEAR 1982 Breast Cancer Screening 2001 (MAMMOGRAM) COLONOSCOPY 2011 Zoster Recombinant Vaccine 2011 (SHINGRIX) (1 of 2) INFLUENZA VACCINE (Season Ended) 2020 PNEUMOCOCCAL 0-64 YEARS COMBINED Aged Out No longer eligible based on SERIES patient's age to complete this topic documented as of this encounter Results Not on filedocumented in this encounter
[2019-12-08 23:52] LABS: Absolute Lymphocytes (CBC) 1.1 K/uL (0.7-4.9); Basophils % 0.8 % (0-1.3); Hematocrit 38.9 % (36.0-45.0); Lymphocytes % 13.2 % (15.3-44.8); MPV 7.8 fL (7.6-11.3); RBC Red Blood Cell Count 4.52 M/uL (3.86-4.86)
[2019-12-08] MEDS ORDERED: PROMETHAZINE INJ 25 MG/ML AMP ONE (23:52)
[2019-12-08] MEDS ORDERED: NA CHLORIDE 0.9% 500 ML ONE (23:52)
[2019-12-09 00:10] LABS: Albumin 4.4 g/dL (3.4-5.0); Bilirubin Direct 0.2 mg/dL (0-0.2); Bilirubin Total 0.6 mg/dL (0.2-1.0); Protein, Total 7.5 g/dL (6.4-8.2)
[2019-12-09] MEDS ORDERED: MORPHINE 4 MG/ML SYR ONE (00:38)
[2019-12-09] MEDS ORDERED: PROMETHAZINE INJ 25 MG/ML AMP ONE (00:44)
--- NOTE | 2019-12-09 02:13 | EDPHYS ---
Physician Documentation [facility] Name: Oneida Lea Age: 59 yrs Sex: Female : 1960 Arrival Date: 12/08/2019 Time: 23:07 Bed 4 Private MD: Kevon Gonsalez R ED Physician Jared Donaldson HPI: 12/08 00:05 This 59 yrs old Female presents to ER via Ambulatory with complaints of ABD rn PAIN, Abdominal Pain. 00:05 The patient presents with abdominal pain in the epigastric area, in the lower abdomen. rn Onset: The symptoms/episode began/occurred 2 week(s) ago. The symptoms do not radiate. Associated signs and symptoms: Pertinent positives: nausea and vomiting, diarrhea, Pertinent negatives: blood in stools, constipation, fever. Modifying factors: The symptoms are alleviated by nothing, the symptoms are aggravated by touching the area. Severity of pain: At its worst the pain was mild in the emergency department the pain is unchanged. The patient has experienced similar episodes in the past. Reports abd pain, upper and lower, assoc with nausea/vomiting/diarrhea, no blood in stool, reports similar to previous episodes of diverticulitis. States zofran not working and unable to keep food down today, has thrown up 4 times. States this happens annually and usually has to be admitted to hospital. . Historical: - Allergies: 12/07 23:10 Demerol; sg 23:10 PENICILLINS; sg 23:10 topical iodine; sg - PMHx: 23:10 Anxiety; Chronic pain; Depression; Diverticulitis; High Cholesterol; Hypertension; sg - PSHx: 23:10 Hysterectomy; Cholecystectomy; Appendectomy; Tonsillectomy; spinal fusion; back surgery;sg - Immunization history:: Adult Immunizations up to date. - Social history:: Smoking status: Patient denies any tobacco usage or history of. - Family history:: not pertinent. - Hospitalizations: : No recent hospitalization is reported. ROS: 12/08 00:05 Constitutional: Negative for fever, chills, and weight loss, Eyes: Negative for injury, rn pain, redness, and discharge, Neck: Negative for injury, pain, and swelling, Cardiovascular: Negative for chest pain, palpitations, and edema, Respiratory: Negative for shortness of breath, cough, wheezing, and pleuritic chest pain, Abdomen/GI: + abd pain and nausea/vomiting/diarrhea MS/Extremity: Negative for injury and deformity, Skin: Negative for injury, rash, and discoloration, Neuro: Negative for headache, weakness, numbness, tingling, and seizure. Exam: 00:05 Constitutional: This is a well developed, well nourished patient who is awake, alert, rn and in no acute distress. Head/Face: Normocephalic, atraumatic. Cardiovascular: Regular rate and rhythm. No pulse deficits. Respiratory: No increased work of breathing, no retractions or nasal flaring. Abdomen/GI: soft, + epigastric and lower abd tenderness, no rebound Skin: Warm, dry MS/ Extremity: Pulses equal, no cyanosis. Neuro: Awake and alert, GCS 15 Vital Signs: 12/07 23:09 Temp 97.8; sg 23:19 BP 170 / 93; Pulse 79; Resp 18; Pulse Ox 99% on R/A; sg 12/08 00:00 BP 151 / 80; Pulse 78; Resp 16; Pulse Ox 98% on R/A; jb4 01:38 BP 135 / 73; Pulse 81; Resp 16; Pulse Ox 97% on R/A; jb4 MDM: 12/07 23:12 Patient medically screened. rn 12/08 02:11 Differential diagnosis: diverticulitis, gastritis, gastroesophageal reflux disease, rn non-specific abd pain, pancreatitis, Peptic Ulcer Disease. Differential diagnosis: Perf. Duodenal Ulcer, Perf. Gastric Ulcer. Data reviewed: vital signs, nurses notes. Counseling: I had a detailed discussion with the patient and/or guardian regarding: the historical points, exam findings, and any diagnostic results supporting the discharge/admit diagnosis, lab results, radiology results, the need for outpatient follow up, to return to the emergency department if symptoms worsen or persist or if there are any questions or concerns that arise at home. Response to treatment: the patient's symptoms have markedly improved after treatment, and as a result, I will discharge patient. Special discussion: Based on the patient's Hx, exam, and Dx evaluation, there is no indication for emergent surgery or inpatient Tx. It is understood by the patient/guardian that if the Sx's persist or worsen they need to return immediately for re-evaluation. I discussed with the patient/guardian in detail that at this point there is no indication for admission to the hospital. It is understood, however, that if the symptoms persist or worsen the patient needs to return immediately for re-evaluation. Based on the history and exam findings, there is no indication for further emergent testing or inpatient evaluation. I discussed with the patient/guardian the need to see the customer relations advisor for further evaluation of the symptoms. ED course: Pt improved, no acute findings in ct or bloodwork, will dc home with prn rectal phenergan and GI f/u for EGD. . 12/07 23:24 Order name: Basic Metabolic Panel rn 12/07 23:24 Order name: CBC with Diff; Complete Time: 00:09 rn 12/07 23:24 Order name: Hepatic Function; Complete Time: 00:21 rn 12/07 23:24 Order name: Lipase; Complete Time: 00:21 rn 12/07 23:24 Order name: CT Abd/Pelvis - PO and IV Contrast rn 12/07 23:32 Order name: Basic Metabolic Panel; Complete Time: 00:21 EDMS 12/07 23:24 Order name: IV Saline Lock; Complete Time: 23:43 rn 12/07 23:24 Order name: Labs collected and sent; Complete Time: 23:43 rn Administered Medications: 12/07 23:54 Drug: Phenergan 12.5 mg Route: IVP; Site: right antecubital; [facility] 12/08 00:23 Follow up: Response: No adverse reaction; Nausea is decreased [facility] 12/07 23:59 Drug: NS 0.9% 500 ml Route: IV; Rate: bolus; Site: right antecubital; [facility] 12/08 00:40 Follow up: Response: No adverse reaction; IV Status: Completed infusion; IV Intake: jb4 500ml 00:30 Drug: morphine 4 mg {Note: Rass score 0.} Route: IVP; Site: right antecubital; [facility] 01:00 Follow up: Response: No adverse reaction; Pain is decreased; RASS: Alert and Calm (0) [facility] 00:37 Drug: Phenergan 12.5 mg Route: IVP; Site: right antecubital; 4 01:00 Follow up: Response: No adverse reaction; Nausea is decreased [facility] Disposition: 12/09/19 02:13 Discharged to Home. Impression: Unspecified abdominal pain, Vomiting. - Condition is Stable. - Discharge Instructions: Abdominal Pain, Adult, Nausea and Vomiting, Adult. - Prescriptions for Phenergan 25 mg Rectal Suppository - insert 1 suppository by RECTAL route every 6 hours As needed; 12 suppository. - Medication Reconciliation Form, Thank You Letter, Antibiotic Education, Prescription Opioid Use form. - Follow up: Donal Valerio MD; When: As needed; Reason: Recheck today's complaints, Re-evaluation by your physician. - Problem is new. - Symptoms have improved. Signatures: Dispatcher [employer] EDMS Erik Samuels RN RN Jared Zhong MD MD rn Bryson, James, RN RN jb4 Corrections: (The following items were deleted from the chart) 02:13 02:13 12/09/2019 02:13 Discharged to Home. Impression: Unspecified abdominal pain. rn Condition is Stable. Forms are Medication Reconciliation Form, Thank You Letter, Antibiotic Education, Prescription Opioid Use. Follow up: Donal Valerio; When: As needed; Reason: Recheck today's complaints, Re-evaluation by your physician. Problem is new. Symptoms have improved. rn 02:30 02:13 12/09/2019 02:13 Discharged to Home. Impression: Unspecified abdominal pain; jb4 Vomiting. Condition is Stable. Forms are Medication Reconciliation Form, Thank You Letter, Antibiotic Education, Prescription Opioid Use. Follow up: Donal Valerio; When: As needed; Reason: Recheck today's complaints, Re-evaluation by your physician. Problem is new. Symptoms have improved. rn
--- NOTE | 2019-12-09 02:13 | ER ---
Nurse's Notes [facility] Name: Oneida Lea Age: 59 yrs Sex: Female : 1960 Arrival Date: 12/08/2019 Time: 23:07 Bed 4 Private MD: Kevon Gonsalez R Diagnosis: Unspecified abdominal pain;Vomiting Presentation: 12/07 23:09 Acuity: CINTHYA 3 sg 23:09 Chief complaint: Patient states: reports hx of diverticulosis, states that her GI sg instructed her that if her vomiting worsened to come to the ED for evaluation, pt states Zofran at home is not helping, states vomiting x4 in the last hour. States pain to the RUQ AND RLQ, having diarrhea as well. Coronavirus screen: Proceed with normal triage. Ebola Screen: Patient negative for fever greater than or equal to 101.5 degrees Fahrenheit, and additional compatible Ebola Virus Disease symptoms Patient denies exposure to infectious person. Patient denies travel to an Ebola-affected area in the 21 days before illness onset. No symptoms or risks identified at this time. Initial Sepsis Screen: Does the patient meet any 2 criteria? No. Patient's initial sepsis screen is negative. Does the patient have a suspected source of infection? No. Patient's initial sepsis screen is negative. Risk Assessment: Do you want to hurt yourself or someone else? Patient reports no desire to harm self or others. Onset of symptoms was December 08, 2019. Care prior to arrival: Medication(s) given: zofran 4 mg. Transition of care: patient was not received from another setting of care. 23:09 Method Of Arrival: Ambulatory sg Historical: - Allergies: 23:10 Demerol; sg 23:10 PENICILLINS; sg 23:10 topical iodine; sg - PMHx: 23:10 Anxiety; Chronic pain; Depression; Diverticulitis; High Cholesterol; Hypertension; sg - PSHx: 23:10 Hysterectomy; Cholecystectomy; Appendectomy; Tonsillectomy; spinal fusion; back surgery;sg - Immunization history:: Adult Immunizations up to date. - Social history:: Smoking status: Patient denies any tobacco usage or history of. - Family history:: not pertinent. - Hospitalizations: : No recent hospitalization is reported. Screenin:10 Abuse screen: Denies threats or abuse. Nutritional screening: No deficits noted. jb4 Tuberculosis screening: No symptoms or risk factors identified. Fall Risk None identified. Assessment: 23:10 General: Appears in no apparent distress. comfortable, Behavior is calm, cooperative, jb4 appropriate for age. Pain: Complains of pain in abdomen Pain does not radiate. Pain currently is 3 out of 10 on a pain scale. Quality of pain is described as crampy, Pain began 1 hour ago. Is continuous. Neuro: Level of Consciousness is awake, alert, obeys commands, Oriented to person, place, time, situation. Cardiovascular: Patient's skin is warm and dry. Respiratory: Airway is patent Respiratory effort is even, unlabored, Respiratory pattern is regular, agonal. GI: Abdomen is non-distended, obese, Bowel sounds present X 4 quads. Abd is soft X 4 quads Abd is non tender in right upper quadrant and left upper quadrant Abdomen is tender to palpation in right lower quadrant and left lower quadrant. : No signs and/or symptoms were reported regarding the genitourinary system. EENT: Derm: Skin is intact, Skin is pink, warm \T\ dry. Musculoskeletal: Circulation, motion, and sensation intact. Range of motion: intact in all extremities. 12/08 00:00 Reassessment: Patient appears in no apparent distress at this time. Patient and/or jb4 family updated on plan of care and expected duration. Pain level reassessed. Patient is alert, oriented x 3, equal unlabored respirations, skin warm/dry/pink. 00:45 Reassessment: Pt unable to tolerate PO contrast, per ER physician CT notified to use IV jb4 contrast only. 01:38 Reassessment: Patient appears in no apparent distress at this time. Patient and/or jb4 family updated on plan of care and expected duration. Pain level reassessed. Patient is alert, oriented x 3, equal unlabored respirations, skin warm/dry/pink. Patient denies pain at this time. Patient states feeling better. 02:28 Reassessment: Patient appears in no apparent distress at this time. Patient and/or jb4 family updated on plan of care and expected duration. Pain level reassessed. Patient is alert, oriented x 3, equal unlabored respirations, skin warm/dry/pink. Vital Signs: 12/07 23:09 Temp 97.8; sg 23:19 BP 170 / 93; Pulse 79; Resp 18; Pulse Ox 99% on R/A; sg 12/08 00:00 BP 151 / 80; Pulse 78; Resp 16; Pulse Ox 98% on R/A; jb4 01:38 BP 135 / 73; Pulse 81; Resp 16; Pulse Ox 97% on R/A; jb4 ED Course: 12/07 23:07 Patient arrived in ED. es 23:08 Kevon Gonsalez MD is Private Physician. es 23:09 Triage completed. sg 23:09 Arm band placed on. sg 23:10 Patient has correct armband on for positive identification. Bed in low position. Call jb4 light in reach. Side rails up X 1. Pulse ox on. NIBP on. 23:12 Jared Donaldson MD is Attending Physician. rn 23:13 Sunny Perez RN is Primary Nurse. jb4 23:45 Inserted saline lock: 22 gauge in right antecubital area, using aseptic technique. oe Blood collected. 12/08 01:27 CT Abd/Pelvis - PO and IV Contrast In Process Unspecified. EDMS 02:12 Donal Valerio MD is Referral Physician. rn 02:29 No provider procedures requiring assistance completed. IV discontinued, intact, jb4 bleeding controlled, No redness/swelling at site. Pressure dressing applied. Administered Medications: 12/07 23:54 Drug: Phenergan 12.5 mg Route: IVP; Site: right antecubital; jb4 12/08 00:23 Follow up: Response: No adverse reaction; Nausea is decreased jb4 12/07 23:59 Drug: NS 0.9% 500 ml Route: IV; Rate: bolus; Site: right antecubital; jb4 12/08 00:40 Follow up: Response: No adverse reaction; IV Status: Completed infusion; IV Intake: jb4 500ml 00:30 Drug: morphine 4 mg {Note: Rass score 0.} Route: IVP; Site: right antecubital; jb4 01:00 Follow up: Response: No adverse reaction; Pain is decreased; RASS: Alert and Calm (0) jb4 00:37 Drug: Phenergan 12.5 mg Route: IVP; Site: right antecubital; jb4 01:00 Follow up: Response: No adverse reaction; Nausea is decreased jb4 Intake: 00:40 IV: 500ml; Total: 500ml. jb4 Outcome: 02:13 Discharge ordered by . rn 02:29 Discharged to home ambulatory, with family. jb4 02:29 Condition: stable 02:29 Discharge instructions given to patient, family, Instructed on discharge instructions, follow up and referral plans. medication usage, Demonstrated understanding of instructions, follow-up care, medications, Prescriptions given X 1. 02:30 Patient left the ED. jb4 Signatures: Dispatcher [employer] EDErik Bar RN RN sg Salyer, Edna es Nieto, Roman, MD MD rn Bryson, James, RN RN jbTroy Leahy Corrections: (The following items were deleted from the chart) 12/07 23:22 23:19 BP 170 / 93; Pulse 18bpm; Resp 79bpm; Pulse Ox 99% RA; oe 12/08 00:26 12/07 23:10 GI: Abdomen is non-distended, obese, jb4 jb4 12/08 02:30 02:30 Response: No adverse reaction; IV Status: Completed infusion; IV Intake: 500ml [id number]
[2019-12-09 02:38] VITALS: TEMP 97.8
[2019-12-09 02:53] VITALS: BP 135/73; O2SAT 97
--- NOTE | 2019-12-09 11:04 | RAD REPORT ---
EXAM DESCRIPTION: CT - Abdomen Pelvis W Contrast - 12/09/2019 6:36 am CLINICAL HISTORY: 59 years Female hx of colitis/diverticulitis; Abd pain TECHNIQUE: Contiguous axial images obtained through the abdomen and pelvis during the rapid administ ration of IV contrast. Oral contrast also administered. Coronal and sagittal reformatted images pro vided. This CT exam was performed according to our departmental dose-optimization program, which includes on e or more of the following dose reduction techniques: automated exposure control, adjustment of the m A and/or kV according to patient size, and/or use of iterative reconstruction technique. COMPARISON: No prior exams provided for comparison. FINDINGS: There is mild atherosclerosis without abdominal aortic aneurysm or dissection. The celiac axis, superior mesenteric artery, and single bilateral renal arteries, and inferior mesenteric artery , and bilateral iliac arteries are patent. No retroperitoneal hemorrhage. The lung bases are clear. There is steatosis of the liver, which is enlarged without focal lesion. Prior cholecystectomy without abnormal biliary dilatation. The pancreas, spleen, adrenal glands, kidneys, and urinary bladder demonstrate no acute findings. Small sliding hiatal hernia. Oral contrast in the stomach only. Suspected prior appendectomy. Descend ing colonic diverticulosis without diverticulitis. No visualized bowel inflammation, obstruction, pne umatosis, free intraperitoneal air, abscess, or ascites. No visualized intraluminal bleeding in the b owel. Left external oblique lipoma incidentally noted. Postsurgical changes at L4-S1. No acute fracture or aggressive osseous lesion. IMPRESSION: No abdominal aortic aneurysm, dissection, or rupture. Colonic diverticulosis without diverticulitis. No bowel inflammation, obstruction, or perforation. No visualized active bleeding. Steatosis of the liver, which is enlarged. Electronically signed by: Lakia Mccollum MD 12/09/2019 1:34 AM CDT Due to temporary technical issues with the PACS/Fluency reporting system, reports are being signed by the in house radiologist without review as a courtesy to ensure prompt reporting. The interpreting r adiologist is fully responsible for the content of the report.
== END 2019-12-09 02:30 | disposition home or self-care (01) ==
LOC: ER 23:03
DX: R10.9 Unspecified abdominal pain (principal); R11.10 Vomiting, unspecified; Z88.0 Allergy status to penicillin; Z88.6 Allergy status to analgesic agent; Z91.09 Other allergy status, other than to drugs and biological substances
CPT/HCPCS: 96361; 85025; 80048; 36415; 80076; 83690; 74177; 96375; 96374; 99284; Q9967; J2550 ×2; J7040

== ENCOUNTER 2020-08-01 08:14 | Emergency (ER) | payer OTHER ==
--- OUTSIDE RECORDS SUMMARY | 2020-08-01 08:23 | XMS REPORT | Clinical Summary ---
:1960 Author Organization [facility] Address [address] [place] [address] Care Team Providers Name Role Phone Kevon [...] Noted Date Lumbar degenerative disc disease 02/02/2017 Surgical History Surgery Date Site/Laterality Comments HYSTERECTOMY CHOLECYSTECTOMY BACK SURGERY FUSION, ANTERIOR SPINAL 02/02/2017 L4-S1 AL IF, L5-S1 redo COLUMN, LUMBAR, ANTERIOR lami an d fusion APPROACH FUSION, ANT AND POST SPINAL 02/02/2017 Spine Lumbar/Anterio r Procedure: LUMBAR FOUR - COLUMN, LUMBAR, ANTERIOR AND FIV E, LUMBAR FIVE - POSTERIOR APPROACHES, W SACRAL O NE ANTERIOR LUMBAR LAMINECTOMY LUMBAR INTERB MCKENZIE FUSION; Surgeon: Raulito Hopkins MD; Location: [facility] Main OR; Service: Neurosurgery; Laterality: Ante rior; Medical devices from this surgery are in the Implants section . FUSION, SPINE, LUMBAR, WITH 02/02/2017 Spine Lumbar Proc edure: OPEN LUMBAR LAMINECTOMY, POSTERIOR FOUR - FI VE, LUMBAR FIVE APPROACH - SACRAL ONE RED O LAMINECTOMY AND FUSION ; Surgeon: Raulito Hopkins MD; Location: [facility] Main OR; Service: Neurosurgery;; Medical devices from this surgery are in the Implants section . Medical History Medical History Date Comments Hypertension High cholesterol H/O blood clots Depression Diverticulitis Sleep disorder Arthritis Sciatica Wears eyeglasses Hypoglycemia Low blood sugar Wears dentures PERMANENT PER PT Exercise tolerance finding WALKING 2TIME S/WEEK - NO CP OR SOB Family History Medical History Relation Name Comments No Known Problems Father Diabetes Mother Relation Name Status Comments Father Mother Alive Social History Tobacco Use Types Packs/Day Years Used Date Former Smoker Quit: 2005 Smokeless Tobacco: Never Used Alcohol Use Drinks/Week oz/Week Comments No Sex Assigned at Date Recorded Not on file Last Filed Vital Signs Not on file Plan of Treatment Health Maintenance Due Date Last Done Comments COVID-19 VACCINE (1 of 2) 1977 CERVICAL CANCER SCREENING 1982 BREAST CANCER SCREENING 2011 COLONOSCOPY SCREENING 2011 SHINGLES VACCINES (#1) 2011 INFLUENZA VACCINE 01/28/2020 Implants Implanted Type Area Parer Device Shelf Model / Serial Identifier Expiration / Lot Date Kit Bone Grft Lmbr Tprd 8ml Xxl Infuse - [id number] Human Tissue N/A: [employer] SPINAL 07/30/2018 [id number] / Implanted: Qty: 1 on 02/02/2017 by Raulito Hopkins MD at [facility] Implants N/A AND BIOLOGICS / Chip Canc Allograft Leader Crshd 15cc 0.1-4mm - [id number] Human Tissue Anterio MUSCULOSKELETAL 08/02/2019 [id number] / Implanted: Qty: 1 on 02/02/2017 by Raulito Hopkins MD at [facility] Implants r: TRANSPLANT / Spine, FOUNDATION [id number] Multi-L evel Spacer [id number] Prmtr Xlg 8deg 14mm - [id number] IPM IMPLANT Anterio [employer] 08/01/2022 [id number] / Implanted: Qty: 1 on 02/02/2017 by Raulito Hopkins MD at [facility] DEVICES r: SOFAMOR DANEK / Spine, [id number] Multi-L evel Spacer [id number] Prmtr Lg 12deg 12mm - [id number] IPM IMPLANT Anterio [employer] 02/19/2024 [id number] / Implanted: Qty: 1 on 02/02/2017 by Raluito Hopkins MD at [facility] DEVICES r: SOFAMOR DANEK / Spine, 47CR Multi-L evel Sovereign Fa Screw [id number] 5.5 X 25mm - [id number] IPM IMPLANT Ante lynda [employer] [id number] / Implanted: Qty: 2 on 02/02/2017 by Raulito Hopkins MD at [facility] DEVICES r: SOFAMOR DANEK / Spine, VENDOR LOT NA Multi-L evel Set Screw [id number] 5.5 Ti Ns Brk Off - [id number] IPM IMPLANT Posteri [employer] [id number] / Implanted: Qty: 6 on 02/02/2017 by Raulito Hopkins MD at [facility] DEVICES or: SOFAMOR DANEK / Spine, VENDOR LOT NA Multi-L evel Screw [id number] 5.5 Mas 6.5x50 Cc - [id number] IPM IMPLANT Posteri [employer] [id number] / Implanted: Qty: 4 on 02/02/2017 by Raulito Hopkins MD at [facility] DEVICES or: SOFAMOR DANEK / Spine, VENDOR LOT NA Multi-L evel Screw [id number] 5.5 Mas 6.5x40 Cc - [id number] IPM IMPLANT Posteri [employer] [id number] / Implanted: Qty: 2 on 02/02/2017 by Raulito Hopkins MD at [facility] DEVICES or: SOFAMOR DANEK / Spine, VENDOR LOT NA Sacral Blake [id number] 5.5 Ccm Ns Curv 50mm - [id number] IPM IMPLANT Posteri [employer] [id number] / Implanted: Qty: 2 on 02/02/2017 by Raulito Hopkins MD at [facility] DEVICES or: SOFAMOR DANEK / Spine, VENDOR LOT NA Multi-L evel Washer Bone Grft Ti 17mm - [id number] Orthopedic Anterio [employer] SP INAL [id number] / Implanted: Qty: 2 on 02/02/2017 by Raulito Hopkins MD at [facility] Trauma r: AND BIOLOGICS / Implants Spine, VENDOR LOT NA Multi-L evel Kit Selnt Fibrin Humn [facility] Surgy 5ml Evicel - [id number] Surgica l Posteri [facility] 04/28/2018 [id number] / Implanted: Qty: 1 on 02/02/2017 by Raulito Hopkins MD at [facility] Implants; or: / Expanders; Spine, [id number] Extenders; Multi-L Surgical evel Wires Kit Selnt Fibrin Humn [facility] Surgy 5ml Evicel - [id number] Surgica l Posteri [facility] 04/28/2018 [id number] / Implanted: Qty: 1 on 02/02/2017 by Raulito Hopkins MD at [facility] Implants; or: / Expanders; Spine, [id number] Extenders; Multi-L Surgical evel Wires Results Not on fileafter 08/01/2019 Insurance Payer Benefit Plan / Subscriber ID Effective Dates Phone Addre ss Type Group MEDICARE MEDICARE PART A [id number] 2005-Present [employer] Medicare AND B Advance Directives For more information, please contact: [phone] Type Date Recorded Patient Intermodal Dispatcher Explanati on Advance Directives, 01/30/2017 2:25 PM Living Will and Medical Power of Clinic Manager Advance Directives, 02/06/2017 3:11 PM Living Will and Medical Power of Clinic Manager
--- OUTSIDE RECORDS SUMMARY | 2020-08-01 08:23 | XMS REPORT | Continuity of Care Document ---
:1960 Author Organization [facility] t Address [address] [place] [address] Care Team Providers Name Role Phone Feliciano SLATER Primary Care Physician Pcp, Does Not Have A Attending Clinician Pob1, Care Clinic Attending Clinician Unavailable Problems Condition Condition Condition Status Onset Resolution Last Treating Co mments Source Name Details Category Date Date Treatment Clinician Date Lumbar Lumbar Disease Active [place] degenerati degenerati 02-02 Me thodi ve disc ve disc 00:00: st disease disease 00 Allergies, Adverse Reactions, Alerts Allergy Allergy Status Severity Reaction(s) Onset Inactive Treating Comm ents Source Name Type Date Date Clinician Meperidi Propensi Active GI VOMITTING Aleksandra gonzalez ty to Intolerance 01-30 Metho di adverse 00:00: st reaction 00 s to drug Iodine Propensi Active Rash [place] ty to 01-30 Methodi adverse 00:00: st reaction 00 s to drug Penicill Propensi Active Shortness Of [place] in G ty to Breath, Rash 01-30 Meth dinah adverse 00:00: st reaction 00 s to drug Family History Family Member Diagnosis Comments Start Date Stop Date Source Natural father No Known Problems [facility] Natural mother Diabetes [facility] Social History Social Habit Start Date Stop Date Quantity Comments Source History of Current smoker [facility] tobacco use Sex Assigned At [facility] ethodist Tobacco use and 2017-02-04 2017-02-04 Never used [facility] exposure 00:00:00 00:00:00 Alcohol intake 2017-02-04 2017-02-04 Current [facility] 00:00:00 00:00:00 non-drinker of alcohol (finding) Smoking Status Start Date Stop Date Source Former smoker 2017-02-04 00:00:00 2017-02-04 00:00:00 [facility] Medications Ordered Filled Start Stop Current Ordering [...] on (AMBIEN) 10 7-17 tablet by Met consueloi mg tablet 00:00: mouth as st 00 [...] st 100 mg 00 daily. tablet rOPINIRole 2016- Yes 1{tbl} QD Take 1 Aleksandra ston (REQUIP) 6-14 tablet by Method i 0.5 MG 00:00: mouth st tablet 00 daily. atorvastati 2017-0 Yes 1{tbl} QD Take 1 [place] (LIPITOR) 6-14 tablet by Met hodi 10 MG 00:00: mouth st tablet 00 daily. Procedures This patient has no known procedures. Plan of Care Planned Activity Planned Date Details Comments Source Future Scheduled 2020-01-28 INFLUENZA VACCINE [place] [facility] Test 00:00:00 [code = INFLUENZA VACCINE] Future Scheduled 2011 BREAST CANCER [facility]ist Test 00:00:00 SCREENING [code = BREAST CANCER SCREENING] Future Scheduled 2011 COLONOSCOPY SCREENING [place] [facility] Test 00:00:00 [code = COLONOSCOPY SCREENING] Future Scheduled 2011 SHINGLES VACCINES [place] [facility] Test 00:00:00 (#1) [code = SHINGLES VACCINES (#1)] Future Scheduled 1982 Screening for [facility] Test 00:00:00 malignant neoplasm of cervix (procedure) [code = 925624587] Future Scheduled 1977 COVID-19 VACCINE (1 [place] [facility] Test 00:00:00 of 2) [code = COVID-19 VACCINE (1 of 2)] Encounters Start End Encounter Admission Attending Care Care Encounter Source Date/Time Date/Time Type Type Clinicians Facility Department ID 2019-11-11 2019-11-11 Telephone Pcp, [facility] [id number] 00:00:00 00:00:00 Patient Health [id number] Does Not Surgical [id number] Have A Specialti [id number] es [address] [place] 2019-11-09 2019-11-09 Urgent Pob1, Acute [facility] [id number] 14:10:27 14:50:22 Care Care Clinic Health [id number] [place] [id number] Professio [phone] nal [address] One Results This patient has no known results.
[2020-08-01] MEDS ORDERED: FAMOTIDINE 20 MG/2 ML VIAL IV ONE (08:58)
[2020-08-01] MEDS ORDERED: NA CHLORIDE 0.9% 500 ML ONE (08:58)
[2020-08-01] MEDS ORDERED: ONDANSETRON 4 MG/2 ML VIAL ONE (08:58)
[2020-08-01] MEDS ORDERED: MORPHINE 4 MG/ML SYR ONE (09:05)
[2020-08-01 09:27] LABS: Absolute Lymphocytes (CBC) 0.8 K/uL (0.7-4.9); Basophils % 0.1 % (0-1.3); Hematocrit 41.1 % (36.0-45.0); Lymphocytes % 14.2 % (15.3-44.8); MPV 7.9 fL (7.6-11.3); RBC Red Blood Cell Count 4.86 M/uL (3.86-4.86)
[2020-08-01 09:40] LABS: Albumin 4.2 g/dL (3.4-5.0); Bilirubin Direct 0.1 mg/dL (0-0.2); Bilirubin Total 0.4 mg/dL (0.2-1.0); Potassium 3.2 mmol/L (3.5-5.1); Protein, Total 7.6 g/dL (6.4-8.2)
--- NOTE | 2020-08-01 09:42 | RAD REPORT ---
EXAM DESCRIPTION: CTAbdomen Pelvis W Contrast - 08/01/2020 9:32 am CLINICAL HISTORY: Abdominal pain. Abd pain;Pain;Epigastric pain COMPARISON: Abdomen Pelvis W Contrast dated 12/09/2019; Abdomen Pelvis W Contrast dated 09/30/2017; Abdomen Pelvis W Contrast dated 07/09/2016; Abdomen Pelvis W Contrast dated 11/23/2015 TECHNIQUE: Biphasic CT imaging of the abdomen and pelvis was performed with 100 ml non-ionic IV cont rast. All CT scans are performed using dose optimization technique as appropriate and may include automated exposure control or mA/KV adjustment according to patient size. FINDINGS: The lung bases are clear.Small hiatal hernia. Mild diffuse fatty liver is seen. Cholecystectomy clips. The spleen, pancreas, adrenal glands and kid neys are within normal limits. No bowel obstruction, free air, free fluid or abscess. Moderate stool is present throughout the colon with numerous diverticula noted. Appendectomy. No evidence of significant lymphadenopathy. Lumbar hardware is present. IMPRESSION: Mild diffuse fatty liver is present. Moderate stool is present throughout the colon.
[2020-08-01] MEDS ORDERED: POTASSIUM CL SA 10 MEQ TAB PO ONE (10:39)
--- NOTE | 2020-08-01 12:58 | EDPHYS ---
Physician Documentation [facility] Name: Oneida Lea Age: 60 yrs Sex: Female : 1960 Arrival Date: 08/01/2020 Time: 08:18 Bed 4 Private MD: ED Physician Francisco Enriquez HPI: 08/01 08:48 This 60 yrs old Female presents to ER via Wheelchair with complaints of kdr Abdominal Pain, Vomiting/Diarrhea. 08:48 The patient presents to the emergency department with nausea, that is mild, vomiting, kdr that is intermittent, diarrhea, that is intermittent, abdominal pain, of the epigastric area and right lower quadrant, described as achy, burning, crampy, vague,\E\ waxing and waning, and does not radiate. Onset: The symptoms/episode began/occurred suddenly, this morning. Possible causes: flare up of bowel problem, Diverticulitis. The symptoms are aggravated by nothing. The symptoms are alleviated by nothing. Associated signs and symptoms: Pertinent positives: abdominal pain, diarrhea, nausea, vomiting. Severity of symptoms: At their worst the symptoms were moderate in the emergency department the symptoms are unchanged Pain is currently a / 10. The patient has experienced similar episodes in the past, several times, with the last episode occurring last year. The patient has not recently seen a physician. Historical: - Allergies: 08:34 Demerol; sv 08:34 PENICILLINS; sv 08:34 topical iodine; sv - PMHx: 08:34 Anxiety; High Cholesterol; Depression; Chronic pain; Diverticulitis; Hypertension; sv - PSHx: 08:34 Hysterectomy; Cholecystectomy; Appendectomy; Tonsillectomy; spinal fusion; back surgery;sv - Immunization history:: Adult Immunizations up to date. - Social history:: Smoking status: Patient denies any tobacco usage or history of. ROS: 08:48 Constitutional: Negative for fever, chills, and weight loss, Eyes: Negative for injury, kdr pain, redness, and discharge, ENT: Negative for injury, pain, and discharge, Neck: Negative for injury, pain, and swelling, Cardiovascular: Negative for chest pain, palpitations, and edema, Respiratory: Negative for shortness of breath, cough, wheezing, and pleuritic chest pain, Back: Negative for injury and pain, : Negative for injury, bleeding, discharge, and swelling, MS/Extremity: Negative for injury and deformity, Skin: Negative for injury, rash, and discoloration, Neuro: Negative for headache, weakness, numbness, tingling, and seizure activity. Psych: Negative for depression, anxiety, suicide ideation, homicidal ideation, and hallucinations, Allergy/Immunology: Negative for hives, rash, and allergies, Endocrine: Negative for neck swelling, polydipsia, polyuria, polyphagia, and marked weight changes, Hematologic/Lymphatic: Negative for swollen nodes, abnormal bleeding, and unusual bruising. 08:48 Abdomen/GI: Positive for abdominal pain, nausea and vomiting, nausea, vomiting, and diarrhea, abdominal cramps, Negative for hematemesis, black/tarry stool, rectal pain, rectal bleeding. Exam: 08:48 Constitutional: This is a well developed, well nourished patient who is awake, alert, kdr and in mild distress. Head/Face: Normocephalic, atraumatic. Eyes: Pupils equal round and reactive to light, extra-ocular motions intact. Lids and lashes normal. Conjunctiva and sclera are non-icteric and not injected. Cornea within normal limits. Periorbital areas with no swelling, redness, or edema. Neck: Trachea midline, no thyromegaly or masses palpated, and no cervical lymphadenopathy. Supple, full range of motion without nuchal rigidity, or vertebral point tenderness. No Meningismus. Chest/axilla: Normal chest wall appearance and motion. Nontender with no deformity. No lesions are appreciated. Cardiovascular: Regular rate and rhythm with a normal S1 and S2. No gallops, murmurs, or rubs. Normal PMI, no JVD. No pulse deficits. Respiratory: Lungs have equal breath sounds bilaterally, clear to auscultation and percussion. No rales, rhonchi or wheezes noted. No increased work of breathing, no retractions or nasal flaring. Back: No spinal tenderness. No costovertebral tenderness. Full range of motion. Skin: Warm, dry with normal turgor. Normal color with no rashes, no lesions, and no evidence of cellulitis. MS/ Extremity: Pulses equal, no cyanosis. Neurovascular intact. Full, normal range of motion. Neuro: Awake and alert, GCS 15, oriented to person, place, time, and situation. Cranial nerves II-XII grossly intact. Motor strength 5/5 in all extremities. Sensory grossly intact. Cerebellar exam normal. Normal gait. Psych: Awake, alert, with orientation to person, place and time. Behavior, mood, and affect are within normal limits. 08:48 Abdomen/GI: Inspection: obese Bowel sounds: active, diminished, in all quadrants, Palpation: soft, mild abdominal tenderness, in all quadrants. 19:00 ECG was reviewed by the Attending Physician. kdr Vital Signs: 08:35 BP 178 / 110; Pulse 108; Resp 20; Temp 97.0(TE); Pulse Ox 98% on R/A; Weight 90.72 kg; em1 Height 5 ft. 4 in. (162.56 cm); Pain 7/10; 11:59 BP 137 / 84; Pulse 94; Resp 18; Temp 97.2; Pulse Ox 99% on R/A; em1 08:35 Body Mass Index 34.33 (90.72 kg, 162.56 cm) em1 MDM: 12:58 Patient medically screened. kdr 14:57 Data reviewed: vital signs, nurses notes, lab test result(s), radiologic studies. kdr Counseling: I had a detailed discussion with the patient and/or guardian regarding: the historical points, exam findings, and any diagnostic results supporting the discharge/admit diagnosis, lab results, radiology results, the need for outpatient follow up. 08/01 08:34 Order name: Basic Metabolic Panel; Complete Time: 10:11 kdr 08/01 08:34 Order name: CBC with Diff; Complete Time: 09:32 kdr 08/01 08:34 Order name: Hepatic Function; Complete Time: 10:11 kdr 08/01 08:34 Order name: Lipase; Complete Time: 10:11 kdr 08/01 11:49 Order name: Troponin (emerg Dept Use Only) kdr 08/01 11:49 Order name: Troponin (Emerg Dept Use Only); Complete Time: 12:56 EDMS 08/01 08:34 Order name: IV Saline Lock; Complete Time: 09:06 kdr 08/01 08:35 Order name: Labs collected and sent; Complete Time: 09:06 kdr 08/01 08:45 Order name: CT Abd/Pelvis - IV Contrast Only; Complete Time: 10:11 kdr 08/01 10:12 Order name: PO challenge; Complete Time: 10:26 kdr 08/01 11:49 Order name: EKG - Nurse/Tech; Complete Time: 11:59 kdr EC:00 Rate is 77 beats/min. Rhythm is regular, Normal Sinus Rhythm with No ectopy. QRS [place] kdr is Normal. CT interval is normal. QRS interval is normal. QT interval is normal. Clinical impression: Normal ECG. Administered Medications: 09:02 Drug: Zofran (Ondansetron) 4 mg Route: IVP; Site: right wrist; ss 10:21 Follow up: Response: No adverse reaction; Nausea is decreased ss 09:02 Drug: NS 0.9% 500 ml Route: IV; Rate: bolus; Site: right wrist; ss 09:03 Drug: Pepcid 20 mg Route: IVP; Site: right wrist; ss 10:21 Follow up: Response: No adverse reaction; Marked relief of symptoms ss 09:05 Drug: morphine 4 mg Route: IVP; Site: right wrist; ss 10:21 Follow up: Response: No adverse reaction; Pain is decreased ss 10:26 Drug: Potassium Chloride 40 mEq Route: PO; ss 12:39 Follow up: Response: No adverse reaction ss Disposition: 08/01/20 12:58 Discharged to Home. Impression: Abdominal and pelvic pain, Nausea. - Condition is Stable. - Discharge Instructions: Nausea and Vomiting, Adult, [id number], Abdominal Pain, Adult, [id number]. - Prescriptions for Pepcid 20 mg Oral Tablet - take 1 tablet by ORAL route every 12 hours for 5 days; 10 tablet. Zofran 4 mg Oral Tablet - take 16 tablets by ORAL route every 4-6 hours As needed; 16 tablet. Tramadol 50 mg Oral Tablet - take 1 tablet by ORAL route every 8 hours as needed; 12 tablet. - Medication Reconciliation Form, Thank You Letter, Prescription Opioid Use form. - Follow up: Private Physician; When: 2 - 3 days; Reason: If symptoms return, Further diagnostic work-up, Recheck today's complaints, Continuance of care, Re-evaluation by your physician. - Problem is new. - Symptoms have improved. Signatures: Dispatcher [employer] Martha Schreiber RN RN sv Rittger, Kevin, MD MD kdr Smirch, Shelby, RN RN ss Baxter, Heather, RN RN Corrections: (The following items were deleted from the chart) 13:14 12:58 08/01/2020 12:58 Discharged to Home. Impression: Abdominal and pelvic pain; hb Nausea. Condition is Stable. Forms are Medication Reconciliation Form, Thank You Letter, Antibiotic Education, Prescription Opioid Use. Follow up: Private Physician; When: 2 - 3 days; Reason: If symptoms return, Further diagnostic work-up, Recheck today's complaints, Continuance of care, Re-evaluation by your physician. Problem is new. Symptoms have improved. kdr
--- NOTE | 2020-08-01 12:58 | ER ---
Nurse's Notes [facility] Name: Oneida Lea Age: 60 yrs Sex: Female : 1960 Arrival Date: 08/01/2020 Time: 08:18 Bed 4 Private MD: Diagnosis: Abdominal and pelvic pain;Nausea Presentation: 08/01 08:33 Chief complaint: Patient states: epigastric pain, n/v started this morning. Risk sv Assessment: Do you want to hurt yourself or someone else? Patient reports no desire to harm self or others. Onset of symptoms was August 01, 2020. 08:33 Method Of Arrival: Wheelchair sv 08:33 Acuity: CINTHYA 3 sv 09:00 Coronavirus screen: Client presents with at least one sign or symptom that may indicate hb coronavirus-19. Standard/surgical mask placed on the client. Provider contacted for isolation considerations. Ebola Screen: No symptoms or risks identified at this time. 09:00 Initial Sepsis Screen: Does the patient meet any 2 criteria? No. Patient's initial hb sepsis screen is negative. Does the patient have a suspected source of infection? No. Patient's initial sepsis screen is negative. Historical: - Allergies: 08:34 Demerol; sv 08:34 PENICILLINS; sv 08:34 topical iodine; sv - PMHx: 08:34 Anxiety; High Cholesterol; Depression; Chronic pain; Diverticulitis; Hypertension; sv - PSHx: 08:34 Hysterectomy; Cholecystectomy; Appendectomy; Tonsillectomy; spinal fusion; back surgery;sv - Immunization history:: Adult Immunizations up to date. - Social history:: Smoking status: Patient denies any tobacco usage or history of. Screenin:30 Abuse screen: Denies threats or abuse. Denies injuries from another. Nutritional ss screening: No deficits noted. Tuberculosis screening: Never had TB. Fall Risk None identified. Assessment: 08:30 General: Appears uncomfortable, Behavior is calm, cooperative, Reports feeling ill for ss since this morning. Denies fever. Neuro: Level of Consciousness is awake, alert, obeys commands, Oriented to person, place, time, situation, [employer] Representative Door To Door are equal bilaterally Moves all extremities. Full function Gait is steady, Speech is normal, Facial symmetry appears normal. Cardiovascular: Capillary refill < 3 seconds is brisk in bilateral fingers. Respiratory: Airway is patent Trachea midline Respiratory effort is even, unlabored, Respiratory pattern is regular, symmetrical, Denies cough, shortness of breath pain with respiration, pain with cough, pain with movement. GI: Bowel sounds present X 4 quads. Abd is soft and non tender X 4 quads. Reports diarrhea, nausea, vomiting, since this morning. : No signs and/or symptoms were reported regarding the genitourinary system. Denies burning with urination, urinary frequency. EENT: Oral mucosa is moist. Derm: Skin is intact, is healthy with good turgor, Skin is dry, Skin is pink, warm \T\ dry. normal. Musculoskeletal: Circulation, motion, and sensation intact. Range of motion: intact in all extremities, Swelling absent. 09:08 Reassessment: Pt to CT now VIA stretcher. ss 10:21 Reassessment: Patient appears in no apparent distress at this time. Patient and/or ss family updated on plan of care and expected duration. Pain level reassessed. Patient is alert, oriented x 3, equal unlabored respirations, skin warm/dry/pink. Patient states feeling better. Patient states symptoms have improved. Pain: Complains of pain in abdomen Pain currently is 3 out of 10 on a pain scale. 11:30 Reassessment: Patient appears in no apparent distress at this time. Patient and/or hb family updated on plan of care and expected duration. Pain level reassessed. Patient is alert, oriented x 3, equal unlabored respirations, skin warm/dry/pink. 12:12 Reassessment: Patient appears in no apparent distress at this time. Patient and/or hb family updated on plan of care and expected duration. Pain level reassessed. Patient is alert, oriented x 3, equal unlabored respirations, skin warm/dry/pink. Patient states symptoms have improved. 13:00 Reassessment: Patient appears in no apparent distress at this time. Patient and/or hb family updated on plan of care and expected duration. Pain level reassessed. Patient is alert, oriented x 3, equal unlabored respirations, skin warm/dry/pink. Patient states feeling better. Patient states symptoms have improved. Vital Signs: 08:35 BP 178 / 110; Pulse 108; Resp 20; Temp 97.0(TE); Pulse Ox 98% on R/A; Weight 90.72 kg; em1 Height 5 ft. 4 in. (162.56 cm); Pain 7/10; 11:59 BP 137 / 84; Pulse 94; Resp 18; Temp 97.2; Pulse Ox 99% on R/A; em1 08:35 Body Mass Index 34.33 (90.72 kg, 162.56 cm) em1 ED Course: 08:18 Patient arrived in ED. mr 08:30 Patient has correct armband on for positive identification. night monitor on. Pulse ss ox on. NIBP on. Warm blanket given. 08:33 Francisco Enriquez MD is Attending Physician. kdr 08:33 Triage completed. sv 08:34 Arm band placed on. sv 08:53 Missed attempt(s): 20 gauge in right antecubital area. Bleeding controlled, band aid em1 applied, catheter tip intact. 09:07 Inserted saline lock: 20 gauge in right wrist, using aseptic technique. Blood collected.ss 09:32 CT Abd/Pelvis - IV Contrast Only In Process Unspecified. EDMS 10:20 Mary Jane Broussard, MAGGI is Primary Nurse. ss 11:59 EKG done, by ED staff, reviewed by Francisco Enriquez MD. em1 12:30 Troponin (emerg Dept Use Only) Sent. sv 13:13 No provider procedures requiring assistance completed. IV discontinued, intact, hb bleeding controlled, No redness/swelling at site. Administered Medications: 09:02 Drug: Zofran (Ondansetron) 4 mg Route: IVP; Site: right wrist; ss 10:21 Follow up: Response: No adverse reaction; Nausea is decreased ss 09:02 Drug: NS 0.9% 500 ml Route: IV; Rate: bolus; Site: right wrist; ss 09:03 Drug: Pepcid 20 mg Route: IVP; Site: right wrist; ss 10:21 Follow up: Response: No adverse reaction; Marked relief of symptoms ss 09:05 Drug: morphine 4 mg Route: IVP; Site: right wrist; ss 10:21 Follow up: Response: No adverse reaction; Pain is decreased ss 10:26 Drug: Potassium Chloride 40 mEq Route: PO; ss 12:39 Follow up: Response: No adverse reaction ss Outcome: 12:58 Discharge ordered by . kdr 13:13 Discharged to home ambulatory. hb 13:13 Condition: stable 13:13 Discharge instructions given to patient, Instructed on discharge instructions, follow up and referral plans. medication usage, Demonstrated understanding of instructions, follow-up care, medications, Prescriptions given X 3. 13:14 Patient left the ED. hb Signatures: Dispatcher [employer] EDMartha Hargrove, RN RN Francisco Beasley MD MD kdr Rivera, Jayda mr Teo, Howard em1 Mary Jane Broussard RN RN ss Baxter, Heather, RN RN hb
[2020-08-01 13:21] VITALS: BP 137/84; TEMP 97.2; O2SAT 99
== END 2020-08-01 13:14 | disposition home or self-care (01) ==
LOC: ER 08:14
DX: R10.2 Pelvic and perineal pain (principal); R11.0 Nausea; I10 Essential (primary) hypertension; Z88.0 Allergy status to penicillin; Z88.5 Allergy status to narcotic agent; Z91.048 Other nonmedicinal substance allergy status
CPT/HCPCS: 93005; 85025; 80048; 36415; 82565; 80076; 84484; 83690; 74177; 96375; 96374; 99284; Q9967; J7040; J2405

== ENCOUNTER 2021-06-13 12:14 | Day surgery (SDC) | payer OTHER ==
[2021-06-12 10:53] LABS: Absolute Lymphocytes (CBC) 1.7 K/uL (0.7-4.9); Basophils % 0.7 % (0-1.3); Hematocrit 37.8 % (36.0-45.0); Lymphocytes % 29.1 % (15.3-44.8); MPV 7.7 fL (7.6-11.3); RBC Red Blood Cell Count 4.32 M/uL (3.86-4.86)
[2021-06-12 10:55] LABS: Protime INR 0.95
--- NOTE | 2021-06-12 11:09 | RAD REPORT ---
EXAM DESCRIPTION: RAD - Chest Pa And Lat (2 Views) - 06/12/2021 10:52 am CLINICAL HISTORY: Pre Op pending heart catheterization COMPARISON: Chest Single View dated 11/23/2015; CHEST SINGLE VIEW dated 12/06/2012; CHEST PA AND LAT 2 VIEW dated 08/27/2012; CHEST PA AND LAT 2 VIEW dated 02/09/2007 FINDINGS: Lines: None. Lungs: No evidence of edema or pneumonia. Pleural: No significant pleural effusions or pneumothorax. Cardiac: The heart size is within normal limits. Bones: No acute fractures. Other: IMPRESSION: No acute cardiopulmonary disease.
[2021-06-12 12:34] LABS: Potassium 3.7 mmol/L (3.5-5.1)
[2021-06-13] MEDS ORDERED: NA CHLORIDE 0.9% 500 ML ONE (12:16)
[2021-06-13] MEDS ORDERED: FENTANYL CITR 100 MCG/2 ML ONE (13:46)
[2021-06-13] MEDS ORDERED: HEPA 1000U/500MLS 2,000 UNIT/1,000 ML BAG IV ONE (13:46)
[2021-06-13] MEDS ORDERED: MIDAZOLAM HCL 2 MG/2 ML INJ ONE (13:46)
[2021-06-13] MEDS ORDERED: VERAPAMIL HCL 10 MG/4 ML VIAL IV ONE (13:47)
[2021-06-13] MEDS ORDERED: HEPARIN 5000 UNIT/ML 1 ML VIAL ONE (13:47)
[2021-06-13] MEDS ORDERED: NITROGLYCERIN 100 MCG/ML SYR (for cath lab use only) IV ONE (13:47)
[2021-06-13] MEDS ORDERED: ATROPINE SULF 1 MG/10 ML SYR IV ONE (13:47)
[2021-06-13] MEDS ORDERED: DIPHENHYDRAMINE 50 MG/ML VIAL ONE (14:42)
--- NOTE | 2021-06-13 15:14 | OP ---
Date of Procedure: 06/13/2021 Surgeon: ABHAY HERNANDEZ Procedure Performed: 1.Selective coronary angiogram. 2.Left heart catheterization. Access: Right radial artery 6-[place] closed with TR band. Complications: None. Bleeding: Less than 10 mL. Anesthesia: Total sedation time was 15 minutes. Description Of Procedure: After risks, benefits, and alternatives were explained, the patient agreed to procedure and signed informed consent. The patient was brought in the cardiac catheterization la boratory, prepped and draped in usual sterile fashion. Then, I accessed right radial artery using p Geosho micropuncture kit and a 6-[place] slender sheath and took 5-[place] 4.0 catheter into th e aortic root over a J-wire, engaged left main and right coronary artery, took standard views and cat heter was advanced across aortic valve into the LV. LVEDP was recorded and pullback did not record a ny gradient. Then catheter was removed. Sheath was removed. TR band was placed with good hemostasi s. Findings: 1.Left main is large and normal. 2.LAD; moderate-sized vessel with mid 20% disease. Diagonal branches are normal. 3.Left circumflex is normal. 4.RCA is large dominant and normal. 5.LVEDP of 7 mmHg, which is normal. Conclusion: 1.Mild nonobstructive coronary artery disease. 2.Normal LVEDP. Plan: Medical management. /FLORL Voice ID: [id number] Report ID: [id number]
[2021-06-13 16:31] VITALS: TEMP 97.6
[2021-06-13 16:32] VITALS: O2SAT 99
[2021-06-13 17:14] VITALS: BP 136/70
== END 2021-06-13 17:05 | disposition home or self-care (01) ==
LOC: CCL 12:14
PROVIDERS: ATTEND Internal Medicine
DX: I25.110 Atherosclerotic heart disease of native coronary artery with unstable angina pectoris (principal); I10 Essential (primary) hypertension; E78.5 Hyperlipidemia, unspecified; Z20.822 Contact with and (suspected) exposure to COVID-19; Z88.0 Allergy status to penicillin; Z88.8 Allergy status to other drugs, medicaments and biological substances; Z91.041 Radiographic dye allergy status
CPT/HCPCS: 85025; 80048; 36415; 85610; 85730; 71046; 93458; U0003; C1893; J1644 ×2; J2250; J3010; J7040; J1200

== ENCOUNTER 2022-03-10 09:24 | Emergency (ER) | payer OTHER ==
--- OUTSIDE RECORDS SUMMARY | 2022-03-10 09:27 | XMS REPORT | Continuity of Care Document ---
:1960 Author Organization [facility] t Address [address] [place] [address] Care Team Providers Name Role Phone Kevon Wiggins MD Primary Care Physician [phone] Pcp, Patient Does Not Have A Attending Clinician [phone] Pob1, Acute Care Clinic Attending Clinician Unavailable Maggi Gonzalez Attending Clinician Problems Condition Condition Condition Status Onset Resolution Last Treating Co mments Source Name Details Category Date Date Treatment Clinician Date Acute URI Acute URI Disease Active 2020-0 Uni vers 5-13 ity of 00:00: [place] 00 [facility] [place] Cough Cough Disease Active 2020-0 Univers 5-13 ity of 00:00: [place] 00 [facility] Branch Lumbar Lumbar Disease Active 2017-0 Methodi degenerati degenerati 8-07 st ve disc ve disc 00:00: Hospita disease disease 00 l Allergies, Adverse Reactions, Alerts Allergy Allergy Status Severity Reaction(s) Onset Inactive Treating Comm ents Source Name Type Date Date Clinician Meperidi Propensi Active Nausea 2020-0 Univer s ne Hcl ty to and/or 5-13 ity of adverse Vomiting 00:00: [place] reaction 00 Medical s Branch Penicill Propensi Active Anaphylaxis 2020-0 U nivers ins ty to 5-13 ity of adverse 00:00: [place] reaction 00 Medical s to Branch drug PENICILL Drug Active High Anaphylaxis 2020-0 Uni vers INS Class - ity of 00:00: 00 Medical Branch MEPERIDI DRUG Active N/V Univers NE HCL INGREDI 11-08 ity of 00:00: 00 [facility] Meperidi Propensi Active GI VOMITTING Met hodi ne ty to Intolerance 01-30 adverse 00:00: Hospita reaction 00 l s to drug Iodine Propensi Active Rash Methodi ty to 01-30 adverse 00:00: Hospita reaction 00 l s to drug Penicill Propensi Active Rash Method i in G ty to 01-30 adverse 00:00: Hospita reaction 00 l s to drug NO KNOWN Drug Active Univers ALLERGIE Class ity of S [facility] Family History Family Member Diagnosis Comments Start Date Stop Date Source Natural father No Known Problems Met [facility] Natural mother Diabetes [facility] Social History Social Habit Start Date Stop Date Quantity Comments Source History of Current smoker [facility] tobacco use Hospital Alcohol intake 2017-02-04 2017-02-04 Current [facility]que 00:00:00 00:00:00 non-drinker of Hospital alcohol (finding) Tobacco use and 2017-01-30 2017-01-30 Smokeless tobacco [facility] exposure 00:00:00 00:00:00 non-user Hospital Sex Ass[birth year] At [birth year] [facility] 00:00:00 00:00:00 Hospital Smoking Status Start Date Stop Date Source Former smoker 2019-11-09 00:00:00 2019-11-09 00:00:00 [facility] Medications Ordered Filled Start Stop Current Ordering Indication Dosage Frequency Signature Comments Components Source Medication Medication Date Date Medication? Clinician (SIG) Name Name paroxetine Yes Take by Univ ers HCl (PAXIL 5-13 mouth. ity of ORAL) 19:32: [address] lamotrigine Yes Take by Uni vers (LAMICTAL 5-13 mouth. ity of ORAL) 19:32: [address] paroxetine Yes Take by Univ ers HCl (PAXIL 5-13 mouth. ity of ORAL) 19:32: [address] lamotrigine Yes Take by Uni vers (LAMICTAL 5-13 mouth. ity of ORAL) 19:32: [place] 12 [facility] Branch tramadol 2020-0 Yes Take by Univer s HCl 5-13 mouth. ity of (TRAMADOL 19:30: [place] ORAL) 56 Medical Branch tramadol 2020-0 Yes Take by Univer s HCl 5-13 mouth. ity of (TRAMADOL 19:30: [place] ORAL) 56 Medical Branch HYDROCODONE 2020-0 Yes Take by Uni vers -ACETAMINOP 5-13 mouth. ity of HEN ORAL 19:30: [place] 33 [facility] Branch HYDROCODONE 2020-0 Yes Take by Uni vers -ACETAMINOP 5-13 mouth. ity of HEN ORAL 19:30: [place] 33 [facility] Branch atorvastati 2020-0 Yes Take by Uni vers n calcium 5-13 mouth. ity of (ATORVASTAT 19:30: [place] IN ORAL) 32 Medical Branch pregabalin 2020-0 Yes Take by Univ ers (LYRICA 5-13 mouth. ity of ORAL) 19:30: [place] [address] Medical Branch atorvastati 2020-0 Yes Take by Uni vers n calcium 5-13 mouth. ity of (ATORVASTAT 19:30: [place] IN ORAL) 32 Medical Branch pregabalin 2019-0 Yes Take by Univ ers (LYRICA 5-13 mouth. ity of ORAL) 19:30: [place] [address] Medical Branch valsartan 2020-0 Yes Take by Unive rs (DIOVAN 5-13 mouth. ity of ORAL) 19:29: [place] [id number] Medical Branch cyclobenzap 2020-0 Yes Take by Uni vers rine HCl 5-13 mouth. ity of (FLEXERIL 19:29: [place] ORAL) 59 Medical Branch METOPROLOL 2020-0 Yes Take by Univ ers TARTRATE 5-13 mouth. ity of ORAL 19:29: [place] 59 [facility] Branch valsartan 2020-0 Yes Take by Unive rs (DIOVAN 5-13 mouth. ity of ORAL) 19:29: [place] 59 [facility] Branch cyclobenzap 2020-0 Yes Take by Uni vers rine HCl 5-13 mouth. ity of (FLEXERIL 19:29: [place] ORAL) 59 Medical Branch METOPROLOL 2020-0 Yes Take by Univ ers TARTRATE 5-13 mouth. ity of ORAL 19:29: [place] 59 Medical Branch azithromyci 2020-0 Yes [id number] 250mg Take 1 Univers n 250 mg 5-13 tablet by ity of tablet 00:00: mouth [place] 00 daily. Medical Take 500 Branch mg day 1, then 250 mg days 2 to 5. azithromyci 2019-0 Yes [id number] 250mg Take 1 Univers n 250 mg 5-13 tablet by ity of tablet 00:00: mouth [place] 00 daily. Medical Take 500 Branch mg day 1, then 250 mg days 2 to 5. dicyclomine Yes 10mg Q.25D Take 10 mg Methodi (BENTYL) 10 8-[address] MG capsule 19:59: (four) Hospi ta 50 times a l day before meals and nightly. esomeprazol Yes 20mg QD Take 20 mg Methodi e (NexIUM) 8-[address] 20 MG 19:59: daily Hospita capsule 50 before l breakfast. methocarbam Yes Take 1 Meth dinah ol 8-[address] (ROBAXIN-75 00:00: every 6 Hos eber 0) 750 MG 00 hours as l tablet needed for spasms HYDROcodone Yes 1{tbl} Q4H Take 1 Me thodi -acetaminop 7-[address] hen (NORCO) 00:00: mouth Hospi ta 7.5-325 mg 00 every 4 l per tablet (four) hours as needed. zolpidem Yes 1{tbl} Take 1 Metho di (AMBIEN) 10 7-[address] mg tablet 00:00: mouth as Hosp nova 00 needed. l valsartan Yes 160mg QD Take 160 Met hodi (DIOVAN) 7-[address] 160 MG 00:00: mouth Hospita tablet 00 daily. l PARoxetine Yes 40mg QD Take 40 mg M ethodi (PAXIL) 40 6-[address] MG tablet 00:00: daily. Hospit a 00 l metoprolol Yes 1{tbl} QD Take 1 Met hodi tartrate 6-[address] (LOPRESSOR) 00:00: mouth Hospi ta 100 mg 00 daily. l tablet rOPINIRole Yes 1{tbl} QD Take 1 Met hodi (REQUIP) 6-[address] 0.5 MG 00:00: mouth Hospita tablet 00 daily. l atorvastati 2017-0 Yes 1{tbl} QD Take 1 Me thodi n (LIPITOR) 6-[address] 10 MG 00:00: mouth Hospita tablet 00 daily. l Vital Signs Vital Name Observation Time Observation Value Comments Source Systolic blood 2019-11-09 19:24:00 166 mm[Hg] Univer sity of pressure [facility] Diastolic blood 2019-11-09 19:24:00 91 mm[Hg] Unive rsity of pressure [facility] Heart rate 2019-11-09 19:17:00 88 /min Universi ty of [facility] Body temperature 2019-11-09 19:17:00 37 Luda [facility] ersity [facility] Respiratory rate 2019-11-09 19:17:00 18 /min Univ ersity [facility] Body height 2019-11-09 19:17:00 162.6 cm Universi ty of [facility] Body weight 2019-11-09 19:17:00 90.719 kg Universi ty of [facility] BMI 2019-11-09 19:17:00 34.33 kg/m2 Universi ty of [place] [facility] [place] Oxygen saturation in 2019-11-09 19:17:00 98 /min University of Arterial blood by [facility] Pulse oximetry Branch Systolic blood 2019-11-09 19:24:00 166 mm[Hg] Univer sity of [facility] Diastolic blood 2019-11-09 19:24:00 91 mm[Hg] Unive rsity of [facility] Heart rate 2019-11-09 19:17:00 88 /min Universi ty of [facility] Body temperature 2019-11-09 19:17:00 37 [place] [facility] ersity [facility] Respiratory rate 2019-11-09 19:17:00 18 /min Univ ersity [facility] Body height 2019-11-09 19:17:00 162.6 cm Universi ty of [place] [facility] [place] Body weight 2019-11-09 19:17:00 90.719 kg Universi ty of [place] [facility] [place] BMI 2019-11-09 19:17:00 34.33 kg/m2 Universi ty of [place] [facility] [place] Oxygen saturation in 2019-11-09 19:17:00 98 /min University of Arterial blood by [facility] Pulse oximetry Branch Procedures Procedure Date / Time Performed Performing Clinician Sourc e POCT GRP A STREP 2019-11-09 19:26:00 Maggi Nelson [facility] ([facility]) [facility] Plan of Care Planned Activity Planned Date Details Comments Source Future Scheduled 2022-02-27 HEPATITIS B VACCINES Met [facility] Test 04:27:28 (1 of 3 - 3-dose series) [code = HEPATITIS B VACCINES (1 of 3 - 3-dose series)] Future Scheduled 2022-02-27 COVID-19 VACCINE (#1) [facility] Test 04:27:28 [code = COVID-19 VACCINE (#1)] Future Scheduled 2022-02-27 Screening for [facility] Test 04:27:28 malignant neoplasm of cervix (procedure) [code = 979273136] Future Scheduled 2022-02-27 BREAST CANCER [facility] Test 04:27:28 SCREENING [code = BREAST CANCER SCREENING] Future Scheduled 2022-02-27 COLONOSCOPY SCREENING [facility] Test 04:27:28 [code = COLONOSCOPY SCREENING] Future Scheduled 2022-02-27 SHINGLES VACCINES (1 Met [facility] Test 04:27:28 of 2) [code = SHINGLES VACCINES (1 of 2)] Future Scheduled 2022-02-27 INFLUENZA VACCINE Method [facility] Test 04:27:28 [code = INFLUENZA VACCINE] Encounters Start End Encounter Admission Attending Care Care Encounter Source Date/Time Date/Time Type Type Clinicians Facility Department ID 2019-11-11 2019-11-11 Telephone Pcp, [facility] [id number] Univers 00:00:00 00:00:00 Patient Health [id number] it y of Does Not Surgical [id number] Have A Specialti [phone] Ak dical es [address] [place] 2019-11-11 2019-11-11 Telephone Pcp, [facility] [id number] 00:00:00 00:00:00 Patient Health [id number] Does Not Surgical [id number] Have A Specialti [phone] es [address] [place] 2019-11-09 2019-11-09 Urgent Pob1, Acute Care Clinic [facility] [id number] Univers 14:10:27 14:50:22 Care Maggi Nelson [facility] [id number] [facility] [id number] Maxim[place] as Professio [phone] Ak dical [address] 2019-11-09 2019-11-09 Urgent Pob1, Acute [facility] [id number] 14:10:27 14:50:22 Care [facility] [id number] [place] [id number] Professio [phone] [place] [address] [address] 2019-11-09 2019-11-09 Outpatient R [facility] [id number] Univers 14:00:00 14:00:00 [facility] Results Test Description Test Time Test Comments Results Result Comments Source POCT GRP A STREP (MOLECULAR) 2019-11-09 19:36:00 Test Item Value Reference Range Interpretation Comme nts POCT GP A STREP (test code = 10029-9) negative Negative - Negat felicity Lab Interpretation (test code = 64952-4) Normal [facility]
[2022-03-10 10:01] LABS: Urine Blood 2+ (Negative); Urine Glucose Negative (Negative); Urine Protein Negative (Negative); Urine pH 5.5 (5.0-7.0)
[2022-03-10] MEDS ORDERED: DIAZEPAM 5 MG TABLET ONE (10:18)
[2022-03-10] MEDS ORDERED: NA CHLORIDE 0.9% 500 ML ONE (10:19)
[2022-03-10] MEDS ORDERED: KETOROLAC 30 MG/ML INJ ONE (10:19)
[2022-03-10] MEDS ORDERED: MORPHINE 4 MG/ML SYR ONE (10:19)
[2022-03-10] MEDS ORDERED: ONDANSETRON 4 MG/2 ML VIAL ONE (10:19)
[2022-03-10] MEDS ORDERED: dexAMETHasone 10 MG/ML VIAL ONE (10:19)
--- NOTE | 2022-03-10 10:21 | RAD REPORT ---
EXAM DESCRIPTION: CT - Spine Lumbar Wo Con - 03/10/2022 10:08 am CLINICAL HISTORY: Radiculopathy. Lumbar radiculopathy, trauma COMPARISON: Spine Lumbar Wo Con dated 09/07/2020 TECHNIQUE: Axial noncontrast CT imaging of the lumbar spine was performed with coronal and sagittal re-formatted images. All CT scans are performed using dose optimization technique as appropriate and may include automated exposure control or mA/KV adjustment according to patient size. FINDINGS: No acute lumbar spine fracture seen. No aggressive marrow pattern or malalignment. Paraspinal tissues are normal in thickness. No paraspinal abscess or hematoma seen. Postsurgical changes are present spanning L4-S1 with hardware in place. Laminectomy defects are prese nt posteriorly at L4 and L5. No hardware complication seen. IMPRESSION: No acute lumbar spine abnormality is discerned. Postsurgical changes with hardware in place spanning L4-S1.
[2022-03-10 10:45] LABS: Hematocrit 36.1 % (36.0-45.0); Lymphocytes % 24.7 % (15.3-44.8); MCV 84.9 fL (80-100); MPV 7.4 fL (7.6-11.3); RBC Red Blood Cell Count 4.25 M/uL (3.86-4.86)
[2022-03-10 11:04] LABS: Albumin 3.9 g/dL (3.4-5.0); Bilirubin Total 0.7 mg/dL (0.2-1.0); Protein, Total 7.5 g/dL (6.4-8.2)
--- NOTE | 2022-03-10 11:29 | EDPHYS ---
Physician Documentation [facility] Name: Oneida Lea Age: 61 yrs Sex: Female : 1960 Arrival Date: 03/10/2022 Time: 09:27 Bed 14 Private MD: [facility] Physician Preston Brito HPI: 03/10 11:23 This 61 yrs old Female presents to ER via Wheelchair with complaints of Back zay Pain. 11:23 The patient presents with pain that is acute, and contusion, and decreased range of zay motion. The symptoms are located in the low back. Onset: The symptoms/episode began/occurred 2 day(s) ago. The pain does not radiate. Associated signs and symptoms: The patient has no apparent associated signs or symptoms. The problem was sustained during a fall, out of bed. Modifying factors: The patient symptoms are alleviated by remaining still, the patient symptoms are aggravated by any movement, bending. Severity of symptoms: At their worst the symptoms were mild, in the emergency department the symptoms are unchanged. The patient has not experienced similar symptoms in the past. Historical: - Allergies: 09:42 Demerol; aa5 09:42 meperidine HCl; aa5 09:42 PENICILLINS; aa5 09:42 topical iodine; aa5 - PMHx: 09:42 Anxiety; Chronic pain; Depression; Diverticulitis; High Cholesterol; Hypertension; aa5 Chronic Back pain; - PSHx: 09:42 Back Sx; aa5 - Immunization history:: Adult Immunizations up to date. - Social history:: Smoking status: Patient denies any tobacco usage or history of. - Family history:: not pertinent. ROS: 11:23 Constitutional: Negative for fever, chills, and weight loss, Eyes: Negative for injury, zay pain, redness, and discharge, ENT: Negative for injury, pain, and discharge, Neck: Negative for injury, pain, and swelling, Cardiovascular: Negative for chest pain, palpitations, and edema, Respiratory: Negative for shortness of breath, cough, wheezing, and pleuritic chest pain, Abdomen/GI: Negative for abdominal pain, nausea, vomiting, diarrhea, and constipation, : Negative for injury, bleeding, discharge, and swelling, MS/Extremity: Negative for injury and deformity, Skin: Negative for injury, rash, and discoloration, Neuro: Negative for headache, weakness, numbness, tingling, and seizure, Psych: Negative for depression, anxiety, suicide ideation, homicidal ideation, and hallucinations, Allergy/Immunology: Negative for hives, rash, and allergies, Endocrine: Negative for neck swelling, polydipsia, polyuria, polyphagia, and marked weight changes, Hematologic/Lymphatic: Negative for swollen nodes, abnormal bleeding, and unusual bruising. 11:23 Back: Positive for radiated pain, of the lumbar area. Exam: 11:23 Constitutional: This is a well developed, well nourished patient who is awake, alert, zay and in no acute distress. Head/Face: Normocephalic, atraumatic. Eyes: Pupils equal round and reactive to light, extra-ocular motions intact. Lids and lashes normal. Conjunctiva and sclera are non-icteric and not injected. Cornea within normal limits. Periorbital areas with no swelling, redness, or edema. ENT: Nares patent. No nasal discharge, no septal abnormalities noted. Tympanic membranes are normal and external auditory canals are clear. Oropharynx with no redness, swelling, or masses, exudates, or evidence of obstruction, uvula midline. Mucous membranes moist. Neck: Trachea midline, no thyromegaly or masses palpated, and no cervical lymphadenopathy. Supple, full range of motion without nuchal rigidity, or vertebral point tenderness. No Meningismus. Chest/axilla: Normal chest wall appearance and motion. Nontender with no deformity. No lesions are appreciated. Cardiovascular: Regular rate and rhythm with a normal S1 and S2. No gallops, murmurs, or rubs. Normal PMI, no JVD. No pulse deficits. Respiratory: Lungs have equal breath sounds bilaterally, clear to auscultation and percussion. No rales, rhonchi or wheezes noted. No increased work of breathing, no retractions or nasal flaring. Abdomen/GI: Soft, non-tender, with normal bowel sounds. No distension or tympany. No guarding or rebound. No evidence of tenderness throughout. Female : Normal external genitalia. Skin: Warm, dry with normal turgor. Normal color with no rashes, no lesions, and no evidence of cellulitis. MS/ Extremity: Pulses equal, no cyanosis. Neurovascular intact. Full, normal range of motion. Neuro: Awake and alert, GCS 15, oriented to person, place, time, and situation. Cranial nerves II-XII grossly intact. Motor strength 5/5 in all extremities. Sensory grossly intact. Cerebellar exam normal. Normal gait. Psych: Awake, alert, with orientation to person, place and time. Behavior, mood, and affect are within normal limits. 11:23 Back: pain, that is mild, ROM is painful, normal spinal alignment noted, CVA tenderness, is absent, muscle spasm, is appreciated in the mid back area, left low back, left mid back and right low back. Vital Signs: 09:41 BP 115 / 69; Pulse 88; Resp 16 S; Temp 99.2(O); Pulse Ox 99% on R/A; Weight 86.18 kg aa5 (R); Height 5 ft. 4 in. (162.56 cm) (R); 11:00 BP 107 / 66; Pulse 80; Resp 16; Pulse Ox 96% ; bp 12:19 BP 101 / 61; Pulse 73; Resp 16; Pulse Ox 96% ; bp 09:41 Body Mass Index 32.61 (86.18 kg, 162.56 cm) aa5 MDM: 09:46 Patient medically screened. zay 11:25 Differential diagnosis: Fatigue Fracture Joint Injury Osteoarthritis ruptured disc, zay Scoliosis sprain, vertebral fracture. Data reviewed: vital signs, nurses notes, lab test result(s), CBC, electrolytes, radiologic studies, CT scan. Data interpreted: alarm security or surveillance monitor: rate is 80 beats/min, rhythm is regular, Pulse oximetry: on room air is 96 %. Counseling: I had a detailed discussion with the patient and/or guardian regarding: the historical points, exam findings, and any diagnostic results supporting the discharge/admit diagnosis, lab results, radiology results, the need for outpatient follow up, for definitive care, a family practitioner. 03/10 09:50 Order name: CBC with Diff; Complete Time: : [facility] 03/10 09:50 Order name: Comprehensive Metabolic Panel; Complete Time: 11:30 zay 03/10 09:50 Order name: CT Lumbar Spine Wo Con; Complete Time: : zay 03/10 10:01 Order name: Urine Dipstick-Ancillary; Complete Time: 11:06 EDMS 03/10 09:50 Order name: Urine Dipstick-Ancillary (obtain specimen); Complete Time: 10:00 zay Administered Medications: 10:30 Drug: NS 0.9% 500 ml Route: IV; Rate: bolus; Site: right wrist; bp 12:20 Follow up: IV Status: Completed infusion; IV Intake: 500ml bp 10:30 Drug: Ketorolac 30 mg Route: IVP; Site: right wrist; bp 11:34 Follow up: Response: Pain is decreased bp 10:30 Drug: morphine 4 mg Route: IVP; Infused Over: 4 mins; Site: right wrist; bp 11:34 Follow up: Response: Pain is decreased bp 10:30 Drug: Zofran (Ondansetron) 4 mg Route: IVP; Site: right wrist; bp 11:34 Follow up: Response: No adverse reaction bp 10:30 Drug: Valium (diazepam) 5 mg Route: PO; bp 11:34 Follow up: Response: No adverse reaction bp 10:30 Drug: Decadron - Dexamethasone 10 mg Route: IVP; Site: right wrist; bp 11:33 Follow up: Response: No adverse reaction bp 11:40 Drug: Potassium Effervescent Tablet 50 mEq Route: PO; bp 12:21 Follow up: Response: No adverse reaction bp Disposition Summary: 03/10/22 11:28 Discharge Ordered Location: Home zay Problem: new zay Symptoms: have improved zay Condition: Stable zay Diagnosis - Low back pain zay - Fall on same level, unspecified zay - Abnormal level of enzymes in specimens from digestive organs and abdominal cavity - zay elevated transaminases Followup: zay - With: Private Physician - When: 2 - 3 days - Reason: Recheck today's complaints, Continuance of care, Re-evaluation by your physician Followup: zay - With: Aditi Kelsey MD - When: 2 - 3 days - Reason: Recheck today's complaints, Re-evaluation by your physician Discharge Instructions: - Discharge Summary Sheet zay - Acute Back Pain, Adult zay - Chronic Back Pain zay - Musculoskeletal Pain zay - Chronic Back Pain, [id number] zay Forms: - Medication Reconciliation Form zay - Thank You Letter zay - Antibiotic Education zay - Prescription Opioid Use zay Prescriptions: - Ibuprofen 600 mg Oral Tablet - take 1 tablet by ORAL route every 6 hours As needed take with food; 20 tablet; [facility] Refills: 0, Product Selection Permitted - Medrol (William) 4 mg Oral Tablets, Dose Pack - take 1 tablet by ORAL route as directed - follow package instructions; 1 zay packet; Refills: 0, Product Selection Permitted - Cyclobenzaprine 5 mg Oral Tablet - take 1 tablet by ORAL route 3 times per day As needed; 15 tablet; Refills: 0, zay Product Selection Permitted Signatures: Dispatcher [employer] Preston Camargo MD MD cha Calderon, Audri RN RN aa5 Mychal Galicia RN RN bp
--- NOTE | 2022-03-10 11:29 | ER ---
Nurse's Notes [facility] Name: Oneida Lea Age: 61 yrs Sex: Female : 1960 Arrival Date: 03/10/2022 Time: 09:27 Bed 14 Private MD: Diagnosis: Low back pain;Fall on same level, unspecified;Abnormal level of enzymes in specimens from digestive organs and abdominal cavity-elevated transaminases Presentation: 03/10 09:41 Chief complaint: Patient states: fell out of bed on Thursday. Pt c/o low back pain and aa5 right mid-low back pain. Pt reports she has chronic back pain but it's worse after the fall, reports she takes [place] and Tramadol at home. Coronavirus screen: At this time, the client does not indicate any symptoms associated with coronavirus-19. Ebola Screen: Patient denies travel to an Ebola-affected area in the 21 days before illness onset. Initial Sepsis Screen: Does the patient meet any 2 criteria? No. Patient's initial sepsis screen is negative. Does the patient have a suspected source of infection? No. Patient's initial sepsis screen is negative. Risk Assessment: Do you want to hurt yourself or someone else? Patient reports no desire to harm self or others. Onset of symptoms was February 2022. 09:41 Acuity: CINTHYA 4 aa5 09:41 Method Of Arrival: Wheelchair aa5 Triage Assessment: 09:45 General: Appears in no apparent distress. uncomfortable, Behavior is cooperative, bp appropriate for age, anxious. Pain: Complains of pain in back. EENT: No deficits noted. Neuro: No deficits noted. Cardiovascular: No deficits noted. Respiratory: No deficits noted. GI: No signs and/or symptoms were reported involving the gastrointestinal system. : No signs and/or symptoms were reported regarding the genitourinary system. Derm: No deficits noted. Musculoskeletal: Circulation, motion, and sensation intact. Historical: - Allergies: 09:42 Demerol; aa5 09:42 meperidine HCl; aa5 09:42 PENICILLINS; aa5 09:42 topical iodine; aa5 - PMHx: 09:42 Anxiety; Chronic pain; Depression; Diverticulitis; High Cholesterol; Hypertension; aa5 Chronic Back pain; - PSHx: 09:42 Back Sx; aa5 - Immunization history:: Adult Immunizations up to date. - Social history:: Smoking status: Patient denies any tobacco usage or history of. - Family history:: not pertinent. Screenin:00 Abuse screen: Denies threats or abuse. Denies injuries from another. Nutritional bp screening: No deficits noted. Tuberculosis screening: No symptoms or risk factors identified. Fall Risk None identified. Assessment: 09:45 General: SEE TRIAGE NOTE. bp 11:00 Reassessment: No changes from previously documented assessment. Patient and/or family bp updated on plan of care and expected duration. Pain level reassessed. Neuro: Level of Consciousness is awake, alert, obeys commands, Oriented to Appropriate for age. 11:34 Reassessment: D/C ON HOLD FOR ADD'L TREATMENT. bp 12:19 Reassessment: PT D/C HOME AMBULATORY. bp Vital Signs: 09:41 BP 115 / 69; Pulse 88; Resp 16 S; Temp 99.2(O); Pulse Ox 99% on R/A; Weight 86.18 kg aa5 (R); Height 5 ft. 4 in. (162.56 cm) (R); 11:00 BP 107 / 66; Pulse 80; Resp 16; Pulse Ox 96% ; bp 12:19 BP 101 / 61; Pulse 73; Resp 16; Pulse Ox 96% ; bp 09:41 Body Mass Index 32.61 (86.18 kg, 162.56 cm) aa5 ED Course: 09:27 Patient arrived in ED. rg4 09:39 Mychal Galicia, RN is Primary Nurse. bp 09:41 Arm band placed on Patient placed in an exam room, on a stretcher. aa5 09:42 Triage completed. aa5 09:46 Preston Brito MD is Attending Physician. zay 10:10 CT Lumbar Spine Wo Con In Process Unspecified. EDMS 10:30 Inserted saline lock: 22 gauge in right wrist, using aseptic technique. Blood collected.bp 11:00 Patient has correct armband on for positive identification. Bed in low position. Call bp light in reach. Side rails up X2. 11:31 Aditi Kelsey MD is Referral Physician. zay 12:19 No provider procedures requiring assistance completed. IV discontinued, intact, bp bleeding controlled, No redness/swelling at site. Pressure dressing applied. Administered Medications: 10:30 Drug: NS 0.9% 500 ml Route: IV; Rate: bolus; Site: right wrist; bp 12:20 Follow up: IV Status: Completed infusion; IV Intake: 500ml bp 10:30 Drug: Ketorolac 30 mg Route: IVP; Site: right wrist; bp 11:34 Follow up: Response: Pain is decreased bp 10:30 Drug: morphine 4 mg Route: IVP; Infused Over: 4 mins; Site: right wrist; bp 11:34 Follow up: Response: Pain is decreased bp 10:30 Drug: Zofran (Ondansetron) 4 mg Route: IVP; Site: right wrist; bp 11:34 Follow up: Response: No adverse reaction bp 10:30 Drug: Valium (diazepam) 5 mg Route: PO; bp 11:34 Follow up: Response: No adverse reaction bp 10:30 Drug: Decadron - Dexamethasone 10 mg Route: IVP; Site: right wrist; bp 11:33 Follow up: Response: No adverse reaction bp 11:40 Drug: Potassium Effervescent Tablet 50 mEq Route: PO; bp 12:21 Follow up: Response: No adverse reaction bp Medication: 11:00 VIS not applicable for this client. bp Intake: 12:20 IV: 500ml; Total: 500ml. bp Outcome: 11:28 Discharge ordered by . zay 12:19 Patient left the ED. bm7 12:19 Discharged to home ambulatory. bp 12:19 Condition: stable 12:19 Discharge instructions given to patient, Instructed on discharge instructions, follow up and referral plans. medication usage, Demonstrated understanding of instructions, follow-up care, medications, Prescriptions given X 3. Signatures: Dispatcher [employer] EDMN Preston Brito MD MD cha Calderon, Audri, RN RN [email or web address] Swathi [email or web address] Mychal Galicia RN RN bp Jeannie Mercado, MAGGI RN bm7
[2022-03-10] MEDS ORDERED: POTASSIUM 25 MEQ EFFERV TAB ONE (11:47)
[2022-03-10 12:52] VITALS: TEMP 99.2
[2022-03-10 13:01] VITALS: O2SAT 96
[2022-03-10 13:03] VITALS: BP 101/61
== END 2022-03-10 12:19 | disposition home or self-care (01) ==
LOC: ER 09:24
DX: M54.50 Low back pain, unspecified (principal); W18.30XA Fall on same level, unspecified, initial encounter; R74.01 Elevation of levels of liver transaminase levels; I10 Essential (primary) hypertension; Z88.0 Allergy status to penicillin; Z88.5 Allergy status to narcotic agent; Z88.8 Allergy status to other drugs, medicaments and biological substances
CPT/HCPCS: 96361; 85025; 36415; 81003; 80053; 72131; 96375; 96374; 99284; J1100; J7040; J2405

== ENCOUNTER 2022-03-12 11:50 | Emergency (ER) | payer OTHER ==
--- OUTSIDE RECORDS SUMMARY | 2022-03-12 11:53 | XMS REPORT | Continuity of Care Document ---
:1960 Author Organization [facility] t Address [address] [place] [address] Dr. Baum [address] [place] [id number] Care Team Providers Name Role Phone Kevon Wiggins MD Primary Care Physician [phone] Pcp, Patient Does Not Have A Attending Clinician [phone] Pob1, Acute Care Clinic Attending Clinician Unavailable Maggi Gonzalez Attending Clinician Problems Condition Condition Condition Status Onset Resolution Last Treating Co mments Source Name Details Category Date Date Treatment Clinician Date Acute URI Acute URI Disease Active 2020-0 Uni vers 5-13 ity of 00:00: [place] 00 [facility] [place] Cough Cough Disease Active 2020-0 Univers 5-13 ity of 00:00: [place] [facility] Lumbar Lumbar Disease Active [...] HCL INGREDI 11-08 ity of 00:00: 00 [facility] Meperidi Propensi Active GI VOMITTING Met hodi [...] Active Univers ALLERGIE Class ity of S [facility] Family History Family Member Diagnosis Comments Start Date Stop Date Source Natural father No Known Problems Met [facility] Natural mother Diabetes [facility] Social History Social Habit Start Date Stop Date Quantity Comments Source History of Cigarette Smoker [facility] tobacco use Hospital Alcohol intake 2017-02-04 2017-02-04 Current [facility] 00:00:00 00:00:00 non-drinker of Hospital alcohol (finding) Tobacco use and 2017-01-30 2017-01-30 Smokeless tobacco Me [facility] exposure 00:00:00 00:00:00 non-user Hospital Sex Ass[birth year] At [birth year] [facility] 00:00:00 00:00:00 Hospital Smoking Status Start Date Stop Date Source Former smoker 2019-11-09 00:00:00 2019-11-09 00:00:00 [facility] Medications Ordered Filled Start Stop Current Ordering Indication Dosage Frequency Signature Comments Components Source Medication Medication Date Date Medication? Clinician (SIG) Name Name paroxetine Yes Take by Univ ers HCl (PAXIL 5-13 mouth. ity of ORAL) 19:32: [address] lamotrigine Yes Take by Uni vers (LAMICTAL 5-13 mouth. ity of ORAL) 19:32: [address] paroxetine Yes Take by Univ ers HCl (PAXIL 5-13 mouth. ity of ORAL) 19:32: [address] lamotrigine Yes Take by Uni vers [...] 5-13 mouth. ity of HEN ORAL 19:30: [place] [facility] HYDROCODONE 2020-0 Yes Take by Uni vers -ACETAMINOP 5-13 mouth. ity of HEN ORAL 19:30: [place] [facility] atorvastati 2020-0 Yes Take by Uni vers n calcium 5-13 mouth. ity of (ATORVASTAT 19:30: [place] IN ORAL) 32 [facility] pregabalin 2020-0 Yes Take by Univ ers (LYRICA 5-13 mouth. ity of ORAL) 19:30: [place] [facility] atorvastati 2020-0 Yes Take by Uni vers n calcium 5-13 mouth. ity of (ATORVASTAT 19:30: [place] IN ORAL) 32 [facility] pregabalin 2020-0 Yes Take by Univ ers (LYRICA 5-13 mouth. ity of ORAL) 19:30: [place] [facility] valsartan 2020-0 Yes Take by Unive rs (DIOVAN 5-13 mouth. ity of ORAL) 19:29: [place] [facility] cyclobenzap 2020-0 Yes Take by Uni vers rine HCl 5-13 mouth. ity of (FLEXERIL 19:29: [place] ORAL) 59 [facility] METOPROLOL 2020-0 Yes Take by Univ ers TARTRATE 5-13 mouth. ity of ORAL 19:29: [place] [facility] valsartan 2020-0 Yes Take by Unive rs (DIOVAN 5-13 mouth. ity of ORAL) 19:29: [place] [facility] cyclobenzap 2020-0 Yes Take by Uni vers rine HCl 5-13 mouth. ity of (FLEXERIL 19:29: [place] ORAL) 59 [facility] Branch METOPROLOL 2020-0 Yes Take by Univ ers TARTRATE 5-13 mouth. ity of ORAL 19:29: [place] [facility] azithromyci 2020-0 Yes [id number] 250mg Take 1 Univers n 250 mg 5-13 tablet by ity of tablet 00:00: mouth 00 daily. Medical Take 500 Branch mg day 1, then 250 mg days 2 to 5. azithromyci 2020-0 Yes [id number] 250mg Take 1 Univers n 250 mg 5-13 tablet by ity of tablet 00:00: mouth 00 daily. Medical Take 500 Branch mg day 1, then 250 mg days 2 to 5. dicyclomine 2017-0 Yes 10mg Q.25D Take 10 mg Methodi (BENTYL) 10 8-[address] MG capsule 19:59: (four) Hospi ta 50 times a l day before meals and nightly. esomeprazol 2017-0 Yes 20mg QD Take 20 mg Methodi e (NexIUM) 8-[address] 20 MG 19:59: daily Hospita capsule 50 before l breakfast. dicyclomine 2017-0 Yes 10mg Q.25D Take 10 mg Methodi (BENTYL) 10 8-[address] MG capsule 19:59: (four) Hospi ta 50 times a l day before meals and nightly. esomeprazol 2017-0 Yes 20mg QD Take 20 mg Methodi e (NexIUM) 8-[address] 20 MG 19:59: daily Hospita capsule 50 before l breakfast. methocarbam Yes Take 1 Meth dinah ol 8-[address] (ROBAXIN-75 00:00: every 6 Hos eber 0) 750 MG 00 hours as l tablet needed for spasms methocarbam Yes Take 1 Meth dinah ol [...] mouth as [facility] 00 needed. l HYDROcodone Yes 1{tbl} Q4H Take 1 Me [...] 00:00: mouth Hospita tablet 00 daily. l valsartan Yes 160mg QD Take 160 Met hodi (DIOVAN) 7-[address] 160 MG 00:00: mouth Hospita tablet 00 daily. l metoprolol Yes 1{tbl} QD Take 1 Met hodi tartrate 6-[address] (LOPRESSOR) 00:00: mouth Hospi ta 100 mg 00 daily. l tablet rOPINIRole Yes 1{tbl} QD Take 1 Met hodi (REQUIP) 6-[address] 0.5 MG 00:00: mouth Hospita tablet 00 daily. l atorvastati Yes 1{tbl} QD Take 1 Me thodi [...] mouth Hospita tablet 00 daily. l atorvastati Yes 1{tbl} QD Take 1 Me thodi n (LIPITOR) 6-[address] 10 MG 00:00: mouth Hospita tablet 00 daily. l PARoxetine Yes 40mg QD Take 40 mg M ethodi (PAXIL) 40 6-[address] MG tablet 00:00: daily. Hospit a 00 l Vital Signs Vital Name Observation Time Observation Value Comments Source Systolic blood 2019-11-09 19:24:00 166 mm[Hg] Univer sity of pressure [place] [facility] Diastolic blood 2019-11-09 19:24:00 91 mm[Hg] Unive rsity of pressure [facility] Heart rate 2019-11-09 19:17:00 88 /min Universi ty of [facility] Body temperature 2019-11-09 19:17:00 37 Luda Univ ersity of [facility] Respiratory rate 2019-11-09 19:17:00 18 /min Univ ersity of [facility] Body height 2019-11-09 19:17:00 162.6 cm Universi ty of [place] [facility] Body weight 2019-11-09 19:17:00 90.719 kg Universi ty of [place] [facility] BMI 2019-11-09 19:17:00 34.33 kg/m2 Universi ty of [facility] Oxygen saturation in 2019-11-09 19:17:00 98 /min University of Arterial blood by [place] [employer] [facility] Pulse oximetry Branch Systolic blood 2019-11-09 19:24:00 166 mm[Hg] Univer sity of pressure [facility] Diastolic blood 2019-11-09 19:24:00 91 mm[Hg] Unive rsity of pressure [facility] Heart rate 2019-11-09 19:17:00 88 /min Universi ty [facility] [place] [facility] Body temperature 2019-11-09 19:17:00 37 Luda Univ ersity of [facility] Respiratory rate 2019-11-09 19:17:00 18 /min Univ ersity of [facility] Body height 2019-11-09 19:17:00 162.6 cm Universi ty of [place] [facility] Body weight 2019-11-09 19:17:00 90.719 kg Universi ty [facility] [place] [facility] BMI 2019-11-09 19:17:00 34.33 kg/m2 [facility]i ty [facility] [place] [facility] Oxygen saturation in 2019-11-09 19:17:00 98 /min University of Arterial blood by [place] [employer] [facility] Pulse oximetry Branch Procedures Procedure Date / Time Performed Performing Clinician Sourc e POCT GRP A STREP 2019-11-09 19:26:00 Maggi Nelson [facility]) [facility] Plan of Care Planned Activity Planned Date Details Comments Source Future Scheduled 2022-02-27 HEPATITIS B VACCINES Met [facility] Test 04:27:28 (1 of 3 - 3-dose series) [code = HEPATITIS B VACCINES (1 of 3 - 3-dose series)] Future Scheduled 2022-02-27 COVID-19 VACCINE (#1) [facility] Test 04:27:28 [code = COVID-19 VACCINE (#1)] Future Scheduled 2022-02-27 Screening for [facility] Test 04:27:28 malignant neoplasm of cervix (procedure) [code = 593468741] Future Scheduled 2022-02-27 BREAST CANCER [facility] Test 04:27:28 SCREENING [code = BREAST CANCER SCREENING] Future Scheduled 2022-02-27 COLONOSCOPY SCREENING [facility] Test 04:27:28 [code = COLONOSCOPY SCREENING] Future Scheduled 2022-02-27 SHINGLES VACCINES (1 Met [facility] Test 04:27:28 of 2) [code = SHINGLES VACCINES (1 of 2)] Future Scheduled 2022-02-27 INFLUENZA VACCINE Method [facility] Test 04:27:28 [code = INFLUENZA VACCINE] Future Scheduled 2022-02-27 HEPATITIS B VACCINES Met [facility] Test 04:27:28 (1 of 3 - 3-dose series) [code = HEPATITIS B VACCINES (1 of 3 - 3-dose series)] Future Scheduled 2022-02-27 COVID-19 VACCINE (#1) [facility] Test 04:27:28 [code = COVID-19 VACCINE (#1)] Future Scheduled 2022-02-27 Screening for [facility] Test 04:27:28 malignant neoplasm of cervix (procedure) [code = 707317954] Future Scheduled 2022-02-27 BREAST CANCER [facility] Test 04:27:28 SCREENING [code = BREAST CANCER SCREENING] Future Scheduled 2022-02-27 COLONOSCOPY SCREENING [facility] Test 04:27:28 [code = COLONOSCOPY SCREENING] Future Scheduled 2022-02-27 SHINGLES VACCINES (1 Met [facility] Test 04:27:28 of 2) [code = SHINGLES VACCINES (1 of 2)] Future Scheduled 2022-02-27 INFLUENZA VACCINE Method [facility] Test 04:27:28 [code = INFLUENZA VACCINE] Encounters Start End Encounter Admission Attending Care Care Encounter Source Date/Time Date/Time Type Type Clinicians Facility Department ID 2019-11-11 2019-11-11 Telephone Pcp, [facility] [id number] 00:00:00 00:00:00 Patient Health [id number] Does Not Surgical [id number] Have A Specialti [id number] es [address] [place] 2019-11-11 2019-11-11 Telephone Pcp, [facility] [id number] Univers 00:00:00 00:00:00 Patient Health [id number] it y of Does Not Surgical [id number] [place] Have A Specialti [id number] Sd dical [address] [facility] 2019-11-09 2019-11-09 Urgent Pob1, Acute [facility] [id number] 14:10:27 14:50:22 Care Care [facility] Health [id number] [place] [id number] Professio [id number] nal [facility] Office [facility] 2019-11-09 2019-11-09 Urgent Pob1, Acute Care [facility] [id number] Univers 14:10:27 14:50:22 Care Maggi Nelson A Health [id number] ity of [place] [id number] [place] as Professio [id number] Sd dic[address] Office [facility] 2019-11-09 2019-11-09 Outpatient R [facility] [id number] [id number] Univers 14:00:00 14:00:00 [facility] Results Test Description Test Time Test Comments Results Result Comments Source POCT GRP A STREP (MOLECULAR) 2019-11-09 19:36:00 Test Item Value Reference Range Interpretation Comme nts POCT GP A STREP (test code = 07376-0) negative Negative - Negat felicity Lab Interpretation (test code = 21697-1) Normal [facility]
--- NOTE | 2022-03-12 14:41 | RAD REPORT ---
EXAM DESCRIPTION: CT - CTHCSPWOC - 03/12/2022 2:30 pm CLINICAL HISTORY: Trauma, head and neck injury. Fall injury, pain COMPARISON: C Spine Wo Con dated 09/07/2020; Head C Spine Mpr Wo Con dated 11/25/2018; CT HEAD CSPINE MPR WO CONTRAST dated 06/14/2015 TECHNIQUE: Axial 5 mm thick images of the head were obtained. Axial 2 mm thick images of the cervical spine were obtained with sagittal and coronal reconstruction images generated and reviewed. All CT scans are performed using dose optimization technique as appropriate and may include automated exposure control or mA/KV adjustment according to patient size. FINDINGS: CT HEAD WITHOUT CONTRAST: No acute hemorrhage, hydrocephalus or extra-axial collection is identified.No areas of brain edema or midline shift. The paranasal sinuses and mastoids are clear.The calvarium is intact. CT CERVICAL SPINE WITHOUT CONTRAST: No fracture or subluxation.No prevertebral soft tissues swelling is identified. Mild cervical spondyl osis with varying degrees of neural foraminal narrowing. Trace anterolisthesis of C3 on C4 is likely related to underlying degenerative changes. Mild central spinal stenosis suspected at C6-7. Neural fo raminal narrowing is most advanced at C3-4 on the left and C4-5 on the right. . IMPRESSION: No acute intracranial or cervical spine findings.
--- NOTE | 2022-03-12 14:44 | RAD REPORT ---
EXAM DESCRIPTION: CTAbdomen Pelvis Wo Contrast - 03/12/2022 2:30 pm CLINICAL HISTORY: RLQ abdominal pain COMPARISON: [facility] Protocol dated 01/16/2021; Abdomen Pelvis W Contrast dated 08/01/2020; Abdomen Pe lvis W Contrast dated 12/09/2019; Abdomen Pelvis Wo Contrast dated 12/13/2018 TECHNIQUE: CT of the abdomen and pelvis was performed. All CT scans are performed using dose optimization technique as appropriate and may include automated exposure control or mA/KV adjustment according to patient size. FINDINGS: Lower chest: Small hiatal hernia with circumferential thickening of the distal esophagus. Liver: No acute abnormality or suspicious lesions. Biliary: Cholecystectomy. Stomach: No significant focal abnormality. Duodenum: No significant focal abnormality. Pancreas: No significant abnormality. Spleen: No significant abnormality. Adrenal: No suspicious lesions. Kidney/ureter: No hydronephrosis. No renal calculi. Retroperitoneum: No retroperitoneal adenopathy. Vascular: No aneurysm. Atherosclerosis. Bowel: No significant focal abnormality. Diverticulosis. No evidence of acute diverticulitis. Peritoneum: No ascites or free air. Bladder: Grossly unremarkable. Reproductive: No adnexal masses. Bones: No acute fracture. L4-S1 fusion. Other: n/a IMPRESSION: No acute intra-abdominal or pelvic finding.
--- NOTE | 2022-03-12 14:44 | RAD REPORT ---
EXAM DESCRIPTION: RAD - Chest Single View - 03/12/2022 2:37 pm CLINICAL HISTORY: CHEST PAIN COMPARISON: Chest Pa And Lat (2 Views) dated 06/12/2021; Chest Single View dated 11/23/2015; CHEST SI NGLE VIEW dated 12/06/2012; CHEST PA AND LAT 2 VIEW dated 08/27/2012 FINDINGS: Lines: None. Lungs: No evidence of edema or pneumonia. Pleural: No significant pleural effusions or pneumothorax. Cardiac: The heart size is within normal limits. Mediastinum: Within normal limits. Bones: No acute fractures. Other: None IMPRESSION: No acute cardiopulmonary disease.
[2022-03-12 16:48] LABS: Absolute Lymphocytes (CBC) 1.5 K/uL (0.7-4.9); Hematocrit 38.4 % (36.0-45.0); Lymphocytes % 15.7 % (15.3-44.8); MCV 84.7 fL (80-100); MPV 7.6 fL (7.6-11.3); RBC Red Blood Cell Count 4.54 M/uL (3.86-4.86)
[2022-03-12 16:52] LABS: Albumin 4.4 g/dL (3.4-5.0); Bilirubin Direct 0.1 mg/dL (0-0.2); Bilirubin Total 0.3 mg/dL (0.2-1.0); Potassium 3.6 mmol/L (3.5-5.1); Protein, Total 8.1 g/dL (6.4-8.2); Troponin High Sensitivity 3.8 pg/mL (<58.9)
[2022-03-12 17:04] LABS: Protime INR 0.93
[2022-03-12] MEDS ORDERED: NA CHLORIDE 0.9% 1,000 ML ONE (18:15)
--- NOTE | 2022-03-12 19:00 | EDPHYS ---
Physician Documentation [facility] Name: Oneida Lea Age: 61 yrs Sex: Female : 1960 Arrival Date: 03/12/2022 Time: 11:51 Bed 15 Private MD: Kevon Gonsalez R ED Physician Jared Donaldson HPI: 03/12 13:59 This 61 yrs old Female presents to ER via Wheelchair with complaints of Tremor, Memory pm1 Loss. 13:59 The patient presents to the emergency department with tremors to hands bilaterally. pm1 Onset: The symptoms/episode began/occurred 5 day(s) ago. Context: occurred at home. Associated signs and symptoms: Pertinent positives: right lower quadrant pain for 5 days and chest pain for 2 days, Pertinent negatives: dizziness, fever, headache, weakness. Severity of symptoms: in the emergency department the symptoms are unchanged. Patient's baseline: Neuro: alert and fully oriented, Motor: no deficits, Ambulation: walks without assistance, Speech: normal. The patient has not experienced similar symptoms in the past. The patient has not recently seen a physician. 18:24 Patient reports onset of symptoms as a result of cessation of her hydrocodone and pm1 tramadol for about a week. Patient reports the shaking to her hands bilaterally, tremor started about 5 days ago. Abdominal pain onset 5 days ago to right lower quadrant. Chest pain onset 2 days ago. Historical: - Allergies: 13:30 PENICILLINS; tp1 13:30 Demerol; tp1 13:30 topical iodine; tp1 13:30 meperidine HCl; tp1 - Home Meds: 13:30 hydrocodone-tramadol [Active]; losartan 100 mg Oral tab once daily [Active]; Lyrica tp1 Oral [Active]; methocarbamol 750 mg Oral tab 1 tab twice a day [Active]; Metoprolol Tartrate Oral [Active]; Diovan Oral [Active]; Tramadol Oral [Active]; - PMHx: 13:30 Anxiety; Chronic pain; Depression; Hypertension; High Cholesterol; Diverticulitis; tp1 chronic back pain; - PSHx: 13:30 back sx; heart cath; tp1 - Immunization history:: Client reports receiving the 2nd dose of the Covid vaccine. - Social history:: Smoking status: Patient denies any tobacco usage or history of. ROS: 13:59 Constitutional: Negative for fever, chills, and weight loss. pm1 13:59 Respiratory: Negative for shortness of breath, cough, wheezing, and pleuritic chest pain. 13:59 Back: Negative for injury and pain, : Negative for injury, bleeding, discharge, and swelling, MS/Extremity: Negative for injury and deformity, Skin: Negative for injury, rash, and discoloration. 13:59 Cardiovascular: Positive for chest pain, Negative for edema. 13:59 Abdomen/GI: Positive for abdominal pain, of the right lower quadrant. 13:59 Neuro: Positive for headache, tremor, Negative for dizziness. 13:59 All other systems are negative. Exam: 13:59 Constitutional: This is a well developed, well nourished patient who is awake, alert, pm1 and in no acute distress. Head/Face: Normocephalic, atraumatic. 13:59 Back: No spinal tenderness. No costovertebral tenderness. Full range of motion. Skin: Warm, dry with normal turgor. Normal color with no rashes, no lesions, and no evidence of cellulitis. MS/ Extremity: Pulses equal, no cyanosis. Neurovascular intact. Full, normal range of motion. 13:59 Eyes: Exam is negative for acute changes, Periorbital structures: appear normal, Pupils: no acute changes, Extraocular movements: no acute changes, Conjunctiva: no acute changes. 13:59 ENT: Exam is negative for acute changes, Mouth: no acute changes, Lips: normal, moist, Oral mucosa: normal, pink and intact, moist. 13:59 Cardiovascular: Exam negative for acute changes, Rate: normal, Rhythm: regular, Pulses: no pulse deficits are appreciated, Heart sounds: normal, normal S1and S2. 13:59 Respiratory: Exam negative for acute changes, respiratory distress, shortness of breath, Breath sounds: are clear throughout. 13:59 Abdomen/GI: Inspection: obese Palpation: abdomen is soft and non-tender, in all quadrants. 13:59 Neuro: Exam negative for acute changes, Orientation: is normal, Mentation: is normal, Motor: is normal, moves all fours. 16:58 ECG was reviewed by the Attending Physician. pm1 Vital Signs: 13:29 BP 179 / 98; Pulse 68; Resp 16; Temp 98.2(TE); Pulse Ox 100% on R/A; Weight 84.82 kg; tp1 Height 5 ft. 4 in. (162.56 cm); 17:02 BP 156 / 84; Pulse 68; Pulse Ox 100% ; ko1 18:11 BP 85 / 58; Pulse 85; Resp 18; Pulse Ox 98% ; ko1 19:27 BP 100 / 63; Pulse 55; Resp 17 S; Pulse Ox 99% on R/A; lg3 20:10 BP 108 / 60; Pulse 63; Resp 18 S; Pulse Ox 99% on R/A; lg3 21:20 BP 106 / 70; Pulse 58; Resp 18; Pulse Ox 98% on R/A; lg3 13:29 Body Mass Index 32.10 (84.82 kg, 162.56 cm) tp1 Jimy Coma Score: 17:00 Eye Response: spontaneous(4). Verbal Response: oriented(5). Motor Response: obeys ko1 commands(6). Total: 15. MDM: 13:48 Patient medically screened. pm1 16:57 Data reviewed: vital signs. Data interpreted: Pulse oximetry: on room air is 100 %. pm1 Interpretation: normal. 18:24 Counseling: I had a detailed discussion with the patient and/or guardian regarding: the pm1 historical points, exam findings, and any diagnostic results supporting the discharge/admit diagnosis, lab results, radiology results, the need for outpatient follow up, to return to the emergency department if symptoms worsen or persist or if there are any questions or concerns that arise at home. 20:19 ED course: And offered additional normal saline. Patient wants to go home in drink the pm1 additional fluids instead of IV fluids. 03/12 13:47 Order name: Basic Metabolic Panel; Complete Time: 16:56 pm1 03/12 13:47 Order name: CBC with Diff; Complete Time: 16:56 pm1 03/12 13:47 Order name: LFT's; Complete Time: 16:56 pm1 03/12 13:47 Order name: PT-INR; Complete Time: 17:23 pm1 03/12 13:47 Order name: Troponin HS; Complete Time: 16:56 pm1 03/12 13:47 Order name: Lipase; Complete Time: 16:56 pm1 03/12 13:47 Order name: XRAY Chest (1 view); Complete Time: 15:05 pm1 03/12 13:47 Order name: EKG; Complete Time: 13:48 pm1 03/12 13:47 Order name: Cardiac monitoring; Complete Time: 16:52 pm1 03/12 13:47 Order name: EKG - Nurse/Tech; Complete Time: 16:59 pm1 03/12 13:47 Order name: CT Head C Spine; Complete Time: 15:05 pm1 03/12 14:24 Order name: Abdomen ; Complete Time: 15:05 EDMS 03/12 13:47 Order name: IV Saline Lock; Complete Time: 16:51 pm1 03/12 13:47 Order name: Labs collected and sent; Complete Time: 16:51 pm1 03/12 13:47 Order name: O2 Per Protocol; Complete Time: 16:52 pm1 03/12 13:47 Order name: O2 Sat Monitoring; Complete Time: 16:51 pm1 EC:58 Rate is 68 beats/min. Rhythm is regular, Normal Sinus Rhythm with No ectopy. QRS [place] pm1 is Normal. LA interval is normal. QRS interval is normal. QT interval is normal. No Q waves. T waves are Normal. No ST changes noted. Clinical impression: Normal ECG. Administered Medications: 18:43 Drug: NS 0.9% 1000 ml Route: IV; Rate: 1000 ml; Site: right antecubital; ko1 20:10 Follow up: Response: No adverse reaction; IV Status: Completed infusion; IV Intake: lg3 1000ml Disposition: 03/13 20:33 Co-signature as Attending Physician, Jared Donaldson MD. rn Disposition Summary: 03/12/22 18:59 Discharge Ordered Location: Home pm1 Problem: new pm1 Symptoms: have improved pm1 Condition: Stable pm1 Diagnosis - Dehydration pm1 - Abdominal pain, unspecified pm1 - Chest pain, unspecified pm1 - Tremor, unspecified pm1 Followup: pm1 - With: Emergency Department - When: As needed - Reason: Worsening of condition Followup: pm1 - With: Kevon Gonsalez MD - When: 2 - 3 days - Reason: Recheck today's complaints, Continuance of care, Re-evaluation by your physician Followup: pm1 - With: Seth Acevedo MD - When: 2 - 3 days - Reason: Recheck today's complaints, Continuance of care, Re-evaluation by your physician Discharge Instructions: - Discharge Summary Sheet pm1 - Abdominal Pain, Adult pm1 - Nonspecific Chest Pain, Adult pm1 - Dehydration, Adult pm1 - Tremor pm1 - Rehydration, Adult pm1 Forms: - Medication Reconciliation Form pm1 - Thank You Letter pm1 - Antibiotic Education pm1 - Prescription Opioid Use pm1 Signatures: Dispatcher [employer] EDMS Jared Donaldson MD MD rn Arnulfo Steele NP INSTRUMENT SPECIALIST pm1 Jennifer Reyes RN RN tp1 Veronica Reddy RN RN ko1 Arlin Pena RN lg3 Corrections: (The following items were deleted from the chart) 03/12 14:24 13:53 Abdomen Pelvis W Con+CT.RAD.BRZ ordered. EDVA EDMS
--- NOTE | 2022-03-12 19:00 | ER ---
Nurse's Notes [facility] Name: Oneida Lea Age: 61 yrs Sex: Female : 1960 Arrival Date: 03/12/2022 Time: 11:51 Bed 15 Private MD: Kevon Gonsalez R Diagnosis: Dehydration;Abdominal pain, unspecified;Chest pain, unspecified;Tremor, unspecified Presentation: 03/12 13:24 Chief complaint: Patient states: Fell on Thursday 03/08. reports rolling out of bed and tp1 hit right elbow on dresser. States she may have hit head on dresser. reports shaking began yesterday. received pain block injection to the lower lumbar this morning. Denies blurred vision or headache. Reports memory loss and uncoordination that started yesterday. reports groin pain from injections. reports intermittent chest pain for the past 2 days that feels like tightness. Coronavirus screen: Vaccine status: Patient reports receiving the 2nd dose of the covid vaccine. Ebola Screen: Patient negative for fever greater than or equal to 101.5 degrees Fahrenheit, and additional compatible Ebola Virus Disease symptoms Patient denies exposure to infectious person. Patient denies travel to an Ebola-affected area in the 21 days before illness onset. Risk Assessment: Do you want to hurt yourself or someone else? Patient reports no desire to harm self or others. Onset of symptoms was March 10, 2022. 13:24 Method Of Arrival: Wheelchair tp1 13:29 Initial Sepsis Screen: Does the patient meet any 2 criteria? No. Patient's initial tp1 sepsis screen is negative. Does the patient have a suspected source of infection? No. Patient's initial sepsis screen is negative. 13:37 Acuity: CINTHYA 3 tp1 Triage Assessment: 13:30 General: Appears in no apparent distress. uncomfortable, Behavior is calm, cooperative. tp1 Pain: Complains of pain in groin and back Pain currently is 8 out of 10 on a pain scale. Neuro: [place] Agitation-Sedation Scale (RASS): 0 - Alert and Calm Level of Consciousness is awake, alert, obeys commands, Oriented to person, place, time, situation, Reports difficulty swallowing dizziness, photophobia weakness Denies blurred vision numbness headache. Cardiovascular: Patient's skin is warm and dry. Respiratory: Airway is patent Respiratory effort is even, unlabored. Historical: - Allergies: 13:30 PENICILLINS; tp1 13:30 Demerol; tp1 13:30 topical iodine; tp1 13:30 meperidine HCl; tp1 - Home Meds: 13:30 hydrocodone-tramadol [Active]; losartan 100 mg Oral tab once daily [Active]; Lyrica tp1 Oral [Active]; methocarbamol 750 mg Oral tab 1 tab twice a day [Active]; Metoprolol Tartrate Oral [Active]; Diovan Oral [Active]; Tramadol Oral [Active]; - PMHx: 13:30 Anxiety; Chronic pain; Depression; Hypertension; High Cholesterol; Diverticulitis; tp1 chronic back pain; - PSHx: 13:30 back sx; heart cath; tp1 - Immunization history:: Client reports receiving the 2nd dose of the Covid vaccine. - Social history:: Smoking status: Patient denies any tobacco usage or history of. Screenin:00 Abuse screen: Denies threats or abuse. Denies injuries from another. Nutritional ko1 screening: No deficits noted. Tuberculosis screening: No symptoms or risk factors identified. Fall Risk None identified. Assessment: 17:00 General: Appears in no apparent distress. Behavior is calm, cooperative, appropriate ko1 for age, anxious. Neuro: No deficits noted. Cardiovascular: No deficits noted. Respiratory: No deficits noted. GI: No deficits noted. : No deficits noted. EENT: No deficits noted. Derm: No deficits noted. Musculoskeletal: No deficits noted. 19:37 General: Appears in no apparent distress. comfortable, Behavior is calm, cooperative. lg3 Pain: Complains of pain in back Pain does not radiate. Pain currently is 5 out of 10 on a pain scale. Quality of pain is described as aching, crampy, Is continuous, chronic. Neuro: No deficits noted. Valencia Agitation-Sedation Scale (RASS): 0 - Alert and Calm Level of Consciousness is awake, alert, obeys commands, Oriented to person, place, time, situation. Cardiovascular: No deficits noted. Denies chest pain, shortness of breath, Capillary refill < 3 seconds Clubbing of nail beds is absent JVD is absent Patient's skin is warm and dry. Respiratory: No deficits noted. Airway is patent Trachea midline Respiratory effort is even, unlabored, Respiratory pattern is regular, symmetrical, Breath sounds are clear bilaterally. GI: No deficits noted. No signs and/or symptoms were reported involving the gastrointestinal system. Abdomen is round non-distended, Abd is soft and non tender X 4 quads. : No deficits noted. No signs and/or symptoms were reported regarding the genitourinary system. EENT: No deficits noted. No signs and/or symptoms were reported regarding the EENT system. Derm: No deficits noted. No signs and/or symptoms reported regarding the dermatologic system. Skin is intact, is healthy with good turgor, Skin is dry, Skin is normal, Skin temperature is warm. Musculoskeletal: No deficits noted. Circulation, motion, and sensation intact. Range of motion: intact in all extremities. Vital Signs: 13:29 BP 179 / 98; Pulse 68; Resp 16; Temp 98.2(TE); Pulse Ox 100% on R/A; Weight 84.82 kg; tp1 Height 5 ft. 4 in. (162.56 cm); 17:02 BP 156 / 84; Pulse 68; Pulse Ox 100% ; ko1 18:11 BP 85 / 58; Pulse 85; Resp 18; Pulse Ox 98% ; ko1 19:27 BP 100 / 63; Pulse 55; Resp 17 S; Pulse Ox 99% on R/A; lg3 20:10 BP 108 / 60; Pulse 63; Resp 18 S; Pulse Ox 99% on R/A; lg3 21:20 BP 106 / 70; Pulse 58; Resp 18; Pulse Ox 98% on R/A; lg3 13:29 Body Mass Index 32.10 (84.82 kg, 162.56 cm) tp1 Breaks Coma Score: 17:00 Eye Response: spontaneous(4). Verbal Response: oriented(5). Motor Response: obeys ko1 commands(6). Total: 15. ED Course: 11:51 Patient arrived in ED. rg4 11:51 Kevon Gonsalez MD is Private Physician. rg4 13:38 Triage completed. tp1 13:38 Arm band placed on. tp1 13:40 Arnulfo Steele NP is PHCP. pm1 13:40 Jared Donaldson MD is Attending Physician. pm1 14:32 CT Head C Spine In Process Unspecified. EDMS 14:32 Abdomen In Process Unspecified. EDMS 14:39 XRAY Chest (1 view) In Process Unspecified. EDMS 16:25 Jennifer Reyes, MAGGI is Primary Nurse. tp1 16:26 Inserted saline lock: 20 gauge in right antecubital area, using aseptic technique. tp1 17:00 Patient has correct armband on for positive identification. Bed in low position. Call ko1 light in reach. Side rails up X 1. 18:58 Kevon Gonsalez MD is Referral Physician. pm1 18:58 Seth Acevedo MD is Referral Physician. pm1 21:20 No provider procedures requiring assistance completed. IV discontinued, intact, lg3 bleeding controlled, No redness/swelling at site. Pressure dressing applied. Administered Medications: 18:43 Drug: NS 0.9% 1000 ml Route: IV; Rate: 1000 ml; Site: right antecubital; ko1 20:10 Follow up: Response: No adverse reaction; IV Status: Completed infusion; IV Intake: lg3 1000ml Medication: 17:00 VIS not applicable for this client. ko1 Intake: 20:10 IV: 1000ml; Total: 1000ml. lg3 Outcome: 18:59 Discharge ordered by MD. pm1 21:20 Discharged to home ambulatory, with significant other. lg3 21:20 Condition: stable 21:20 Discharge instructions given to patient, Instructed on discharge instructions, follow up and referral plans. Demonstrated understanding of instructions, follow-up care. 21:42 Patient left the ED. lg3 Signatures: Dispatcher [employer] EDMS Arnulfo Steele NP FLORAL MERCHANDISER pm1 Swathi Slade rg4 Arlin Pena RN RN lg3 Jennifer Reyes, MAGGI TAY tp1 Veronica Reddy, MAGGI RN ko1 Corrections: (The following items were deleted from the chart) 13:30 13:24 Chief complaint: Patient states: Fell on Thursday. reports rolling out of bed and tp1 hit right elbow on dresser. States she may have hit head on dresser. reports shaking began yesterday. received pain block injection to the lower lumbar this morning. Denies blurred vision or headache. Reports memory loss and uncoordination that started yesterday. tp1 13:38 13:24 Chief complaint: Patient states: Fell on Thursday. reports rolling out of bed and tp1 hit right elbow on dresser. States she may have hit head on dresser. reports shaking began yesterday. received pain block injection to the lower lumbar this morning. Denies blurred vision or headache. Reports memory loss and uncoordination that started yesterday. reports groin pain from injections. reports chest chest pain for the past 2 days that feels like tightness. tp1 16:29 16:26 Inserted saline lock: 20 gauge in left antecubital area, using aseptic technique. tp1 tp1
--- NOTE | 2022-03-13 13:37 | EKG ---
Test Date: 2022-03-12 Test Time: 13:39:52 Charm Filter Operator Helper: TRISH MEASUREMENT RESULTS: Intervals: Rate: 68 WA: 148 QRSD: 80 QT: 412 QTc: 438 [place]: P: 80 WA: 148 QRS: 3 T: 32 INTERPRETIVE STATEMENTS: Normal sinus rhythm Normal ECG Compared to ECG 08/01/2020 11:51:15 No significant changes Electronically Signed On 03-13-22 13:35:04 CDT by Tanner Snyder
[2022-03-13 19:11] VITALS: BP 106/70; O2SAT 98
[2022-03-13 19:41] VITALS: TEMP 98.2
== END 2022-03-12 21:42 | disposition home or self-care (01) ==
LOC: ER 11:50
DX: E86.0 Dehydration (principal); R10.31 Right lower quadrant pain; R07.9 Chest pain, unspecified; R25.1 Tremor, unspecified; I10 Essential (primary) hypertension; E78.00 Pure hypercholesterolemia, unspecified; Z88.0 Allergy status to penicillin; Z88.5 Allergy status to narcotic agent; Z88.8 Allergy status to other drugs, medicaments and biological substances; Z91.048 Other nonmedicinal substance allergy status
CPT/HCPCS: 93005; 85025; 80048; 36415; 85610; 80076; 84484; 83690; 70450; 72125; 74176; 71045; 96360; 99284; J7030